=== PATIENT | female | born 1960 | race Caucasian/White ===

== ENCOUNTER 2020-07-21 07:52 | Outpatient (REF) | payer OTHER, SELFPAY ==
--- NOTE | 2020-07-21 08:12 | US_ITS ---
EXAMINATION: US COMPLETE ABDOMEN WITH LIVER ELASTOGRAPHY CLINICAL INFORMATION: Abdominal fullness. Assess for cholelithiasis, hepatic steatosis COMPARISON: Ultrasound abdomen 07/23/2016 TECHNIQUE: Real-time imaging of the abdominal viscera. Noninvasive ultrasound liver fibrosis assessment is performed using Timi ElastPQ point quantification shear wave elastography (pSWE) with a 5 MHz transducer. Multiple elastography samples are obtained. FINDINGS: PANCREAS: The visualized pancreas is normal in size and contour and echogenicity. There is no pancreatic ductal distention or retroperitoneal effusion. The distal body and tail are obscured by bowel gas and not imaged. ABDOMINAL AORTA: The proximal, middle, and distal aortic segments are normal in caliber. INFERIOR VENA CAVA: Visualized portions are normal. LIVER: The liver is normal in size and smooth in contour. There is mild increased hepatic parenchymal echogenicity suggesting mild hepatic steatosis. There is no focal hepatic parenchymal lesion or intrahepatic ductal dilatation. The right lobe measures 14.9 cm in length. The left lobe measures 9.3 cm in length. Doppler shows portal flow towards the liver. Shear wave elastography provides a median stiffness of 1.68 m/s (reference: normal median stiffness is 0.81 - 1.22 m/s). The IQR/median stiffness to assess sampling precision is 0.28 (reference: optimal IQR/median stiffness is under 0.3). GALLBLADDER: Normal. The gallbladder is physiologically distended without evidence of stones, sludge, polyps, wall thickening or pericholecystic fluid. COMMON BILE DUCT: Normal in caliber measuring 0.3 cm in diameter. RIGHT KIDNEY: Normal. No hydronephrosis. No renal calculi or focal parenchymal lesions. The kidney measures 10.4 cm in maximum dimension. LEFT KIDNEY: Normal. No hydronephrosis. No renal calculi or focal parenchymal lesions. The kidney measures 10.2 cm in maximum dimension. SPLEEN: Normal. The spleen measures 8.5 cm in maximum dimension. FREE FLUID: None. US/US abdomen comp w elastography IMPRESSION: 1. Mild increased hepatic parenchymal echogenicity suggesting mild hepatic steatosis. No focal parenchymal lesion. 2. Elastography: Liver elastography measurements are consistent with a moderate risk for clinically significant liver fibrosis (METAVIR Stage F2-F3). 3. No cholelithiasis or ductal dilatation.
== END 2020-07-21 07:53 | disposition home or self-care (01) ==
LOC: HO.US 07:52
PROVIDERS: Visit Provider Internal Medicine Gastroenterology
DX: R19.8 Other specified symptoms and signs involving the digestive system and abdomen (principal); Z87.19 Personal history of other diseases of the digestive system
CPT/HCPCS: 76705; 76981

== ENCOUNTER → 2020-09-07 11:06 | Outpatient (BNVA) | payer OTHER, SELFPAY | PROVIDERS: PCP Internal Medicine; Visit Provider Internal Medicine Gastroenterology | DX: Z76.89 Persons encountering health services in other specified circumstances (principal) ==

== ENCOUNTER 2020-12-20 09:54 | Outpatient (REF) | payer OTHER, SELFPAY ==
[2020-12-20 11:18] LABS: MANUAL DIFF FLAG NO
[2020-12-20 11:29] LABS: Basophils Percent Auto 0.7 % (0-2); Eosinophils Absolute Auto 0.1 X10*3/uL (0.0-0.4); Eosinophils Percent Auto 2.1 % (0-4); Hematocrit 42.4 % (37-47); Hemoglobin 13.4 g/dl (12.0-16.0); Imm Gran Abs Auto 0.01 X10*3/uL (0.00-0.03); Imm Gran Pct Auto 0.2 % (0.0-0.4); Lymphocytes Absolute Auto 2.2 X10*3/uL (1.2-4.9); Lymphocytes Percent Auto 36.6 % (20-40); Mean Corpuscular HGB Conc 31.6 g/dl (31.0-35.0); Mean Corpuscular Hemoglobin 27.7 pg (27.0-33.0); Mean Corpuscular Volume 87.8 fL (80-98); Mean Platelet Volume 10.3 fL (9.4-12.3); Monocytes Absolute Auto 0.4 X10*3/uL (0.1-1.2); Monocytes Percent Auto 6.9 % (2-11); Neutrophils Absolute Auto 3.3 X10*3/uL (2.0-8.3); Neutrophils Percent Auto 53.5 % (45-73); Platelet Count 217 X10*3/uL (160-400); Red Blood Count 4.83 X10*6/uL (4.20-5.50); Red Cell Distribution Width 12.7 % (11.0-16.0); White Blood Count 6.1 X10*3/uL (4.8-10.8)
[2020-12-20 11:56] LABS: Alanine Aminotransferase 18 U/L (0-31); Albumin Level 4.5 g/dL (3.5-5.0); Alkaline Phosphatase 54 U/L (39-117); Anion Gap 13 (12-20); Aspartate Amino Transferase 16 U/L (5-31); Bilirubin Total 0.6 mg/dL (0.0-1.0); Blood Urea Nitrogen 22 mg/dL (9-16); Calcium 9.1 mg/dL (8.4-10.2); Carbon Dioxide 27 mmol/L (22-29); Chloride 107 mmol/L (96-108); Cholesterol 204 mg/dL; Estimated Glomerular Filt Rate > 60; Glucose Fasting 99 mg/dL (60-99); HDL Cholesterol 55 mg/dL; LDL Cholesterol Calculated 132 mg/dl; Magnesium 2.2 mg/dL (1.6-2.6); Potassium 4.6 mmol/L (3.3-5.1); Sodium 142 mmol/L (135-145); Total Protein 7.2 g/dL (6.5-8.0); Triglycerides 88 mg/dL
[2020-12-20 12:05] LABS: TSH reflex Free T4 0.56 uIU/mL (0.32-4.0)
[2020-12-20 12:18] LABS: Vitamin B12 722 pg/mL (200-900)
[2020-12-25 15:32] LABS: Vitamin D 25-OH, D2 <4 ng/mL; Vitamin D 25-OH, D3 28 ng/mL; Vitamin D 25-OH, Total 28 ng/mL (30-100)
== END 2020-12-20 09:55 | disposition home or self-care (01) ==
LOC: HO.HMGCLDS 09:54
PROVIDERS: PCP Internal Medicine; Visit Provider Internal Medicine
DX: Z00.01 Encounter for general adult medical examination with abnormal findings (principal); F34.1 Dysthymic disorder; R53.83 Other fatigue; Z91.09 Other allergy status, other than to drugs and biological substances
CPT/HCPCS: 36415; 80053; 80061; 82306; 82607; 83735; 84443; 85025

== ENCOUNTER 2021-06-06 10:50 | Outpatient (REF) | payer OTHER, SELFPAY ==
[2021-06-06 13:57] LABS: MANUAL DIFF FLAG NO
[2021-06-06 14:11] LABS: Appearance Urine CLOUDY; Color Urine YELLOW; Glucose Urine UA NEG (NEG); Leukocyte Esterase Urine NEG (NEG); Nitrite Urine NEG (NEG); PH 5.5 (5.0-8.0); Specific Gravity - Urine >= 1.030 (1.005-1.025); Urine Blood NEG (NEG); Urine Ketones NEG (NEG); Urine Protein NEG (NEG-TRACE)
[2021-06-06 14:13] LABS: Basophils Absolute Auto 0.1 X10*3/uL (0.0-0.2); Basophils Percent Auto 0.6 % (0-2); Eosinophils Absolute Auto 0.1 X10*3/uL (0.0-0.4); Eosinophils Percent Auto 0.8 % (0-4); Hematocrit 39.2 % (37-47); Hemoglobin 12.9 g/dl (12.0-16.0); Imm Gran Abs Auto 0.03 X10*3/uL (0.00-0.03); Imm Gran Pct Auto 0.3 % (0.0-0.4); Lymphocytes Absolute Auto 2.4 X10*3/uL (1.2-4.9); Lymphocytes Percent Auto 22.9 % (20-40); Mean Corpuscular HGB Conc 32.9 g/dl (31.0-35.0); Mean Corpuscular Hemoglobin 28.4 pg (27.0-33.0); Mean Corpuscular Volume 86.2 fL (80-98); Mean Platelet Volume 10.6 fL (9.4-12.3); Monocytes Absolute Auto 0.7 X10*3/uL (0.1-1.2); Monocytes Percent Auto 6.3 % (2-11); Neutrophils Absolute Auto 7.3 X10*3/uL (2.0-8.3); Neutrophils Percent Auto 69.1 % (45-73); Platelet Count 198 X10*3/uL (160-400); Red Blood Count 4.55 X10*6/uL (4.20-5.50); Red Cell Distribution Width 13.2 % (11.0-16.0); White Blood Count 10.6 X10*3/uL (4.8-10.8)
[2021-06-06 14:17] LABS: Alanine Aminotransferase 16 U/L (0-31); Albumin Level 4.3 g/dL (3.5-5.0); Alkaline Phosphatase 59 U/L (39-117); Anion Gap 12 (12-20); Aspartate Amino Transferase 17 U/L (5-31); Bilirubin Total 0.7 mg/dL (0.0-1.0); Blood Urea Nitrogen 16 mg/dL (9-16); Calcium 9.8 mg/dL (8.4-10.2); Carbon Dioxide 26 mmol/L (22-29); Chloride 107 mmol/L (96-108); Estimated Glomerular Filt Rate > 60; Glucose Random 91 mg/dL (60-115); Potassium 4.3 mmol/L (3.3-5.1); Sodium 141 mmol/L (135-145); Total Protein 6.9 g/dL (6.5-8.0)
[2021-06-06 14:38] LABS: TSH reflex Free T4 0.59 uIU/mL (0.32-4.0)
[2021-06-06 14:47] LABS: Vitamin B12 767 pg/mL (200-900)
[2021-06-11 12:22] LABS: Vitamin D 25-OH, D2 <4 ng/mL; Vitamin D 25-OH, D3 23 ng/mL; Vitamin D 25-OH, Total 23 ng/mL (30-100)
== END 2021-06-06 10:51 | disposition home or self-care (01) ==
LOC: HO.HMGCLDS 10:50
PROVIDERS: PCP Internal Medicine; Visit Provider Internal Medicine
DX: M62.89 Other specified disorders of muscle (principal); R21 Rash and other nonspecific skin eruption; R53.83 Other fatigue
CPT/HCPCS: 36415; 80053; 81003; 82306; 82550; 82607; 84443; 85025

== ENCOUNTER 2021-07-17 16:38 | Outpatient (REF) | payer OTHER, SELFPAY ==
[2021-07-18 09:26] LABS: BV Int Neg Control Negative (Negative); BV Int Pos Control Positive (Positive)
== END 2021-07-17 16:39 | disposition home or self-care (01) ==
LOC: HO.LNP 16:38
PROVIDERS: Visit Provider Physician Assistant Medical
DX: N76.0 Acute vaginitis (principal)
CPT/HCPCS: 87480; 87510; 87660

== ENCOUNTER → 2021-12-25 09:37 | Outpatient (BNVA) | payer OTHER, SELFPAY | PROVIDERS: Referring Provider Internal Medicine; Visit Provider Internal Medicine Gastroenterology | DX: K76.0 Fatty (change of) liver, not elsewhere classified (principal); K75.81 Nonalcoholic steatohepatitis (NASH) | CPT/HCPCS: 99212 ==

== ENCOUNTER 2022-01-26 09:53 | Outpatient (REF) | payer OTHER, SELFPAY ==
--- NOTE | ~2022-01-26 | XR_ITS ---
EXAMINATION: XR FOOT, LEFT CLINICAL INFORMATION: Pain left foot. COMPARISON: None TECHNIQUE: AP, lateral, and oblique views of the left foot. FINDINGS: The ankle mortise and subtalar joints are normal. There is no visible acute fracture, dislocation or subluxation seen. The soft tissues are normal. XR/XR foot LT 2V IMPRESSION: Unremarkable left foot.
[2022-01-26 11:16] LABS: MANUAL DIFF FLAG NO
[2022-01-26 11:21] LABS: Basophils Absolute Auto 0.1 X10*3/uL (0.0-0.2); Basophils Percent Auto 0.9 % (0-2); Eosinophils Absolute Auto 0.2 X10*3/uL (0.0-0.4); Eosinophils Percent Auto 2.6 % (0-4); Hemoglobin 13.3 g/dl (12.0-16.0); Imm Gran Abs Auto 0.01 X10*3/uL (0.00-0.03); Imm Gran Pct Auto 0.2 % (0.0-0.4); Lymphocytes Absolute Auto 2.9 X10*3/uL (1.2-4.9); Lymphocytes Percent Auto 43.4 % (20-40); Mean Corpuscular HGB Conc 32.4 g/dl (31.0-35.0); Mean Corpuscular Hemoglobin 27.5 pg (27.0-33.0); Mean Corpuscular Volume 84.7 fL (80.0-98.0); Mean Platelet Volume 10.5 fL (9.4-12.3); Monocytes Absolute Auto 0.5 X10*3/uL (0.1-1.2); Monocytes Percent Auto 7.6 % (2-11); Neutrophils Percent Auto 45.3 % (45-73); Platelet Count 203 X10*3/uL (160-400); Red Blood Count 4.84 X10*6/uL (4.20-5.50); Red Cell Distribution Width 12.9 % (11.0-16.0); White Blood Count 6.6 X10*3/uL (4.8-10.8)
[2022-01-26 11:27] LABS: INTERNATIONAL NORM RATIO 1.1 (0.9-1.1); Prothrombin Time 12.7 SEC (9.9-13.0)
[2022-01-26 12:10] LABS: TSH reflex Free T4 1.24 uIU/mL (0.32-4.0)
[2022-01-26 12:11] LABS: Alanine Aminotransferase 20 U/L (0-31); Albumin Level 4.6 g/dL (3.5-5.0); Alkaline Phosphatase 68 U/L (39-117); Anion Gap 13 (12-20); Aspartate Amino Transferase 18 U/L (5-31); Bilirubin Total 0.7 mg/dL (0.0-1.0); Blood Urea Nitrogen 19 mg/dL (9-16); Calcium 9.9 mg/dL (8.4-10.2); Carbon Dioxide 26 mmol/L (22-29); Chloride 105 mmol/L (96-108); Estimated Glomerular Filt Rate > 60; Glucose Fasting 95 mg/dL (60-99); Potassium 4.9 mmol/L (3.3-5.1); Sodium 139 mmol/L (135-145); Total Protein 7.6 g/dL (6.5-8.0)
[2022-01-26 12:26] LABS: Ferritin 188 ng/mL (10-250); Folate 13.8 ng/mL (> or = 4.0); Vitamin B12 806 pg/mL (200-900)
[2022-02-01 12:36] LABS: Vitamin D 25-OH, D2 <4 ng/mL; Vitamin D 25-OH, D3 23 ng/mL; Vitamin D 25-OH, Total 23 ng/mL (30-100)
== END 2022-01-26 09:54 | disposition home or self-care (01) ==
LOC: HO.HMGCLDS 09:53
PROVIDERS: PCP Internal Medicine; Visit Provider Internal Medicine Gastroenterology
DX: Z00.01 Encounter for general adult medical examination with abnormal findings (principal); K75.81 Nonalcoholic steatohepatitis (NASH); M79.672 Pain in left foot; G47.9 Sleep disorder, unspecified; R53.83 Other fatigue
CPT/HCPCS: 36415; 73620; 80053; 82306; 82607; 82728; 82746; 84443; 85025; 85610

== ENCOUNTER 2022-02-05 10:31 | Outpatient (REF) | payer OTHER, SELFPAY ==
--- NOTE | ~2022-02-05 | US_ITS ---
EXAMINATION: US ABDOMEN LIMITED WITH LIVER ELASTOGRAPHY CLINICAL INFORMATION: Fatty change of liver. COMPARISON: None. TECHNIQUE: Real-time imaging of the abdominal viscera. Noninvasive ultrasound liver fibrosis assessment is performed using Timi ElastPQ point quantification shear wave elastography (2D-SWE) with a C5-2 MHz transducer. Multiple elastography samples are obtained. FINDINGS: PANCREAS: Normal. The visualized pancreatic head and body are normal in appearance. The remainder of the pancreas is obscured from visualization by the overlying bowel gas. LIVER: The liver demonstrates normal size, contour and echogenicity. No focal lesion or intrahepatic biliary duct dilatation. The right lobe measures 15.0 cm in length. The left lobe measures 8.3 cm in length. Portal flow is hepatopedal. Shear wave liver elastography median stiffness is 1.5 m/s (reference: normal median stiffness is 1.3 m/s or less). Previously it measured 1.68 m/s. IQR/median stiffness to assess sampling precision is 0.08 (reference: good quality data set is IQR/median stiffness of 0.15 or less). Previously measured 0.28. GALLBLADDER: Normal. The gallbladder is physiologically distended without evidence of stones, sludge, polyps, wall thickening or pericholecystic fluid. COMMON BILE DUCT: Normal in caliber measuring 0.32 cm in diameter. RIGHT KIDNEY: Normal. No hydronephrosis. No renal calculi or focal parenchymal lesions. The kidney measures 10.0 cm in maximum dimension. FREE FLUID: None. US/US abdomen zuñiga w elastography IMPRESSION: 1. Normal hepatic liver echotexture. No focal lesion. 2. Pancreas, gallbladder, common bile duct and right kidney are unremarkable. 2. Liver elastography: Median liver stiffness measures 1.5 corresponding to cACL ruled out. REFERENCE: Society of Radiologists in Ultrasound Liver Stiffness Thresholds (2020): LIVER STIFFNESS THRESHOLDS: *Liver Stiffness equal or less than 1.3 m/s: High probability of being normal. *Liver Stiffness less than 1.7 m/s: In the absence of other known clinical signs, rules out compensated advanced chronic liver disease. *Liver Stiffness 1.7-2.1 m/s: Suggestive of compensated advanced chronic liver disease but need further test for confirmation. *Liver Stiffness over 2.1 m/s: Rules in compensated advanced chronic liver disease. *Liver Stiffness over 2.4 m/s: Suggestive of clinically significant portal hypertension. QUALITY OF DATA SET: *IQR/Median value equal or less than 0.15 implies a quality data set. *IQR/Median value over 0.15 implies a poor quality data set. SIGNIFICANT CHANGE FROM PRIOR EXAM: Significant change if liver stiffness measurement is 10% or greater from prior exam. OTHER CONSIDERATIONS: The stage of liver fibrosis may be overestimated in the setting of acute hepatitis, liver inflammation, elevated liver function tests, hepatic vascular congestion, obstructive cholestasis, non-fasting state, and infiltrative diseases such as amyloidosis and lymphoma. In some patients with NAFLD, the liver stiffness thresholds for compensated advanced chronic liver disease may be lower. In causes other than viral hepatitis and NAFLD, liver stiffness thresholds are not well established.
== END 2022-02-05 10:32 | disposition home or self-care (01) ==
LOC: HO.US 10:31
PROVIDERS: Visit Provider Internal Medicine Gastroenterology
DX: K76.0 Fatty (change of) liver, not elsewhere classified (principal)
CPT/HCPCS: 76705; 76981

== ENCOUNTER → 2022-06-05 12:36 | Outpatient (BNVA) | payer OTHER, SELFPAY | PROVIDERS: PCP Internal Medicine; Visit Provider Nurse Practitioner Family | DX: G47.9 Sleep disorder, unspecified (principal); R40.0 Somnolence; R06.83 Snoring; R20.0 Anesthesia of skin | CPT/HCPCS: 99202 ==

== ENCOUNTER → 2022-06-18 14:28 | Outpatient (REF) | payer OTHER, SELFPAY | LOC: HO.SL 14:28 | PROVIDERS: PCP Internal Medicine; Visit Provider Nurse Practitioner Family | DX: G47.9 Sleep disorder, unspecified (principal); R40.0 Somnolence; R06.83 Snoring | CPT/HCPCS: 95806 ==

== ENCOUNTER → 2022-11-06 10:54 | Outpatient (BNVA) | payer OTHER, SELFPAY | PROVIDERS: PCP Internal Medicine; Visit Provider Nurse Practitioner Family | DX: R06.83 Snoring (principal); R20.0 Anesthesia of skin | CPT/HCPCS: 99212 ==

== ENCOUNTER 2023-01-17 12:07 | Outpatient (REF) | payer OTHER, SELFPAY ==
--- NOTE | 2023-01-17 10:30 | EMG_ITS ---
Bilateral median and ulnar motor and sensory studies were performed. Bilateral radial sensory studies were performed and paraspinal muscles were tested with a needle. IMPRESSION: 1. [id number] left median neuropathy across carpal tunnel. 2. Mild bilateral ulnar neuropathy across cubital tunnel. MD SHAKIRA Jean/NAVARRO / [id number]
== END 2023-01-17 12:08 | disposition home or self-care (01) ==
LOC: HO.NEURO 12:07
PROVIDERS: PCP Internal Medicine; Visit Provider Nurse Practitioner Family
DX: R20.0 Anesthesia of skin (principal)
CPT/HCPCS: 95886; 95911

== ENCOUNTER 2023-02-04 06:42 | Outpatient (REF) | payer OTHER, SELFPAY ==
[2023-02-04 11:20] LABS: MANUAL DIFF FLAG NO
[2023-02-04 11:39] LABS: Basophils Absolute Auto 0.1 X10*3/uL (0.0-0.2); Basophils Percent Auto 1.1 % (0-2); Eosinophils Absolute Auto 0.3 X10*3/uL (0.0-0.4); Hematocrit 41.7 % (37.0-47.0); Hemoglobin 13.3 g/dl (12.0-16.0); Imm Gran Abs Auto 0.01 X10*3/uL (0.00-0.03); Imm Gran Pct Auto 0.2 % (0.0-0.4); Immature Retic Fraction 9.3 % (3.0-15.9); Lymphocytes Absolute Auto 2.6 X10*3/uL (1.2-4.9); Lymphocytes Percent Auto 42.3 % (20-40); Mean Corpuscular HGB Conc 31.9 g/dl (31.0-35.0); Mean Corpuscular Hemoglobin 27.7 pg (27.0-33.0); Mean Corpuscular Volume 86.9 fL (80.0-98.0); Mean Platelet Volume 10.3 fL (9.4-12.3); Monocytes Absolute Auto 0.5 X10*3/uL (0.1-1.2); Monocytes Percent Auto 8.5 % (2-11); Neutrophils Absolute Auto 2.7 x10*3/uL (2.0-8.3); Neutrophils Percent Auto 43.9 % (45-73); Platelet Count 225 X10*3/uL (160-400); Retic HGB Equivalent 33.4 pg (30.0-35.0); Reticulocyte Percent 1.6 % (0.5-1.8); Reticulocytes Absolute 0.077 X10*6/uL (0.026-0.095); White Blood Count 6.2 X10*3/uL (4.8-10.8)
[2023-02-04 12:02] LABS: Alanine Aminotransferase 17 U/L (0-31); Albumin Level 4.3 g/dL (3.5-5.0); Alkaline Phosphatase 67 U/L (39-117); Anion Gap 10 (12-20); Aspartate Amino Transferase 14 U/L (5-31); Bilirubin Total 0.4 mg/dL (0.0-1.0); Blood Urea Nitrogen 18 mg/dL (9-16); Calcium 9.1 mg/dL (8.4-10.2); Carbon Dioxide 27 mmol/L (22-29); Chloride 110 mmol/L (96-108); Cholesterol 191 mg/dL; Estimated Glomerular Filt Rate > 60; Glucose Fasting 102 mg/dL (60-99); HDL Cholesterol 45 mg/dL; LDL Cholesterol Calculated 126 mg/dl; Potassium 4.5 mmol/L (3.3-5.1); Sodium 142 mmol/L (135-145); Total Protein 6.8 g/dL (6.5-8.0); Triglycerides 104 mg/dL
[2023-02-04 12:19] LABS: TSH reflex Free T4 1.41 uIU/mL (0.32-4.0)
[2023-02-09 12:42] LABS: Vitamin D 25-OH, D2 <4 ng/mL; Vitamin D 25-OH, D3 22 ng/mL; Vitamin D 25-OH, Total 22 ng/mL (30-100)
== END 2023-02-04 06:43 | disposition home or self-care (01) ==
LOC: HO.HMGCLDS 06:42
PROVIDERS: PCP Internal Medicine; Visit Provider Internal Medicine
DX: Z00.01 Encounter for general adult medical examination with abnormal findings (principal); K76.0 Fatty (change of) liver, not elsewhere classified; R20.0 Anesthesia of skin
CPT/HCPCS: 36415; 80053; 80061; 82306; 84443; 85025; 85045

== ENCOUNTER 2023-10-22 11:59 | Outpatient (AMB) | payer OTHER, SELFPAY ==
[2023-10-22 12:16] VITALS: BP 130/80; PULSE 70; O2SAT 97; BMI 30.6
--- NOTE | 2023-10-22 12:16 | A.OFFPC_ITS ---
Vital Signs 10/22/23 12:16 Height 5 ft 5 in Weight 184 lb BMI 30.6 BP 130/80 Blood Pressure Location Rt brachial Position Sitting Pulse 70 Pulse Source Pulse Oximeter Pulse Oximetry (%) 97 Oxygen Delivery Method Room Air Intake Visit Reasons: Asthma Allergies codeine [CODEINE] Allergy (Intermediate, Verified 10/22/23 12:16) DIZZINESS loratadine [LORATADINE] Allergy (Intermediate, Verified 10/22/23 12:16) NOSEBLEED, nose bleed, nose bleed,headaches amoxicillin [AMOXICILLIN] Allergy (Unknown, Verified 10/22/23 12:16) UNKNOWN REACTION-CHILDHOOD ALLERGY Environmental Allergy (Unknown, Uncoded 11/06/22 10:59) unknown Codeine Phosphate Adverse Reaction (Unknown, Uncoded 11/06/22 10:59) lightheaded Medication List - Last Reconciled 10/22/23 by Arabella Breaux MD albuterol sulfate 90 mcg/actuation (ProAir HFA) 1 inh inhalation QID PRN 30 days mometasone-formoterol 100-5 mcg/actuation (Dulera) 2 puffs inhalation BID 30 days Tobacco use date assessed: 10/22/23 Dental Screening Dental Screen Date: 10/22/23 Did you have a dental visit in the last 12 months?: Yes Did you have a dental problem in the last 6 months where you did not have access to dental care?: No Was dental information given to patient?: Patient has dentist HPI Asthma HPI Details Patient is 63-year-old female came in today to be evaluated for exacerbation of asthma Patient says that she has been feeling like that for the 5 month she waited but is not getting better Now she is having clear mucus with cough when she exerts. She is also feeling tired and fatigue There is no fever chills no chest pain no nausea no vomiting no abdominal pain She has not been using her maintenance inhaler correctly She is on Dulera and she is only using it as needed Explained to patient that she needs to start using it every day 2 puffs 12 hours apart and rinse her mouth after Albuterol alone will not control her asthma I have sent refill for both inhalers Patient is to give me a call in a month if she has not feeling better I have also ordered labs for her [facility] Medical History Hepatic steatosis Abdominal fullness GERD (gastroesophageal reflux disease) Surgical History Hx of brain surgery Hx of colonoscopy Family History Father No problems noted. Mother No problems noted. 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 Taj Gale, Michelle Su, Dani Campa and colleagues, with an educational jarocho from [employer]. Review of Systems Const Denies chills and Denies fever(s) ENT Denies epistaxis and Denies nasal discharge Card Denies chest pain Resp Denies hemoptysis GI Denies diarrhea and Denies nausea Skin/Breast Denies rash Neuro Reports no additional complaints Psych Reports no additional complaints Endo Reports no additional complaints Physical exam (Primary Care) Vital Signs: Last Vital Signs Pulse 70 10/22/23 12:16 BP 130/80 10/22/23 12:16 Pulse Ox 97 10/22/23 12:16 Oxygen Delivery Method Room Air 10/22/23 12:16 BMI result Body Mass Index 30.6 Tobacco/Smoking Status: Tobacco use Status Tobacco use date assessed 10/22/23 10/22/23 12:18 Patient Tobacco Use Status Former Tobacco user 10/22/23 12:18 e-Cigarette/Vaping Use Never Used 10/22/23 12:18 Thrive Assessment: Date of Thrive Assessment Date Thrive assessed 02/01/23 10/22/23 12:18 Const General: cooperative, comfortable and no acute distress Orientation/consciousness: patient oriented x3 HENMT Head: Yes normocephalic Eyes General: appearance normal, both eyes and all related structures Neck Neck: Yes supple Resp Effort & Inspection: normal respiratory effort, no cough and no stridor Cardio Rhythm: regular rhythm Heart sounds: S1 normal heart sound present and S2 normal heart sound present Skin General skin exam: turgor normal Neuro General: patient oriented x3, tone normal and moves all extremities Extrem Right lower extremity: no edema Left lower extremity: no edema Assessment and Plan Assessment & Plan (1) Asthma exacerbation: Code(s): J45.901 - Unspecified asthma with (acute) exacerbation Qualifiers: Asthma persistence: persistent Asthma severity: moderate Qualified Code(s): J45.41 - Moderate persistent asthma with (acute) exacerbation (2) Tired: Code(s): R53.83 - Other fatigue (3) Fatigue: Code(s): R53.83 - Other fatigue Qualifiers: Fatigue type: chronic, unspecified Qualified Code(s): R53.82 - Chronic fatigue, unspecified Plan Patient is 63-year-old female came in today to be evaluated for exacerbation of asthma Patient says that she has been feeling like that for the 5 month she waited but is not getting better Now she is having clear mucus with cough when she exerts. She is also feeling tired and fatigue There is no fever chills no chest pain no nausea no vomiting no abdominal pain She has not been using her maintenance inhaler correctly She is on Dulera and she is only using it as needed Explained to patient that she needs to start using it every day 2 puffs 12 hours apart and rinse her mouth after Albuterol alone will not control her asthma I have sent refill for both inhalers Patient is to give me a call in a month if she has not feeling better I have also ordered labs for her Orders: Orders Comprehensive Met. Panel Today J45.901 - Unspecified asthma with (acute) exacerbation, R53.83 - Other fatigue TSH reflex Free T4 Today J45.901 - Unspecified asthma with (acute) exacerbation, R53.83 - Other fatigue Vitamin D 25-OH (D2 and D3) Today J45.90 - Unspecified asthma with (acute) exacerbation, R53.83 - Other fatigue Vitamin B12 Today J45.901 - Unspecified asthma with (acute) exacerbation, R53.83 - Other fatigue Complete Blood Count Auto Diff Today J45.90 - Unspecified asthma with (acute) exacerbation, R53.83 - Other fatigue Medications: Changed From mometasone-formoterol 100-5 mcg/actuation (Dulera) 2 puffs inhalation BID 30 days 8.8 grams 3RF To mometasone-formoterol 100-5 mcg/actuation (Dulera) Take 2 puffs 12 hours apart, rinse your mouth after 2 puffs inhalation BID 8.8 grams 6RF 30 days Refilled albuterol sulfate 90 mcg/actuation (ProAir HFA) 1 inh inhalation QID PRN 18 grams 3RF shortness of breath or wheezing 30 days Coding Level of Care Code Est Pt Level 4 (07119) Diagnoses Moderate persistent asthma with exacerbation J45.41 Asthma persistence: persistent Asthma severity: moderate Tired R53.83 Chronic fatigue R53.82 Fatigue type: chronic, unspecified
== END 2023-10-22 16:21 | disposition home or self-care (01) ==
PROVIDERS: PCP Internal Medicine; Visit Provider Internal Medicine
DX: J45.41 Moderate persistent asthma with (acute) exacerbation (principal); R53.83 Other fatigue; R53.82 Chronic fatigue, unspecified
CPT/HCPCS: 99214

== ENCOUNTER 2023-10-22 12:31 | Outpatient (REF) | payer OTHER, SELFPAY ==
[2023-10-22 16:13] LABS: MANUAL DIFF FLAG NO
[2023-10-22 16:17] LABS: Basophils Absolute Auto 0.1 X10*3/uL (0.0-0.2); Eosinophils Absolute Auto 0.3 X10*3/uL (0.0-0.4); Eosinophils Percent Auto 3.2 % (0-4); Hematocrit 40.5 % (37.0-47.0); Hemoglobin 13.1 g/dl (12.0-16.0); Imm Gran Abs Auto 0.02 X10*3/uL (0.00-0.03); Imm Gran Pct Auto 0.2 % (0.0-0.4); Lymphocytes Absolute Auto 2.5 X10*3/uL (1.2-4.9); Lymphocytes Percent Auto 30.1 % (20-40); Mean Corpuscular HGB Conc 32.3 g/dl (31.0-35.0); Mean Corpuscular Hemoglobin 27.6 pg (27.0-33.0); Mean Corpuscular Volume 85.3 fL (80.0-98.0); Mean Platelet Volume 10.6 fL (9.4-12.3); Monocytes Absolute Auto 0.6 X10*3/uL (0.1-1.2); Monocytes Percent Auto 7.2 % (2-11); Neutrophils Absolute Auto 4.8 x10*3/uL (2.0-8.3); Neutrophils Percent Auto 58.3 % (45-73); Platelet Count 227 X10*3/uL (160-400); Red Blood Count 4.75 X10*6/uL (4.20-5.50); Red Cell Distribution Width 13.1 % (11.0-16.0); White Blood Count 8.2 X10*3/uL (4.8-10.8)
[2023-10-22 16:48] LABS: Alanine Aminotransferase 16 U/L (0-31); Albumin Level 4.3 g/dL (3.5-5.0); Alkaline Phosphatase 70 U/L (39-117); Anion Gap 11 (12-20); Aspartate Amino Transferase 15 U/L (5-31); Bilirubin Total 0.2 mg/dL (0.0-1.0); Blood Urea Nitrogen 18 mg/dL (9-16); Calcium 9.6 mg/dL (8.4-10.2); Carbon Dioxide 26 mmol/L (22-29); Chloride 109 mmol/L (96-108); Estimated Glomerular Filt Rate > 60; Glucose Random 85 mg/dL (60-115); Sodium 142 mmol/L (135-145); Total Protein 7.4 g/dL (6.5-8.0)
[2023-10-22 16:50] LABS: TSH reflex Free T4 0.81 uIU/mL (0.32-4.0)
[2023-10-22 16:54] LABS: Vitamin B12 834 pg/mL (200-900)
[2023-10-27 15:14] LABS: Vitamin D 25-OH, D2 <4 ng/mL; Vitamin D 25-OH, D3 16 ng/mL; Vitamin D 25-OH, Total 16 ng/mL (30-100)
== END 2023-10-22 12:32 | disposition home or self-care (01) ==
LOC: HO.HMGCLDS 12:31
PROVIDERS: PCP Internal Medicine; Visit Provider Internal Medicine
DX: R53.83 Other fatigue (principal); J45.901 Unspecified asthma with (acute) exacerbation
CPT/HCPCS: 36415; 80053; 82306; 82607; 84443; 85025

== ENCOUNTER 2023-10-28 09:54 | Outpatient (AMB) | payer OTHER, SELFPAY ==
--- NOTE | 2023-10-28 10:14 | A.OFFVIS_ITS ---
Intake Vital Signs 10/28/23 10:17 Height 5 ft 5 in Weight 184 lb BMI 30.6 BP 116/59 L Blood Pressure Location Lt brachial Position Sitting Pulse 72 Intake Visit Reasons: PT REQ APPOINTMENT ABDOMINAL PAIN Intake Note: Patient foloow up for abdominal pain. 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: No Accompanied by: Self / Same As Patient Allergies codeine [CODEINE] Allergy (Intermediate, Verified 10/28/23 10:12) DIZZINESS loratadine [LORATADINE] Allergy (Intermediate, Verified 10/28/23 10:12) NOSEBLEED, nose bleed, nose bleed,headaches amoxicillin [AMOXICILLIN] Allergy (Unknown, Verified 10/28/23 10:12) UNKNOWN REACTION-CHILDHOOD ALLERGY Environmental Allergy (Unknown, Uncoded 11/06/22 10:59) unknown Codeine Phosphate Adverse Reaction (Unknown, Uncoded 11/06/22 10:59) lightheaded HPI PT REQ APPOINTMENT ABDOMINAL PAIN HPI Details 63 yr old f here for f/u RECAP; last seen [address] Hyatt for fatty liver she had hep C treatment 2017 for G3 and had treatment with cure ]] INTERIM: SHe has been having worsening GERD for 1 year with epigastric discomfort she has mild nausea no vomiting she has noted blood MO, sometimes streaks in pants she had omeprazole in past and gave her diarrhea denies straining at stool EXAM: GENERAL: The patient is well developed and nontoxic. VITAL SIGNS:see workflow HEENT: Nonicteric sclerae, PERRLA, EOMI. Oropharynx clear. Moist mucous membranes. Conjunctivae appear well perfused. No thyroid mass. CHEST: Chest wall is nontender. HEART: Regular rate and rhythm without murmurs. LUNGS: Clear to auscultation bilaterally. ABDOMEN: Soft, positive bowel sounds, nontender, no organomegaly.no flank tenderness SKIN: No rash, no excessive bruising, petechiae, or purpura. NEUROLOGIC: Cranial nerves II-XII intact without motor/sensory deficit. A/P: NAFLD< LFT have been normal, REctal bleeding, could be hemorrhoids, proctitis GERD and epigastric discomfort- PLAN: 1/EGD and colo w suprep and zofran 2/ H pylori breath test, stop pepcid for 3 d and can use carafate, 3/ recent labs from PCP reviewed 10/22-- nml HGB [facility] Medical History Hepatic steatosis Abdominal fullness GERD (gastroesophageal reflux disease) Surgical History Hx of brain surgery Hx of colonoscopy Family History Father No problems noted. Mother No problems noted. 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 Cognitive needs: No Hearing needs: No Vision needs: No Physical Exam Vital Signs: Last Vital Signs Pulse 72 10/28/23 10:17 BP 116/59 L 10/28/23 10:17 BMI result Body Mass Index 30.6 Assessment & Plan Assessment & Plan (1) GERD (gastroesophageal reflux disease): Code(s): K21.9 - Gastro-esophageal reflux disease without esophagitis Plan: NAFLD< LFT have been normal, REctal bleeding, could be hemorrhoids, proctitis GERD and epigastric discomfort- PLAN: 1/EGD and colo w suprep and zofran 2/ H pylori breath test, stop pepcid for 3 d and can use carafate, 3/ recent labs from PCP reviewed 10/22-- nml HGB (2) Hepatic steatosis: Code(s): K76.0 - Fatty (change of) liver, not elsewhere classified Plan: NAFLD< LFT have been normal, REctal bleeding, could be hemorrhoids, proctitis GERD and epigastric discomfort- PLAN: 1/EGD and colo w suprep and zofran 2/ H pylori breath test, stop pepcid for 3 d and can use carafate, 3/ recent labs from PCP reviewed 10/22-- nml HGB (3) Rectal bleeding: Code(s): K62.5 - Hemorrhage of anus and rectum Plan: NAFLD< LFT have been normal, REctal bleeding, could be hemorrhoids, proctitis GERD and epigastric discomfort- PLAN: 1/EGD and colo w suprep and zofran 2/ H pylori breath test, stop pepcid for 3 d and can use carafate, 3/ recent labs from PCP reviewed 10/22-- nml HGB Orders: Orders H Pylori Breath Test Today Medications: New sodium,potassium,mag sulfates 17.5-3.13-1.6 gram (Suprep Bowel Prep Kit) DILUTE; drink 1/2 at 6-8 pm and half at 11 PM- 1AM 354 mL 0RF ondansetron 4 mg PO Q8H PRN 7 tabs 0RF nausea and vomiting sucralfate (Carafate) swish in mouth and swallow; use after food/drink 5 mL PO QID 400 mL 0RF Coding Level of Care Code Est Pt Level 4 (29001) Diagnoses GERD (gastroesophageal reflux disease) K21.9 Hepatic steatosis K76.0 Rectal bleeding K62.5
[2023-10-28 10:17] VITALS: BP 116/59; PULSE 72; BMI 30.6
== END 2023-10-28 11:25 | disposition home or self-care (01) ==
PROVIDERS: PCP Internal Medicine; Visit Provider Internal Medicine Gastroenterology
DX: K21.9 Gastro-esophageal reflux disease without esophagitis (principal); K76.0 Fatty (change of) liver, not elsewhere classified; K62.5 Hemorrhage of anus and rectum
CPT/HCPCS: 99214

== ENCOUNTER → 2023-10-28 09:54 | Outpatient (BNVA) | payer OTHER, SELFPAY | PROVIDERS: PCP Internal Medicine; Visit Provider Internal Medicine Gastroenterology | DX: K21.9 Gastro-esophageal reflux disease without esophagitis (principal); R10.13 Epigastric pain; K76.0 Fatty (change of) liver, not elsewhere classified; K62.5 Hemorrhage of anus and rectum | CPT/HCPCS: 99212 ==

== ENCOUNTER 2023-10-30 10:45 | Day surgery (SDC) | payer OTHER, SELFPAY ==
--- NOTE | 2023-10-29 11:57 | P.CONAN_ITS ---
Documented by User: Kamille Richardson NP 10/29/23 11:57 HPI - Anesthesia Eval Consult details Narrative: 63yo F for Upper Endoscopy and Colonoscopy [facility] Active Problems Active Problems: All Active Problems (Updated 10/28/23 @ 10:45 by Grace Lou MD) Rectal bleeding (Acute) Asthma exacerbation (Acute) Fatigue (Acute) Seasonal asthma (Acute) Numbness in both hands (Acute) Snoring (Acute) Daytime sleepiness (Acute) Foot pain, left (Acute) Sleep disturbance (Acute) Fatty liver (Acute) Vaginitis (Acute) Rash (Acute) Muscle stiffness (Acute) Tired (Acute) Dermatitis (Acute) Dysthymia (Acute) Tired (Acute) Encounter for general adult medical examination with abnormal findings (Acute) Environmental allergies (Acute) Hepatic steatosis (Acute) Nausea (Acute) Abdominal fullness (Acute) GERD (gastroesophageal reflux disease) (Acute) Past Medical History Medical History Hepatic steatosis Abdominal fullness GERD (gastroesophageal reflux disease) Family History Family History Father No problems noted. Mother No problems noted. 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 Cognitive needs: No Hearing needs: No Vision needs: No Meds Allergies Allergy/AdvReac Type Severity Reaction Status Date / Time codeine [CODEINE] Allergy Intermediate DIZZINESS Verified 10/28/23 10:12 loratadine [LORATADINE] Allergy Intermediate NOSEBLEED, Verified 10/28/23 10:12 nose bleed, nose bleed,headaches amoxicillin [AMOXICILLIN] Allergy Unknown UNKNOWN Verified 10/28/23 10:12 REACTION-CHILDHOOD ALLERGY Environmental Allergy Unknown unknown Uncoded 11/06/22 10:59 Codeine Phosphate AdvReac Unknown lightheaded Uncoded 02/14/23 10:59 Assessment and Plan Assessment Anesthesia Assessment: Chart Reviewed Documented by User: Trev Solomon MD 10/30/23 11:02 PMFSH Past Medical History Medical History Hepatic steatosis Abdominal fullness GERD (gastroesophageal reflux disease) Family History Family History Father No problems noted. Mother No problems noted. Family history of problems with anesthesia: No Surgical History Surgical History Hx of brain surgery Hx of colonoscopy History of Problems with Anesthesia: No Social History Social History [facility]hold Members: None 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 Cognitive needs: No Hearing needs: No Vision needs: No Meds Allergies Allergy/AdvReac Type Severity Reaction Status Date / Time codeine [CODEINE] Allergy Intermediate DIZZINESS Verified 10/28/23 10:12 loratadine [LORATADINE] Allergy Intermediate NOSEBLEED, Verified 10/28/23 10:12 nose bleed, nose bleed,headaches amoxicillin [AMOXICILLIN] Allergy Unknown UNKNOWN Verified 10/28/23 10:12 REACTION-CHILDHOOD ALLERGY Environmental Allergy Unknown unknown Uncoded 11/06/22 10:59 Codeine Phosphate AdvReac Unknown lightheaded Uncoded 11/06/22 10:59 Exam Airway Mallampati Class: II TM Dist: >3cm Neck ROM: Full Assessment and Plan Assessment Anesthesia Assessment: Anesthesia Plan Discussed Final Anesthetic Review Family History of Problems with Anesthesia: No History of Problems with Anesthesia: No NPO: Yes ASA Class: II Final Preanesthetic Review: No Changes in Pt Med Stat, Meds/Allgs Chart Reviewed, Consent Obtained/Reviewed and Anes Risks/Benef Reviewed Patient Risk: Low Procedure Risk: Low Anesthetic Plan Anesthetic Plan: TIVA Disposition: Standard PACU
[2023-10-30 11:15] VITALS: BP 132/78; PULSE 74; RESP 18; TEMP 36.6; O2SAT 98; BMI 29.6
[2023-10-30] MEDS: Lactated Ringers 1,000 ML 100 ML IVCONT (11:24)
--- NOTE | 2023-10-30 11:52 | MHC.SHP ---
Pre-Procedural Eval Section A - 24 Hr Update-Section A only Date of Service: 10/30/23 The patient is an INPATIENT: No The patient has been examined within 24 hours of the surgical procedure. The History & Physical has been completed within 30 days and I have reviewed it.: Yes Section B - Complete if H&P > 30 days Chief Complaint: rectal bleedmgerd,fatty liver Allergies: Allergies Allergy/AdvReac Type Severity Reaction Status Date / Time codeine [CODEINE] Allergy Intermediate DIZZINESS Verified 10/28/23 10:12 loratadine [LORATADINE] Allergy Intermediate NOSEBLEED, Verified 10/28/23 10:12 nose bleed, nose bleed,headaches amoxicillin [AMOXICILLIN] Allergy Unknown UNKNOWN Verified 10/28/23 10:12 REACTION-CHILDHOOD ALLERGY Environmental Allergy Unknown unknown Uncoded 11/06/22 10:59 Codeine Phosphate AdvReac Unknown lightheaded Uncoded 11/06/22 10:59 Plan Diagnosis/Plan: Unchanged I have reviewed the history and physical and performed a pertinent physical examination on my patient. No changes have occurred unless specified. Time Spent With Patient Time: Total time managing care of this patient today ____ minutes.
--- NOTE | 2023-10-30 11:52 | W.PM.OPN ---
Operative Note Operative Note Date of Service: 10/30/23 Narrative: Operative Information Procedure Description: EGD, Colonoscopy Indication: rectal bleeding and GERD Anesthesia: MAC FLEXIBLE TRANSORAL UPPER GASTROINTESTINAL ENDOSCOPY AND COLONOSCOPY PROCEDURE NOTE UPPER ENDOSCOPY Consent: Indications for the procedure and potential complications of bleeding, perforation, reaction to medications and missed diagnosis were discussed with the patient and informed consent was obtained. Instrument: Olympus GIF H 190 J mid size upper endoscope Monitoring: Vital signs and clinical assessment, continuous EKG monitoring, Pulse oximetry, Carbon Dioxide monitoring and blood pressure monitoring were done throughout the procedure. Procedure: The patient was placed in the left lateral decubitis position and pre-procedure medications were administered and a bite block was placed. The endoscope was inserted into the mouth and advanced under direct vision to the third part of duodenum. A careful inspection was made as the upper endoscope was withdrawn including a retroflexed examination of the proximal stomach; Findings and interventions are described below. Findings: Larynx:normal Esophagus: GE junction at 38 cm, diaphragm hiatus at 38 cm, bogginess and erythema at GEJ with small streaky erosions consistent with La grade A esophagitis, bx taken from GEJ ,distal and proximal Stomach: Patchy erythema. Biopsies were obtained. Grade 2 flap valve on retroflexed examination of the cardia. LES was slightly lax. Reduced gastric movement Duodenum: Mild erythema bulb, bx taken Intervention: Biopsies as noted above COLONOSCOPY Instrument: Olympus variable stiffness pediatric scope 190L Colonoscopy Monitoring: Vital signs and clinical assessment, continuous EKG monitoring, Pulse oximetry, Carbon Dioxide monitoring and blood pressure monitoring were done throughout the procedure. Colon withdrawal time was 12 minutes. Procedure: The patient was placed in the left lateral decubitis position and pre-procedure medications were administered. After a digital rectal examination of the ano-rectum, the video colonoscope was inserted into the rectum and advanced through the colon to the cecum/TI. The colonoscope was slowly withdrawn in a retrograde panoramic fashion and the colon mucosa was carefully examined including a retroflexed view of the rectum. Findings and interventions are described below. Procedure Difficulty: easy Findings: Terminal Ileum-normal Cecum:normal Ascending Colon: normal Transverse Colon -normal Descending Colon:normal Sigmoid Colon: normal Rectum: Retroflexion with medium sized internal hemorrhoids, grade I, Semi pedunculated polyp noted 10-12 mm with eroded surface possible cloacogenic polyp, raised with eleview and removed with hot snare with one ultra clip applied. In proximal rectum 6 mm sessile polyp removed with cold snare Anorectum - normal Colon preparation: Stevenson Bowel Preparation Scale Right colon; 2 Transverse colon: 3 Left colon; 3 (0 = Unprepared colon segment with mucosa not seen due to solid stool that cannot be cleared. 1 = Portion of mucosa of the colon segment seen, but other areas of the colon segment not well seen due to staining, residual stool and/or opaque liquid. 2 = Minor amount of residual staining, small fragments of stool and/or opaque liquid, but mucosa of colon segment seen well. 3 = Entire mucosa of colon segment seen well with no residual staining, small fragments of stool or opaque liquid) Impression and Post Procedure Diagnosis: Endoscopy Findings: lax LES gastritis duodenitis erosive esophagitis possible gastroparesis Colonoscopy Findings: polyps internal hemorrhoids Plan: Await Pathology results Repeat Colonoscopy in 1-2 years due to large rectal polyp or earlier if clinically indicated High fiber diet leaflet avoid straining at stool, epsom salts and sitz bath, anusol supps or cream PPI trial Above findings were reviewed with the patient and relevant handouts were provided if indicated.
[2023-10-30 13:01] VITALS: BP 117/69; PULSE 86; RESP 16; TEMP 36.1; O2SAT 99
[2023-10-30 13:08] VITALS: O2SAT 97
[2023-10-30 13:16] VITALS: BP 110/80; PULSE 85; RESP 18; TEMP 36.3; O2SAT 96
== END 2023-10-30 14:12 | disposition home or self-care (01) ==
PROVIDERS: PCP Internal Medicine; Visit Provider Internal Medicine Gastroenterology
PROC: (CPT 43239; principal; 2023-10-30 14:40)
DX: K29.60 Other gastritis without bleeding (principal); K29.80 Duodenitis without bleeding; K22.10 Ulcer of esophagus without bleeding; K22.89 Other specified disease of esophagus; K21.9 Gastro-esophageal reflux disease without esophagitis; D12.8 Benign neoplasm of rectum; K64.0 First degree hemorrhoids; K62.5 Hemorrhage of anus and rectum; K76.0 Fatty (change of) liver, not elsewhere classified
CPT/HCPCS: 43239; 45385; 45381; 88305; 88313; 88342; J1596; J2704

== ENCOUNTER → 2023-10-30 10:45 | Outpatient (BNV) | payer OTHER, SELFPAY | PROVIDERS: PCP Internal Medicine; Visit Provider Internal Medicine Gastroenterology | DX: K21.00 Gastro-esophageal reflux disease with esophagitis, without bleeding (principal); K29.70 Gastritis, unspecified, without bleeding; K29.80 Duodenitis without bleeding; K62.5 Hemorrhage of anus and rectum; K63.5 Polyp of colon; K64.0 First degree hemorrhoids | CPT/HCPCS: 43239; 45381; 45385 ==

== ENCOUNTER 2023-10-31 08:05 | Outpatient (AMB) | payer OTHER, SELFPAY ==
--- NOTE | 2023-10-31 08:05 | A.OFFPC_ITS ---
Intake Visit Reasons: Discuss Labs~ Allergies codeine [CODEINE] Allergy (Intermediate, Verified 10/31/23 08:05) DIZZINESS loratadine [LORATADINE] Allergy (Intermediate, Verified 10/31/23 08:05) NOSEBLEED, nose bleed, nose bleed,headaches amoxicillin [AMOXICILLIN] Allergy (Unknown, Verified 10/31/23 08:05) UNKNOWN REACTION-CHILDHOOD ALLERGY Environmental Allergy (Unknown, Uncoded 11/06/22 10:59) unknown Codeine Phosphate Adverse Reaction (Unknown, Uncoded 11/06/22 10:59) lightheaded Medication List - Last Reconciled 10/31/23 by Arabella Breaux MD albuterol sulfate 90 mcg/actuation (ProAir HFA) 1 inh inhalation QID PRN 30 days esomeprazole magnesium 40 mg PO DAILY mometasone-formoterol 100-5 mcg/actuation (Dulera) 2 puffs inhalation BID 30 days ondansetron 4 mg PO Q8H PRN sodium,potassium,mag sulfates 17.5-3.13-1.6 gram (Suprep Bowel Prep Kit) DILUTE; drink 1/2 at 6-8 pm and half at 11 PM- 1AM sucralfate (Carafate) 5 mL PO QID Tobacco use date assessed: 10/22/23 Dental Screening Dental Screen Date: 10/31/23 Did you have a dental visit in the last 12 months?: Yes Did you have a dental problem in the last 6 months where you did not have access to dental care?: No Was dental information given to patient?: Patient has dentist HPI Discuss Labs~ HPI Details Patient is 63-year-old female this is a tele medicine visit She was evaluated few days ago when she came in with the complaint of feeling tired and fatigue all the time We did some labs, her hemoglobin is normal, white count is normal Kidney functions intact, sugar is fine, liver enzymes are within limits However her vitamin-D level came back at 16 I am prescribing 2000 unit of vitamin-D patient was instructed to start taking that 1 daily for at least a year. She tells me that she had a colonoscopy yesterday so far she is feeling fine Patient does verbalize that some days she feel depressed, however she is feeling fine at this time. PFSH Medical History Aneurysm Hepatic steatosis Abdominal fullness GERD (gastroesophageal reflux disease) Surgical History Hx of brain surgery Hx of colonoscopy Family History Father No problems noted. Mother No problems noted. 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 Taj Gale, Michelle Su, Dani Campa and colleagues, with an educational jarocho from [employer]. Review of Systems Const Denies chills and Denies fever(s) ENT Denies epistaxis and Denies nasal discharge Card Denies chest pain Resp Denies chest congestion, Denies cough and Denies hemoptysis GI Denies diarrhea and Denies nausea Skin/Breast Denies rash Neuro Reports no additional complaints Psych Reports no additional complaints Endo Reports no additional complaints Physical exam (Primary Care) Tobacco/Smoking Status: Tobacco use Status Tobacco use date assessed 10/22/23 10/31/23 08:05 Patient Tobacco Use Status Former Tobacco user 10/31/23 08:05 e-Cigarette/Vaping Use Never Used 10/31/23 08:05 Thrive Assessment: Date of Thrive Assessment Date Thrive assessed 02/01/23 10/31/23 08:05 Telehealth Telehealth Location of provider rendering services: practice address Location of patient: address on file Patient Identification confirmed using: Name, : Yes Telehealth method: voice only Patient verbally consented to treatment: Yes Patient verbally consented to billing insurance company: Yes Patient informed of any privacy concerns related to visit: Yes Assessment and Plan Assessment & Plan (1) Fatigue: Code(s): R53.83 - Other fatigue Qualifiers: Fatigue type: chronic, unspecified Qualified Code(s): R53.82 - Chronic fatigue, unspecified (2) Vitamin D deficiency: Code(s): E55.9 - Vitamin D deficiency, unspecified Plan Patient is 63-year-old female this is a tele medicine visit She was evaluated few days ago when she came in with the complaint of feeling tired and fatigue all the time We did some labs, her hemoglobin is normal, white count is normal Kidney functions intact, sugar is fine, liver enzymes are within limits However her vitamin-D level came back at 16 I am prescribing 2000 unit of vitamin-D patient was instructed to start taking that 1 daily for at least a year. She tells me that she had a colonoscopy yesterday so far she is feeling fine Patient does verbalize that some days she feel depressed, however she is feeling fine at this time. Medications: New cholecalciferol (vitamin D3) 50 mcg PO DAILY 90 caps 3RF Coding Level of Care Code Tele Est Pt Level 3 (25998) Diagnoses Chronic fatigue R53.82 Fatigue type: chronic, unspecified Vitamin D deficiency E55.9
== END 2023-10-31 08:31 | disposition home or self-care (01) ==
LOC: HO.HMGC 08:05
PROVIDERS: PCP Internal Medicine; Visit Provider Internal Medicine
DX: R53.82 Chronic fatigue, unspecified (principal); E55.9 Vitamin D deficiency, unspecified
CPT/HCPCS: 99213

== ENCOUNTER 2024-02-07 09:17 | Outpatient (AMB) | payer OTHER, SELFPAY ==
[2024-02-07 09:22] VITALS: BP 124/80; PULSE 78; O2SAT 97; BMI 30.3
--- NOTE | 2024-02-07 09:22 | MHC.PC.OV ---
Vital Signs 02/07/24 09:22 Height 5 ft 5 in Weight 182 lb BMI 30.3 BP 124/80 Blood Pressure Location Rt brachial Position Sitting Pulse 78 Pulse Source Pulse Oximeter Pulse Oximetry (%) 97 Oxygen Delivery Method Room Air Intake Visit Reasons: Annual PE Allergies codeine [CODEINE] Allergy (Intermediate, Verified 02/07/24 09:25) DIZZINESS loratadine [LORATADINE] Allergy (Intermediate, Verified 02/07/24 09:25) NOSEBLEED, nose bleed, nose bleed,headaches amoxicillin [AMOXICILLIN] Allergy (Unknown, Verified 02/07/24 09:25) UNKNOWN REACTION-CHILDHOOD ALLERGY Environmental Allergy (Unknown, Uncoded 11/06/22 10:59) unknown Codeine Phosphate Adverse Reaction (Unknown, Uncoded 11/06/22 10:59) lightheaded Medication List - Last Reconciled 02/07/24 by Arabella Breaux MD albuterol sulfate 90 mcg/actuation (ProAir HFA) 1 inh inhalation QID PRN 30 days cholecalciferol (vitamin D3) 50 mcg PO DAILY mometasone-formoterol 100-5 mcg/actuation (Dulera) 2 puffs inhalation BID 30 days Tobacco use date assessed: 02/07/24 Dental Screening Dental Screen Date: 02/07/24 Did you have a dental visit in the last 12 months?: Yes Did you have a dental problem in the last 6 months where you did not have access to dental care?: No Was dental information given to patient?: Patient has dentist HPI Annual PE HPI Details Patient is 63-year-old female came in today for annual physical examination Mammogram was December of this year at [place] Pap smear through OBGYN at [place] appointment in February breast exams through OBGYN Colonoscopy was 09/10/2019. Patient had colonoscopy early this year by Dr. Lou, next 1 will be in 1-2 years Patient says that the mammogram came back abnormal so she has an appointment for added views ultrasound left breast She declined breast exam today She is taking vitamin-D supplement Asthma is flaring up patient has been having cough and chest congestion for the past 2 months There is no fever no chills mild shortness a breath is there no chest pain I see that she is not taking her maintenance inhaler daily, patient was educated regarding how to take her inhalers I have also added azithromycin and prednisone 20 mg for 5 days Lab order placed to be done fasting Physical exam 1 year ON LICENSE OF [facility] Medical History Aneurysm Hepatic steatosis Abdominal fullness GERD (gastroesophageal reflux disease) Surgical History Hx of brain surgery Hx of colonoscopy Family History Father No problems noted. Mother No problems noted. 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 1. Little interest or pleasure in doing things: several days 2. Feeling down, depressed, or hopeless: not at all 3. Trouble falling or staying asleep, or sleeping too much: not at all 4. Feeling tired or having little energy: several days 5. Poor appetite or overeating: several days 6. Feeling bad about yourself - or that you are a failure or have let yourself or your family down: not at all 7. Trouble concentrating on things, such as reading the newspaper or watching television: not at all 8. Moving or speaking so slowly that other people could have noticed. Or the opposite - being so fidgety or restless that you have been moving around a lot more than usual: not at all 9. Thoughts that you would be better off or of hurting yourself in some way: not at all Total score: 3 Depression Screening Interpretation: Negative Depression Screening Done: Yes 92484 - PHQ-9 Billing: Yes Source: Developed by Drs. Taj Gale, Michelle Su, Dani Campa and colleagues, with an educational jarocho from [employer]. Thrive Questionnaire Date Thrive assessed: 03/27/23 I am a: Patient What is your living situation today?: I have a steady place to live Within the past 12 months, did the food you bought not last and you didn't have the money to get more?: Never true Within the past 12 months, did you worry whether your food would run out before you got money to buy more?: Never true Do you have trouble paying for medicines?: No Do you have trouble getting transportation to medical appointments?: No Do you have trouble paying your heating and electricity bill?: No Do you have trouble taking care of your child, family member or friend?: No Do you have trouble with day-to-day activities such as bathing, preparing meals, shopping, managing finances, etc.?: No Are you currently unemployed and looking for a job?: No Are you interested in more education?: No Please select the resources that you would like help with: None Currently or been in a relationship where the following occur: no concerns reported THRIVE Score: 0 AUDIT C Alcohol Use Questionnaire (AUDIT-C) 1. How often do you have a drink containing alcohol?: Monthly or less 2. How many drinks containing alcohol do you have on a typical day when you are drinking?: 1 or 2 3. How often do you have six or more drinks on one occasion?: Never Total Score: 1 Score Reviewed/Action Taken: Yes CASSANDRA-7 AMB Questionnaire CASSANDRA-7 Date CASSANDRA - 7 assessed: 02/07/24 Feeling nervous, anxious, or on edge: 1 = Several days Not being able to stop or control worryin = Not at all Worrying too much about different things: 1 = Several days Trouble relaxin = Several days Being so restless that it is hard to sit still: 0 = Not at all Becoming easily annoyed or irritable: 1 = Several days Feeling afraid as if something awful might happen: 1 = Several days Total CASSANDRA-7 score (0-4 normal; 5-9 mild; 10-14 moderate; 15-21 severe): 5 Source: Developed by Drs. Taj Gale, Michelle Su, Dani Campa and colleagues, with an educational jarocho from [employer] CASSANDRA-7 Assessment Billing CASSANDRA-7 Assessment Tool: CASSANDRA-7 Assessment 24853 Review of Systems Const Denies chills, Denies fever(s) and Denies headache(s) Eyes Denies blurry vision ENT Denies headache(s), Denies nasal discharge, Denies nasal obstruction, Denies odynophagia and Denies sinus pain Card Denies chest pain at rest and Denies chest pain with activity Resp Denies hemoptysis GI Denies diarrhea, Denies odynophagia, Denies vomiting and Denies hematemesis Reports as per HPI Musc Denies abnormal gait Skin/Breast Reports as per HPI Neuro Denies Neuro-related abnormal movements, Denies Abnormal speech present, Denies abnormal gait, Denies headache(s) and Denies Sensory deficit (Neuro) Psych Denies mood swings and Denies paranoia Endo Reports as per HPI Dragan/Lymph Reports as per HPI Aller/Immun Reports as per HPI Physical exam (Primary Care) Vital Signs: Last Vital Signs Pulse 78 02/07/24 09:22 BP 124/80 02/07/24 09:22 Pulse Ox 97 02/07/24 09:22 Oxygen Delivery Method Room Air 02/07/24 09:22 BMI result Body Mass Index 30.3 Tobacco/Smoking Status: Tobacco use Status Tobacco use date assessed 02/07/24 02/07/24 09:26 Patient Tobacco Use Status Former Tobacco user 02/07/24 09:26 e-Cigarette/Vaping Use Never Used 02/07/24 09:26 PHQ-9: PHQ-9 Score PHQ-9: Total score 3 02/07/24 09:53 Depression Screening Interpretation: Negative Thrive Assessment: Date of Thrive Assessment Date Thrive assessed 03/27/23 02/07/24 09:33 Currently or been in a relationship where the following occur: no concerns reported Const General: cooperative, comfortable and no acute distress Orientation/consciousness: patient oriented x3 HENMT Head: Yes normocephalic and Yes atraumatic Eyes General: appearance normal, both eyes and all related structures Pupils: Equal, round and reactive pupils present EOM: EOMs intact bilaterally Neck Neck: Yes supple and No lymphadenopathy Thyroid: Thyroid normal Lymphatic: no lymphadenopathy noted Resp Effort & Inspection: normal respiratory effort and able to speak in complete sentences Auscultation: clear to auscultation bilaterally Cardio Heart sounds: S1 normal heart sound present and S2 normal heart sound present GI Palpation (GI): Soft to palpation and nontender Auscultation: normal bowel sounds General: Yes no CVA tenderness Back/Spine/Pelvis Back: no CVA tenderness Skin General skin exam: elasticity normal and turgor normal Neuro General: patient oriented x3 and gait normal Cranial nerves: Yes Equal, round and reactive pupils present Speech: No Abnormal speech present Sensory Exam: No Sensory deficit (Neuro) Coordination: tandem gait normal and Romberg test negative Extrem General: Yes normal exam except as noted and No edema Assessment and Plan Assessment & Plan (1) Encounter for general adult medical examination with abnormal findings: Code(s): Z00.01 - Encounter for general adult medical examination with abnormal findings (2) Environmental allergies: Code(s): Z91.09 - Other allergy status, other than to drugs and biological substances (3) Hepatic steatosis: Code(s): K76.0 - Fatty (change of) liver, not elsewhere classified (4) GERD (gastroesophageal reflux disease): Code(s): K21.9 - Gastro-esophageal reflux disease without esophagitis Qualifiers: Esophagitis presence: without esophagitis Qualified Code(s): K21.9 - Gastro-esophageal reflux disease without esophagitis (5) Asthma, moderate persistent: Code(s): J45.40 - Moderate persistent asthma, uncomplicated Qualifiers: Asthma complication type: uncomplicated Qualified Code(s): J45.40 - Moderate persistent asthma, uncomplicated (6) Blocked ear: Code(s): H93.8X9 - Other specified disorders of ear, unspecified ear Qualifiers: Laterality: bilateral Qualified Code(s): H93.8X3 - Other specified disorders of ear, bilateral (7) Respiratory tract congestion with cough: Code(s): R05.8 - Other specified cough Plan Patient is 63-year-old female came in today for annual physical examination Mammogram was December of this year at [place] Pap smear through OBGYN at [place] appointment in February breast exams through OBGYN Colonoscopy was 09/10/2019. Patient had colonoscopy early this year by Dr. Lou, next 1 will be in 1-2 years Patient says that the mammogram came back abnormal so she has an appointment for added views ultrasound left breast She declined breast exam today She is taking vitamin-D supplement Asthma is flaring up patient has been having cough and chest congestion for the past 2 months There is no fever no chills mild shortness a breath is there no chest pain I see that she is not taking her maintenance inhaler daily, patient was educated regarding how to take her inhalers I have also added azithromycin and prednisone 20 mg for 5 days Lab order placed to be done fasting Physical exam 1 year Orders: Orders Vitamin D 25-OH (D2 and D3) Today H93.8X9 - Other specified disorders of ear, unspecified ear, J45.40 - Moderate persistent asthma, uncomplicated, K21.9 - Gastro-esophageal reflux disease without esophagitis, K76.0 - Fatty (change of) liver, not elsewhere classified, R05.8 - Other specified cough, Z00.01 - Encounter for general adult medical examination with abnormal findings, Z91.09 - Other allergy status, other than to drugs and biological substances Lipid Panel Today H93.8X9 - Other specified disorders of ear, unspecified ear, J45.40 - Moderate persistent asthma, uncomplicated, K21.9 - Gastro-esophageal reflux disease without esophagitis, K76.0 - Fatty (change of) liver, not elsewhere classified, R05.8 - Other specified cough, Z00.01 - Encounter for general adult medical examination with abnormal findings, Z91.09 - Other allergy status, other than to drugs and biological substances Complete Blood Count Auto Diff Today H93.8X9 - Other specified disorders of ear, unspecified ear, J45.40 - Moderate persistent asthma, uncomplicated, K21.9 - Gastro-esophageal reflux disease without esophagitis, K76.0 - Fatty (change of) liver, not elsewhere classified, R05.8 - Other specified cough, Z00.01 - Encounter for general adult medical examination with abnormal findings, Z91.09 - Other allergy status, other than to drugs and biological substances Comprehensive [place]. Panel Fast Today H93.8X9 - Other specified disorders of ear, unspecified ear, J45.40 - Moderate persistent asthma, uncomplicated, K21.9 - Gastro-esophageal reflux disease without esophagitis, K76.0 - Fatty (change of) liver, not elsewhere classified, R05.8 - Other specified cough, Z00.01 - Encounter for general adult medical examination with abnormal findings, Z91.09 - Other allergy status, other than to drugs and biological substances TSH reflex Free T4 Today H93.8X9 - Other specified disorders of ear, unspecified ear, J45.40 - Moderate persistent asthma, uncomplicated, K21.9 - Gastro-esophageal reflux disease without esophagitis, K76.0 - Fatty (change of) liver, not elsewhere classified, R05.8 - Other specified cough, Z00.01 - Encounter for general adult medical examination with abnormal findings, Z91.09 - Other allergy status, other than to drugs and biological substances Medications: New cetirizine (Zyrtec) 10 mg PO DAILY 90 tabs 1RF Allergies 90 days azithromycin Take 2 tablets today then 1 daily 250 mg PO ONCE 6 tabs 0RF 5 days J06.9 - Acute upper respiratory infection, unspecified prednisone 20 mg PO DAILY 5 tabs 0RF 5 days Coding Level of Care Code Est Pt Prev Care 40-64y(66194) Diagnoses Encounter for general adult medical examination with abnormal findings Z00.01 Environmental allergies Z91.09 Hepatic steatosis K76.0 Gastroesophageal reflux disease without esophagitis K21.9 Esophagitis presence: without esophagitis Moderate persistent asthma without complication J45.40 Asthma complication type: uncomplicated Sensation of plugged ear on both sides H93.8X3 Laterality: bilateral Respiratory tract congestion with cough R05.8 Additional Codes CASSANDRA-7 Assessment Billing - CASSANDRA-7 Assessment Tool: CASSANDRA-7 Assessment [id number] ([id number])
== END 2024-02-07 09:49 | disposition home or self-care (01) ==
PROVIDERS: PCP Internal Medicine; Visit Provider Internal Medicine
DX: Z00.01 Encounter for general adult medical examination with abnormal findings (principal); R05.8 Other specified cough; J45.40 Moderate persistent asthma, uncomplicated; Z91.09 Other allergy status, other than to drugs and biological substances; K76.0 Fatty (change of) liver, not elsewhere classified; K21.9 Gastro-esophageal reflux disease without esophagitis; H93.8X3 Other specified disorders of ear, bilateral
CPT/HCPCS: 99213; 99396

== ENCOUNTER 2024-02-08 07:51 | Outpatient (REF) | payer OTHER, SELFPAY ==
[2024-02-08 11:24] LABS: Basophils Absolute Auto 0.1 X10*3/uL (0.0-0.2); Basophils Percent Auto 0.6 % (0-2); Eosinophils Absolute Auto 0.1 X10*3/uL (0.0-0.4); Hematocrit 39.3 % (37.0-47.0); Imm Gran Abs Auto 0.04 X10*3/uL (0.00-0.03); Imm Gran Pct Auto 0.4 % (0.0-0.4); Lymphocytes Absolute Auto 3.1 X10*3/uL (1.2-4.9); Lymphocytes Percent Auto 32.8 % (20-40); MANUAL DIFF FLAG NO; Mean Corpuscular HGB Conc 33.1 g/dl (31.0-35.0); Mean Corpuscular Hemoglobin 28.2 pg (27.0-33.0); Mean Corpuscular Volume 85.2 fL (80.0-98.0); Mean Platelet Volume 10.1 fL (9.4-12.3); Monocytes Absolute Auto 0.6 X10*3/uL (0.1-1.2); Monocytes Percent Auto 6.4 % (2-11); Neutrophils Absolute Auto 5.5 x10*3/uL (2.0-8.3); Neutrophils Percent Auto 58.8 % (45-73); Platelet Count 224 X10*3/uL (160-400); Red Blood Count 4.61 X10*6/uL (4.20-5.50); White Blood Count 9.3 X10*3/uL (4.8-10.8)
[2024-02-08 12:02] LABS: Alanine Aminotransferase 16 U/L (0-31); Albumin Level 4.2 g/dL (3.5-5.0); Alkaline Phosphatase 62 U/L (39-117); Anion Gap 14 (12-20); Aspartate Amino Transferase 15 U/L (5-31); Bilirubin Total 0.4 mg/dL (0.0-1.0); Blood Urea Nitrogen 23 mg/dL (9-16); Calcium 9.5 mg/dL (8.4-10.2); Carbon Dioxide 24 mmol/L (22-29); Chloride 108 mmol/L (96-108); Cholesterol 203 mg/dL (<200); Estimated Glomerular Filt Rate > 60; Glucose Fasting 96 mg/dL (60-99); HDL Cholesterol 55 mg/dL (>40); LDL Cholesterol Calculated 135 mg/dL (<100); Sodium 142 mmol/L (135-145); Triglycerides 67 mg/dL (<150)
[2024-02-08 12:23] LABS: TSH reflex Free T4 0.59 uIU/mL (0.32-4.0)
[2024-02-13 18:03] LABS: Vitamin D 25-OH, D2 <4 ng/mL; Vitamin D 25-OH, D3 29 ng/mL; Vitamin D 25-OH, Total 29 ng/mL (30-100)
== END 2024-02-08 07:52 | disposition home or self-care (01) ==
LOC: HO.HMGCLDS 07:51
PROVIDERS: PCP Internal Medicine; Visit Provider Internal Medicine
DX: Z00.01 Encounter for general adult medical examination with abnormal findings (principal); Z91.09 Other allergy status, other than to drugs and biological substances; K76.0 Fatty (change of) liver, not elsewhere classified; K21.9 Gastro-esophageal reflux disease without esophagitis; J45.40 Moderate persistent asthma, uncomplicated; H93.8X9 Other specified disorders of ear, unspecified ear; R05.8 Other specified cough
CPT/HCPCS: 36415; 80053; 80061; 82306; 84443; 85025

== ENCOUNTER 2024-03-04 13:34 | Outpatient (AMB) | payer OTHER, SELFPAY ==
[2024-03-04 13:37] VITALS: BP 132/84; PULSE 73; O2SAT 87; BMI 30.4
--- NOTE | 2024-03-04 13:37 | MHC.PC.OV ---
Vital Signs 03/04/24 13:37 Height 5 ft 5 in Weight 183 lb BMI 30.4 BP 132/84 Blood Pressure Location Lt brachial Position Sitting Pulse 73 Pulse Source Pulse Oximeter Pulse Oximetry (%) 87 L Oxygen Delivery Method Room Air Intake Visit Reasons: Clicking noise in ear Allergies codeine [CODEINE] Allergy (Intermediate, Verified 03/04/24 13:37) DIZZINESS loratadine [LORATADINE] Allergy (Intermediate, Verified 03/04/24 13:37) NOSEBLEED, nose bleed, nose bleed,headaches amoxicillin [AMOXICILLIN] Allergy (Unknown, Verified 03/04/24 13:37) UNKNOWN REACTION-CHILDHOOD ALLERGY Environmental Allergy (Unknown, Uncoded 03/04/24 13:37) unknown Codeine Phosphate Adverse Reaction (Unknown, Uncoded 03/04/24 13:37) lightheaded Medication List - Last Reconciled 03/04/24 by Arabella Breaux MD albuterol sulfate 90 mcg/actuation (ProAir HFA) 1 inh inhalation QID PRN 30 days azithromycin 250 mg PO ONCE 5 days budesonide-formoterol 160-4.5 mcg/actuation (Symbicort) 2 puffs inhalation BID 30 days cetirizine (Zyrtec) 10 mg PO DAILY 90 days cholecalciferol (vitamin D3) 50 mcg PO DAILY prednisone 20 mg PO DAILY 5 days Tobacco use date assessed: 03/04/24 Dental Screening Dental Screen Date: 02/07/24 HPI Clicking noise in ear HPI Details Patient is a 63-year-old female came in today to be evaluated for her ongoing symptoms However they are much better than before. She no longer have congested cough, asthma is better Only has slight dry cough if she laughs or talk too much. Continued to have slight pressure behind her head and in ears On examination her ears are within normal limit All sinuses are nontender. She does not have any blurring of vision or headache Patient has been doing her own online search and is worried about hydrocephalus. Explained to her that hydrocephalus causes headache and blurring of vision and she has none of that Also her symptoms are getting better and are now 80% better than when she initially was evaluated She is currently taking maintenance inhaler for asthma Zyrtec for allergies She tells me that Benadryl works better I am adding montelukast she is to start taking that in the morning and Zyrtec at night I have also sent prednisone 10 mg once a day for 10 days We will book a telemedicine visit in 2 weeks to re-evaluate. [facility] Medical History Aneurysm Hepatic steatosis Abdominal fullness GERD (gastroesophageal reflux disease) Surgical History Hx of brain surgery Hx of colonoscopy Family History Father No problems noted. Mother No problems noted. 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 How often do you have a drink containing alcohol?: Monthly or less 2. How many drinks containing alcohol do you have on a typical day when you are drinking?: 1 or 2 3. How often do you have six or more drinks on one occasion?: Never Total Score: 1 CASSANDRA-7 AMB Questionnaire CASSANDRA-7 Date CASSANDRA - 7 assessed: 02/07/24 Source: Developed by Drs. Taj Gale, Michelle Su, Dani Campa and colleagues, with an educational jarocho from [employer]. Review of Systems Const Denies chills and Denies fever(s) ENT Denies epistaxis and Denies nasal discharge Card Denies chest pain Resp Denies chest congestion and Denies hemoptysis GI Denies diarrhea and Denies nausea Skin/Breast Denies rash Neuro Reports no additional complaints Psych Reports no additional complaints Endo Reports no additional complaints Physical exam (Primary Care) Vital Signs: Last Vital Signs Pulse 73 03/04/24 13:37 BP 132/84 03/04/24 13:37 Pulse Ox 87 L 03/04/24 13:37 Oxygen Delivery Method Room Air 03/04/24 13:37 BMI result Body Mass Index 30.4 Tobacco/Smoking Status: Tobacco use Status Tobacco use date assessed 03/04/24 03/04/24 13:42 Patient Tobacco Use Status Former Tobacco user 03/04/24 13:42 e-Cigarette/Vaping Use Never Used 03/04/24 13:42 Thrive Assessment: Date of Thrive Assessment Date Thrive assessed 03/27/23 03/04/24 13:42 Const General: cooperative, comfortable and no acute distress Orientation/consciousness: patient oriented x3 HENMT Other: Both ear exam within normal limit, also sinuses nontender, Head: Yes normocephalic Eyes Other: Pupils equal and reactive to light, no photophobia General: appearance normal, both eyes and all related structures Neck Neck: Yes supple Resp Effort & Inspection: normal respiratory effort, no cough and no stridor Cardio Rhythm: regular rhythm Heart sounds: S1 normal heart sound present and S2 normal heart sound present Skin General skin exam: turgor normal Neuro General: patient oriented x3, tone normal and moves all extremities Extrem Right lower extremity: no edema Left lower extremity: no edema Assessment and Plan Assessment & Plan (1) Asthma, moderate persistent: Code(s): J45.40 - Moderate persistent asthma, uncomplicated Qualifiers: Asthma complication type: uncomplicated Qualified Code(s): J45.40 - Moderate persistent asthma, uncomplicated (2) Environmental allergies: Code(s): Z91.09 - Other allergy status, other than to drugs and biological substances Plan Patient is a 63-year-old female came in today to be evaluated for her ongoing symptoms However they are much better than before. She no longer have congested cough, asthma is better Only has slight dry cough if she laughs or talk too much. Continued to have slight pressure behind her head and in ears On examination her ears are within normal limit All sinuses are nontender. She does not have any blurring of vision or headache Patient has been doing her own online search and is worried about hydrocephalus. Explained to her that hydrocephalus causes headache and blurring of vision and she has none of that Also her symptoms are getting better and are now 80% better than when she initially was evaluated She is currently taking maintenance inhaler for asthma Zyrtec for allergies She tells me that Benadryl works better I am adding montelukast she is to start taking that in the morning and Zyrtec at night I have also sent prednisone 10 mg once a day for 10 days We will book a telemedicine visit in 2 weeks to re-evaluate. Medications: New montelukast 10 mg PO .Q a.m. 30 tabs 0RF Changed From prednisone 20 mg PO DAILY 5 days 5 tabs 0RF To prednisone 10 mg PO DAILY 10 tabs 0RF 10 days Coding Level of Care Code Est Pt Level 3 (41210) Diagnoses Moderate persistent asthma without complication J45.40 Asthma complication type: uncomplicated Environmental allergies Z91.09
== END 2024-03-04 14:36 | disposition home or self-care (01) ==
PROVIDERS: PCP Internal Medicine; Visit Provider Internal Medicine
DX: J45.40 Moderate persistent asthma, uncomplicated (principal); Z91.09 Other allergy status, other than to drugs and biological substances
CPT/HCPCS: 99213

== ENCOUNTER 2024-03-19 08:20 | Outpatient (AMB) | payer OTHER, SELFPAY ==
--- NOTE | 2024-03-19 08:44 | MHC.PC.OV ---
Intake Visit Reasons: 2Wk F/u~ [phone] Allergies codeine [CODEINE] Allergy (Intermediate, Verified 03/19/24 08:45) DIZZINESS loratadine [LORATADINE] Allergy (Intermediate, Verified 03/19/24 08:45) NOSEBLEED, nose bleed, nose bleed,headaches amoxicillin [AMOXICILLIN] Allergy (Unknown, Verified 03/19/24 08:45) UNKNOWN REACTION-CHILDHOOD ALLERGY Environmental Allergy (Unknown, Uncoded 03/19/24 08:45) unknown Codeine Phosphate Adverse Reaction (Unknown, Uncoded 03/19/24 08:45) lightheaded Medication List - Last Reconciled 03/19/24 by Arabella Breaux MD albuterol sulfate 90 mcg/actuation (ProAir HFA) 1 inh inhalation QID PRN 30 days budesonide-formoterol 160-4.5 mcg/actuation (Symbicort) 2 puffs inhalation BID 30 days cetirizine (Zyrtec) 10 mg PO DAILY 90 days cholecalciferol (vitamin D3) 50 mcg PO DAILY montelukast 10 mg PO .Q a.m. Tobacco use date assessed: 03/04/24 Dental Screening Dental Screen Date: 02/07/24 HPI 2Wk F/u~ [phone] HPI Details This is a telemedicine video conference Patient says that she is feeling much better compared to last time Now she is taking Zyrtec and montelukast. However patient says that she still feels pressure on top of her head and she is worried Because she has a history of brain aneurysm and had surgery 6 years ago in [place]. Patient says that she was feeling like that at that time as well. She does not have any neurological symptoms I am booking appointment with the Neurology for consultation Meanwhile I am also ordering MRA for the patient [facility] Medical History Aneurysm Hepatic steatosis Abdominal fullness GERD (gastroesophageal reflux disease) Surgical History Hx of brain surgery Hx of colonoscopy Family History Father No problems noted. Mother No problems noted. Social History Household Members: None Housing: Condominium Alcohol intake: current Alcohol intake frequency: does not drink Patient Tobacco Use Status: Former Tobacco user e-Cigarette/Vaping Use: Never Used service: No Current occupational status: employed Current occupation: [employer] Cognitive needs: No Hearing needs: No Vision needs: No Questionnaire Thrive Questionnaire Date Thrive assessed: 03/27/23 CASSANDRA-7 AMB Questionnaire CASSANDRA-7 Date CASSANDRA - 7 assessed: 02/07/24 Source: Developed by Drs. Taj Gale, Michelle Su, Dani Campa and colleagues, with an educational jarocho from [employer]. Review of Systems Const Denies chills and Denies fever(s) ENT Denies epistaxis and Denies nasal discharge Card Denies chest pain Resp Denies chest congestion, Denies cough and Denies hemoptysis GI Denies diarrhea and Denies nausea Skin/Breast Denies rash Neuro Reports no additional complaints Psych Reports no additional complaints Endo Reports no additional complaints Physical exam (Primary Care) Tobacco/Smoking Status: Tobacco use Status Tobacco use date assessed 03/04/24 03/19/24 08:46 Patient Tobacco Use Status Former Tobacco user 03/19/24 08:46 e-Cigarette/Vaping Use Never Used 03/19/24 08:46 Thrive Assessment: Date of Thrive Assessment Date Thrive assessed 03/27/23 03/19/24 08:46 Telehealth Telehealth Telehealth Platform: [facility] Location of provider rendering services: practice address Location of patient: address on file Patient Identification confirmed using: Name, : Yes Telehealth method: video Patient verbally consented to treatment: Yes Patient verbally consented to billing insurance company: Yes Patient informed of any privacy concerns related to visit: Yes Assessment and Plan Assessment & Plan (1) Pressure in head: Code(s): R51.9 - Headache, unspecified (2) Brain aneurysm: Code(s): I67.1 - Cerebral aneurysm, nonruptured (3) Asthma, moderate persistent: Code(s): J45.40 - Moderate persistent asthma, uncomplicated Qualifiers: Asthma complication type: uncomplicated Qualified Code(s): J45.40 - Moderate persistent asthma, uncomplicated (4) Environmental allergies: Code(s): Z91.09 - Other allergy status, other than to drugs and biological substances Plan This is a telemedicine video conference Patient says that she is feeling much better compared to last time Now she is taking Zyrtec and montelukast. However patient says that she still feels pressure on top of her head and she is worried Because she has a history of brain aneurysm and had surgery 6 years ago in [place]. Patient says that she was feeling like that at that time as well. She does not have any neurological symptoms I am booking appointment with the Neurology for consultation Meanwhile I am also ordering MRA for the patient Total time spent 30 minute including [id number] with the patient, reviewing chart Going over medications, complaining note and coordination of care Orders: Orders MR angio head wo/w con Today I67.1 - Cerebral aneurysm, nonruptured, R51.9 - Headache, unspecified Referrals Neurology Referral I67.1 - Cerebral aneurysm, nonruptured, R51.9 - Headache, unspecified Coding Level of Care Code Tele Est Pt Level 4 (31377) Diagnoses Pressure in head R51.9 Brain aneurysm I67.1 Moderate persistent asthma without complication J45.40 Asthma complication type: uncomplicated Environmental allergies Z91.09
== END 2024-03-19 11:28 | disposition home or self-care (01) ==
LOC: HO.HMGC 08:20
PROVIDERS: PCP Internal Medicine; Visit Provider Internal Medicine
DX: R51.9 Headache, unspecified (principal); I67.1 Cerebral aneurysm, nonruptured; J45.40 Moderate persistent asthma, uncomplicated; Z91.09 Other allergy status, other than to drugs and biological substances
CPT/HCPCS: 99214

== ENCOUNTER 2024-04-25 13:22 | Outpatient (REF) | payer OTHER, SELFPAY ==
[2024-04-25 15:40] LABS: Anion Gap 12 (12-20); Blood Urea Nitrogen 17 mg/dL (9-16); Calcium 9.8 mg/dL (8.4-10.2); Carbon Dioxide 27 mmol/L (22-29); Chloride 107 mmol/L (96-108); Estimated Glomerular Filt Rate > 60; Glucose Random 76 mg/dL (60-115); Potassium 3.8 mmol/L (3.3-5.1); Sodium 142 mmol/L (135-145)
== END 2024-04-25 13:23 | disposition home or self-care (01) ==
LOC: HO.HMGCLDS 13:22
PROVIDERS: PCP Internal Medicine; Visit Provider Internal Medicine
DX: I67.1 Cerebral aneurysm, nonruptured (principal)
CPT/HCPCS: 36415; 80048

== ENCOUNTER 2024-05-11 09:13 | Outpatient (REF) | payer OTHER, SELFPAY ==
--- NOTE | ~2024-05-11 | CT_ITS ---
EXAMINATION: CT ANGIOGRAM BRAIN, HEAD CLINICAL INFORMATION: Cerebral aneurysm COMPARISON: CTA head on 04/11/2018 TECHNIQUE: Test bolus sequences followed by intravenous administration of 75 mL of Omnipaque 350 intravenous contrast. Helical imaging was performed in the axial plane from the skull base to the vertex. Delayed postcontrast imaging of the head was also performed. The data was processed at the diagnostic technologist workstation for generation of MIP sequences. Three-dimensional volume rendered reformatted images were also generated at an offline 3-D workstation. The degree of stenosis determined by NASCET criteria. This CT examination was performed using dose optimization techniques as appropriate, variously including the following: *Automated exposure control *Adjustment of mA and/or kV according to patient size (this includes techniques or standardized protocols for targeted exams where dose is matched to indication/reason for exam; i.e. extremities or head) *Use of iterative reconstruction technique DLP: 1881 mGy-cm FINDINGS: BRAIN: No acute intracranial hemorrhage or infarct. The martinez-white matter differentiation is preserved. No midline shift or hydrocephalus. No acute extra-axial fluid collections. The osseous structures are unremarkable. No orbital pathology. Mucous retention cyst left maxillary and right sphenoid sinuses. The mastoid air cells are clear. Sequela of aneurysm repair in the region of the distal left supraclinoid ICA. CTA HEAD: Anterior circulation: The petrous, cavernous, and supraclinoid segments of the internal carotid arteries are patent bilaterally. Sacroiliac aneurysm repair in the region of the distal left supraclinoid ICA. No definite evidence of residual aneurysmal sac. The major branches of the anterior and middle cerebral arteries as well as the anterior communicating artery complex are patent. No other saccular aneurysm. No large vessel occlusion or dissection. Posterior circulation: The intracranial vertebral arteries are patent bilaterally. Basilar artery is normal in course and caliber. The posterior cerebral and superior cerebellar arteries arise normally from the basilar sonogram. No aneurysm. On delayed imaging, the venous structures demonstrate normal contrast opacification. No filling defects. No abnormal intraparenchymal enhancement. CT/CT angio head IMPRESSION: Status post left supraclinoid ICA aneurysm repair. No definite evidence of residual aneurysmal sac. No large vessel occlusion. No acute intracranial hemorrhage or infarct. Electronically signed by: Joey Miller MD 05/30/2024 06:27 PM EDT
[2024-05-11] MEDS: iohexoL 350 MG/ML 100 ML INFUS..BTL 75 ML IV (10:21)
== END 2024-05-11 09:14 | disposition home or self-care (01) ==
LOC: HO.CT 09:13
PROVIDERS: PCP Internal Medicine; Visit Provider Internal Medicine
DX: I67.1 Cerebral aneurysm, nonruptured (principal); R51.9 Headache, unspecified
CPT/HCPCS: 70496; Q9967

== ENCOUNTER 2024-09-28 11:30 | Outpatient (REF) | payer OTHER, SELFPAY ==
[2024-09-28 17:45] LABS: Influenza A PCR NEGATIVE (Negative); Influenza B PCR NEGATIVE (Negative); Resp Syncy Virus RNA Qual PCR NEGATIVE (Negative); SARS COV2 PCR INHOUSE NEGATIVE (Negative)
== END 2024-09-28 11:31 | disposition home or self-care (01) ==
LOC: HO.LAB 11:30
PROVIDERS: Physician Assistant; PCP Internal Medicine
DX: J06.9 Acute upper respiratory infection, unspecified (principal); H66.001 Acute suppurative otitis media without spontaneous rupture of ear drum, right ear
CPT/HCPCS: 0241U; 99212

== ENCOUNTER 2024-09-28 11:30 | Outpatient (AMB) | payer OTHER, SELFPAY ==
--- NOTE | 2024-09-28 13:10 | AM.OFFWIN_ITS ---
Intake Vital Signs 09/28/24 13:11 Weight 187 lb BP 140/90 H Blood Pressure Location Lt brachial Position Sitting Pulse 80 Pulse Source Pulse Oximeter Temp 98.2 F Temp Source Oral Pulse Oximetry (%) 98 Oxygen Delivery Method Room Air Intake Visit Reasons: EP mucus, cough, dizziness Intake Note: Patient here for cough, mucus that has been present for about 2 weeks and dizziness that started last night. Patient Tobacco Use Status: Former Tobacco user Allergies codeine [CODEINE] Allergy (Intermediate, Verified 09/28/24 13:12) DIZZINESS loratadine [LORATADINE] Allergy (Intermediate, Verified 09/28/24 13:12) NOSEBLEED, nose bleed, nose bleed,headaches amoxicillin [AMOXICILLIN] Allergy (Unknown, Verified 09/28/24 13:12) UNKNOWN REACTION-CHILDHOOD ALLERGY Environmental Allergy (Unknown, Uncoded 09/28/24 13:12) unknown Codeine Phosphate Adverse Reaction (Unknown, Uncoded 09/28/24 13:12) lightheaded Do you need a note to return to daycare/school/sports/work: No HPI HPI Comments History of Present Illness Details History - The patient is a 63-year-old female pr esenting with a persistent cough and dizziness increased over the past two weeks. Her cough is recurring annually and treated previously with azithromycin, but there is no formal asthma diagnosis. The patient describes the mucus as grayish. She has experienced one episode of dizziness without a loss of consciousness or balance issues. No fever was recorded. Her medical history is significant for brain aneurysm surgery. She denies any ear or sinus discomfort, although she has feelings of congestion without significant ear pain and had a self-administered negative COVID-19 test. Physical Exam General: Cooperative, healthy appearing, comfortable and no acute distress Orientation/consciousness: Patient oriented x3 Limitations: No limitations Head: Normal to inspection Ears: Hearing grossly normal bilaterally, external ears normal. Fluid present in both ears, right TM has bulging, erythema and small purulent effusion. Nose: Normal external nose present, Normal nares present and No nasal discharge present Face and sinus: Normal facial exam and Yes sinuses nontender Mouth: Normal oral and palatal mucosa present and moist mucous membranes Throat: Yes tonsils normal, Yes uvula midline. Posterior oropharynx erythema Eyes: Appearance normal, both eyes and all related structures Neck: Normal visual inspection Respiratory: Clear to auscultation bilaterally. Normal respiratory effort, able to speak in complete sentences, Actively coughing, no respiratory distress, not tachypneic, no tripod positioning and no use of accessory muscles Cardiovascular: Regular rate and rhythm. Normal S1 and S2 Skin: No rashes or lesions noted Neuro: Patient oriented x3 Extremities: Normal to inspection and Yes no clubbing, cyanosis or edema PFSH Medical History Aneurysm Hepatic steatosis Abdominal fullness GERD (gastroesophageal reflux disease) Surgical History Hx of brain surgery Hx of colonoscopy Family History Father No problems noted. Mother No problems noted. 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 With documented fluid in either ear, likely indicating otitis media, azithromycin Z-Cesar will be provided to address the presumptive bacterial cause of her cough, considering past allergies to Augmentin. Tessalon Perles are advised to alleviate the cough, particularly during the night, and the patient is advised to use Mucinex during the day. Reassessment will occur via her primary care provider unless symptoms necessitate earlier evaluation. Patient was informed and verbally consented to the use of an ambient scribe for clinic note documentation during this visit (2) Otitis media: Code(s): H66.90 - Otitis media, unspecified, unspecified ear Qualifiers: Chronicity: acute Laterality: right Otitis media type: suppurative Recurrence: non-recurrent Spontaneous tympanic membrane rupture: without spontaneous rupture Qualified Code(s): H66.001 - Acute suppurative otitis media without spontaneous rupture of ear drum, right ear Plan: as above Orders: Orders SARS-CoV2/FLU/RSV Today J06.9 - Acute upper respiratory infection, unspecified Medications: New azithromycin For 250 mg dose pack: take 500 mg today (day 1), then 250 mg for 4 days (days 2-5) PO 6 tabs 0RF benzonatate 200 mg PO TID PRN 14 caps 0RF cough Coding Level of Care Code Est Pt Level 4 (92185) Diagnoses URI, acute J06.9 Non-recurrent acute suppurative otitis media of right ear without spontaneous rupture of tympanic membrane H66.001 Chronicity: acute Laterality: right Otitis media type: suppurative Recurrence: non-recurrent Spontaneous tympanic membrane rupture: without spontaneous rupture
[2024-09-28 13:11] VITALS: BP 140/90; PULSE 80; TEMP 36.8; O2SAT 98
== END 2024-09-28 13:53 | disposition home or self-care (01) ==
PROVIDERS: PCP Internal Medicine; Visit Provider Physician Assistant
DX: J06.9 Acute upper respiratory infection, unspecified (principal); H66.001 Acute suppurative otitis media without spontaneous rupture of ear drum, right ear

== ENCOUNTER 2024-10-08 08:25 | Outpatient (AMB) | payer OTHER, SELFPAY ==
--- NOTE | 2024-10-08 09:01 | A.OFFPC_ITS ---
Intake Visit Reasons: Brain Aneurysm Allergies codeine [CODEINE] Allergy (Intermediate, Verified 10/08/24 09:01) DIZZINESS loratadine [LORATADINE] Allergy (Intermediate, Verified 10/08/24 09:01) NOSEBLEED, nose bleed, nose bleed,headaches amoxicillin [AMOXICILLIN] Allergy (Unknown, Verified 10/08/24 09:01) UNKNOWN REACTION-CHILDHOOD ALLERGY Environmental Allergy (Unknown, Uncoded 09/28/24 13:12) unknown Codeine Phosphate Adverse Reaction (Unknown, Uncoded 09/28/24 13:12) lightheaded Medication List - Last Reconciled 10/08/24 by Arabella Breaux MD albuterol sulfate 90 mcg/actuation (ProAir HFA) 1 inh inhalation QID PRN 30 days budesonide-formoterol 160-4.5 mcg/actuation (Symbicort) 2 puffs inhalation BID 30 days cetirizine (Zyrtec) 10 mg PO DAILY 90 days cholecalciferol (vitamin D3) 50 mcg PO DAILY montelukast 10 mg PO .Q a.m. Tobacco use date assessed: 10/08/24 Dental Screening Dental Screen Date: 10/08/24 Did you have a dental visit in the last 12 months?: Yes Did you have a dental problem in the last 6 months where you did not have access to dental care?: No Was dental information given to patient?: Patient has dentist HPI Brain Aneurysm HPI Details - The patient is a 63-year-old female pr esenting with concerns related to neurological symptoms - Brain Aneurysm: History of a brain ane urysm previously coiled; recent episode of waking at 3:30 AM with shooting pain in the head that spread throughout the body, followed by sweating. Recent CTA (April) showed no new aneurysms. Patient is worried about recurrence despite reassurance. - Cough with Mucous Production: Reports coughing with mucous production; visited a walk-in clinic on July 29, 2023, received azithromycin and cough medication. Improvement noted but still experiencing mucous. Problem List - Brain Aneurysm (previously coiled) - Cough with mucous production - history of asthma Patient Instructions - Continue using Simbacort as prescribed and do not stop the inhaler. - Monitor symptoms; if experiencing wors ening respiratory symptoms or shortness of breath, follow up promptly. - Attend the upcoming appointment with Mansi Breaux to discuss neurological concerns further. PFSH Medical History Aneurysm Hepatic steatosis Abdominal fullness GERD (gastroesophageal reflux disease) Surgical History Hx of brain surgery Hx of colonoscopy Family History Father No problems noted. Mother No problems noted. Social History Household Members: None Housing: Condominium Alcohol intake: current Alcohol intake frequency: does not drink Patient Tobacco Use Status: Former Tobacco user e-Cigarette/Vaping Use: Never Used service: No Current occupational status: employed Current occupation: [employer] Cognitive needs: No Hearing needs: No Vision needs: No Questionnaire PHQ-9 Over the last 2 weeks, how often have you been bothered by any of the following problems? 1. Little interest or pleasure in doing things: several days 2. Feeling down, depressed, or hopeless: not at all 3. Trouble falling or staying asleep, or sleeping too much: not at all 4. Feeling tired or having little energy: several days 5. Poor appetite or overeating: several days 6. Feeling bad about yourself - or that you are a failure or have let yourself or your family down: not at all 7. Trouble concentrating on things, such as reading the newspaper or watching television: not at all 8. Moving or speaking so slowly that other people could have noticed. Or the opposite - being so fidgety or restless that you have been moving around a lot more than usual: not at all 9. Thoughts that you would be better off or of hurting yourself in some way: not at all Total score: 3 Depression Screening Interpretation: Negative Depression Screening Done: Yes 40280 - PHQ-9 Billing: Yes Source: Developed by Drs. Taj Gale, Michelle Su, Dani Campa and colleagues, with an educational jarocho from [employer]. Thrive Questionnaire Date Thrive assessed: 10/08/24 I am a: Patient What is your living situation today?: I have a steady place to live Within the past 12 months, did the food you bought not last and you didn't have the money to get more?: Never true Within the past 12 months, did you worry whether your food would run out before you got money to buy more?: Never true Do you have trouble paying for medicines?: No Do you have trouble getting transportation to medical appointments?: No Do you have trouble paying your heating and electricity bill?: No Do you have trouble taking care of your child, family member or friend?: No Do you have trouble with day-to-day activities such as bathing, preparing meals, shopping, managing finances, etc.?: No Are you currently unemployed and looking for a job?: No Are you interested in more education?: No Please select the resources that you would like help with: None Currently or been in a relationship where the following occur: No concerns reported THRIVE Score: 0 AUDIT C Alcohol Use Questionnaire (AUDIT-C) 1. How often do you have a drink containing alcohol?: Never 3. How often do you have six or more drinks on one occasion?: Never Total Score: 0 Score Reviewed/Action Taken: Yes CASSANDRA-7 AMB Questionnaire CASSANDRA-7 Date CASSANDRA - 7 assessed: 10/08/24 Feeling nervous, anxious, or on edge: 0 = Not at all Not being able to stop or control worryin = Not at all Worrying too much about different things: 0 = Not at all Trouble relaxin = Not at all Being so restless that it is hard to sit still: 0 = Not at all Becoming easily annoyed or irritable: 0 = Not at all Feeling afraid as if something awful might happen: 0 = Not at all Total CASSANDRA-7 score (0-4 normal; 5-9 mild; 10-14 moderate; 15-21 severe): 0 Source: Developed by Drs. Taj Gale, Michelle Su, Dani Campa and colleagues, with an educational jarocho from [employer]. CASSANDRA-7 Assessment Billing CASSANDRA-7 Assessment Tool: CASSANDRA-7 Assessment 51552 Review of Systems Const Denies chills and Denies fever(s) ENT Denies epistaxis and Denies nasal discharge Card Denies chest pain Resp Denies chest congestion, Denies cough and Denies hemoptysis GI Denies diarrhea and Denies nausea Skin/Breast Denies rash Neuro Reports no additional complaints Psych Reports no additional complaints Endo Reports no additional complaints Physical exam (Primary Care) Tobacco/Smoking Status: Tobacco use Status Tobacco use date assessed 10/08/24 10/08/24 09:04 Patient Tobacco Use Status Former Tobacco user 10/08/24 09:04 e-Cigarette/Vaping Use Never Used 10/08/24 09:04 PHQ-9: PHQ-9 Score PHQ-9: Total score 3 10/09/24 08:01 Depression Screening Interpretation: Negative Thrive Assessment: Date of Thrive Assessment Date Thrive assessed 10/08/24 10/08/24 09:04 Currently or been in a relationship where the following occur: No concerns reported Telehealth Telehealth Telehealth Platform: [employer] Location of provider rendering services: practice address Location of patient: address on file Patient Identification confirmed using: Name, : Yes Telehealth method: voice only Patient verbally consented to treatment: Yes Patient verbally consented to billing insurance company: Yes Patient informed of any privacy concerns related to visit: Yes Minutes spent on Phone/Video with Pt.: 16 Coding Level of Care Code Tele Est Pt Level 3 (62386) Diagnoses Brain aneurysm I67.1 Dizziness R42 URI with cough and congestion J06.9 Moderate persistent asthma without complication J45.40 Asthma complication type: uncomplicated Additional Codes CASSANDRA-7 Assessment Billing - CASSANDRA-7 Assessment Tool: CASSANDRA-7 Assessment 75561 ([id number]) PHQ-9 - 05419 - PHQ-9 Billing: Yes ([id number]) Assessment & Plan Assessment & Plan (1) Brain aneurysm: Code(s): I67.1 - Cerebral aneurysm, nonruptured Category: Medical (2) Dizziness: Code(s): R42 - Dizziness and giddiness Category: Medical (3) URI with cough and congestion: Code(s): J06.9 - Acute upper respiratory infection, unspecified Category: Medical (4) Asthma, moderate persistent: Code(s): J45.40 - Moderate persistent asthma, uncomplicated Category: Medical Qualifiers: Asthma complication type: uncomplicated Qualified Code(s): J45.40 - Moderate persistent asthma, uncomplicated Plan - The patient is a 63-year-old female presenting with concerns related to neurological symptoms - Brain Aneurysm: History of a brain aneurysm previously coiled; recent episode of waking at 3:30 AM with shooting pain in the head that spread throughout the body, followed by sweating. Recent CTA (April) showed no new aneurysms. Patient is worried about recurrence despite reassurance. - Cough with Mucous Production: Reports coughing with mucous production; visited a walk-in clinic on July 29, 2023, received azithromycin and cough medication. Improvement noted but still experiencing mucous. Problem List - Brain Aneurysm (previously coiled) - Cough with mucous production - history of asthma Patient Instructions - Continue using Simbacort as prescribed and do not stop the inhaler. - Monitor symptoms; if experiencing worsening respiratory symptoms or shortness of breath, follow up promptly. - Attend the upcoming appointment with Dr. Breaux to discuss neurological concerns further. Orders: Referrals Neurology Referral I67.1 - Cerebral aneurysm, nonruptured, R42 - Dizziness and giddiness
== END 2024-10-08 09:48 | disposition home or self-care (01) ==
LOC: HO.HMCC 08:25
PROVIDERS: PCP Internal Medicine; Visit Provider Internal Medicine
DX: R42 Dizziness and giddiness (principal); I67.1 Cerebral aneurysm, nonruptured; J06.9 Acute upper respiratory infection, unspecified; J45.40 Moderate persistent asthma, uncomplicated

== ENCOUNTER → 2024-10-08 08:25 | Outpatient (BNVA) | payer OTHER, SELFPAY | PROVIDERS: PCP Internal Medicine; Visit Provider Internal Medicine | DX: I67.1 Cerebral aneurysm, nonruptured (principal); R42 Dizziness and giddiness; J06.9 Acute upper respiratory infection, unspecified; J45.40 Moderate persistent asthma, uncomplicated | CPT/HCPCS: 96127 ==

== ENCOUNTER 2025-02-09 10:17 | Outpatient (REF) | payer OTHER, SELFPAY ==
--- OUTSIDE RECORDS SUMMARY | 2025-02-09 11:58 | XMS_ITS | Clinical Summary ---
Author Organization [facility] [address] [place] [address] [address] [place], [place] Phone Care Team Providers Care Cloth Desizing Range Operator Chief Name Role Phone Arabella Breaux MD Primary Care Provider [phone] Encounters Date Type Department Care Team Description 01/21/2025 10:34 AM EDT - 01/21/2025 11:59 PM EDT Hospital Encounter Radiology Department [address] [phone] Encounter for screening mammogram for breast cancer Discharge Disposition: Home or Self Care from Last 3 Months Surgical History Surgery Date Site/Laterality Comments BREAST SURGERY 2009 Right PROCEDURE: DE UNLISTED PROCEDURE BREAST; COMMENT: b9 APPENDECTOMY PROCEDURE: HISTORICAL APPENDECTOMY BREAST BIOPSY 2009 Right PROCEDURE: BX BREAST; PERC NEEDLE CORE W/IMAG GUID; COMMENT: b9 OTHER SURGICAL HISTORY 06/2018 PROCEDURE: ---- OTHER ----; COMMENT: post brain aneurysm clip Medical History Medical History Date Comments Aneurysm ([facility]/HCC V24) 01/12/2019 DX:Aneury sm ([facility]) Family History Medical History Relation Name Comments [...] is recommended in 1 year. Mammo Location: [facility], [address] [place] [address], [id number], . -------- FINAL REPORT -------- Dictated By: Tessa Morel Dictated Date: 01/21/2025 14:51 ET Assigned Physician: Tessa Morel Reviewed and Electronically Signed By: Tessa Morel Signed Date: 01/21/2025 14:55 ET Workstation ID: [id number] Transcribed By: Self Edit Transcribed Date: 01/21/2025 [...] is recommended in 1 year. Mammo Location: [facility], [address] [place] [address], [id number], . -------- FINAL REPORT -------- Dictated By: Tessa Morel Dictated Date: 01/21/2025 14:51 ET Assigned Physician: Tessa Morel Reviewed and Electronically Signed By: Tessa Morel Signed Date: 01/21/2025 14:55 ET Workstation ID: [id number] Transcribed By: Self Edit Transcribed Date: 01/21/2025 14:51 ET us Arabella Breaux MD IMG BI PROCEDURES Final Result from Last 3 Months Insurance [facility] Care Teams Cloth Desizing Range Operator Chief Relationship Specialty Start Date End Date Arabella Breaux MD [address] [place] [phone] PCP - General 09/23/10
[2025-02-09 13:08] LABS: MANUAL DIFF FLAG NO
[2025-02-09 13:22] LABS: Basophils Absolute Auto 0.1 X10*3/uL (0.0-0.2); Basophils Percent Auto 1.1 % (0-2); Eosinophils Absolute Auto 0.3 X10*3/uL (0.0-0.4); Eosinophils Percent Auto 4.8 % (0-4); Hematocrit 40.7 % (37.0-47.0); Hemoglobin 13.5 g/dl (12.0-16.0); Imm Gran Abs Auto 0.01 X10*3/uL (0.00-0.03); Imm Gran Pct Auto 0.1 % (0.0-0.4); Lymphocytes Absolute Auto 2.4 X10*3/uL (1.2-4.9); Lymphocytes Percent Auto 33.1 % (20-40); Mean Corpuscular HGB Conc 33.2 g/dl (31.0-35.0); Mean Corpuscular Hemoglobin 27.7 pg (27.0-33.0); Mean Corpuscular Volume 83.6 fL (80.0-98.0); Mean Platelet Volume 10.2 fL (9.4-12.3); Monocytes Absolute Auto 0.6 X10*3/uL (0.1-1.2); Monocytes Percent Auto 7.8 % (2-11); Neutrophils Absolute Auto 3.8 x10*3/uL (2.0-8.3); Neutrophils Percent Auto 53.1 % (45-73); Platelet Count 236 X10*3/uL (160-400); Red Blood Count 4.87 X10*6/uL (4.20-5.50); Red Cell Distribution Width 13.1 % (11.0-16.0); White Blood Count 7.1 X10*3/uL (4.8-10.8)
[2025-02-09 14:06] LABS: Alanine Aminotransferase 23 U/L (0-31); Albumin Level 4.3 g/dL (3.5-5.0); Alkaline Phosphatase 67 U/L (39-117); Anion Gap 8 (12-20); Aspartate Amino Transferase 21 U/L (5-31); Bilirubin Total 0.5 mg/dL (0.0-1.0); Blood Urea Nitrogen 16 mg/dL (9-16); Calcium 9.3 mg/dL (8.4-10.2); Carbon Dioxide 26 mmol/L (22-29); Chloride 108 mmol/L (96-108); Cholesterol 196 mg/dL (<200); Estimated Glomerular Filt Rate > 60; Glucose Fasting 96 mg/dL (60-99); HDL Cholesterol 48 mg/dL (>40); LDL Cholesterol Calculated 125 mg/dL (<100); Potassium 4.3 mmol/L (3.3-5.1); Sodium 138 mmol/L (135-145); Total Protein 7.1 g/dL (6.5-8.0); Triglycerides 116 mg/dL (<150)
[2025-02-09 14:07] LABS: TSH reflex Free T4 0.67 uIU/mL (0.32-4.0)
[2025-02-13 17:09] LABS: Vitamin D 25-OH, D2 <4 ng/mL; Vitamin D 25-OH, D3 34 ng/mL; Vitamin D 25-OH, Total 34 ng/mL (30-100)
== END 2025-02-09 10:18 | disposition home or self-care (01) ==
LOC: HO.HMGCLDS 10:17
PROVIDERS: PCP Internal Medicine; Visit Provider Internal Medicine
DX: Z00.01 Encounter for general adult medical examination with abnormal findings (principal); J45.40 Moderate persistent asthma, uncomplicated; R05.8 Other specified cough; K76.0 Fatty (change of) liver, not elsewhere classified; K21.9 Gastro-esophageal reflux disease without esophagitis; Z91.09 Other allergy status, other than to drugs and biological substances
CPT/HCPCS: 36415; 80053; 80061; 82306; 84443; 85025; 96127; 99212; 99396

== ENCOUNTER 2025-02-09 10:17 | Outpatient (AMB) | payer OTHER, SELFPAY ==
[2025-02-09 10:19] VITALS: BP 118/82; PULSE 65; O2SAT 100; BMI 29.1
--- NOTE | 2025-02-09 10:19 | A.OFFPC_ITS ---
Vital Signs 02/09/25 10:19 Height 5 ft 5 in Weight 175 lb BMI 29.1 BP 118/82 Blood Pressure Location Rt brachial Position Sitting Pulse 65 Pulse Source Pulse Oximeter Pulse Oximetry (%) 100 Oxygen Delivery Method Room Air Intake Visit Reasons: Physical Allergies codeine [CODEINE] Allergy (Intermediate, Verified 02/09/25 10:27) DIZZINESS loratadine [LORATADINE] Allergy (Intermediate, Verified 02/09/25 10:27) NOSEBLEED, nose bleed, nose bleed,headaches amoxicillin [AMOXICILLIN] Allergy (Unknown, Verified 02/09/25 10:27) UNKNOWN REACTION-CHILDHOOD ALLERGY Environmental Allergy (Unknown, Uncoded 02/09/25 10:27) unknown Codeine Phosphate Adverse Reaction (Unknown, Uncoded 02/09/25 10:27) lightheaded Medication List - Last Reconciled 02/09/25 by Arabella Breaux MD albuterol sulfate 90 mcg/actuation (ProAir HFA) 1 inh inhalation QID PRN 30 days budesonide-formoterol 160-4.5 mcg/actuation (Symbicort) 2 puffs inhalation BID 30 days cetirizine (Zyrtec) 10 mg PO DAILY 90 days cholecalciferol (vitamin D3) 50 mcg PO DAILY Tobacco use date assessed: 02/09/25 Dental Screening Dental Screen Date: 02/09/25 Did you have a dental visit in the last 12 months?: Yes Did you have a dental problem in the last 6 months where you did not have access to dental care?: No Was dental information given to patient?: Patient has dentist HPI Physical HPI Details History of Present Illness - The patient is a 64-year-old female pr esenting for an annual physical examination and evaluation of worsening asthma symptoms and musculoskeletal pain. - Asthma: The patient reports continued use of inhaler Symbicort. Symptoms include sudden onset of respiratory issues, primarily during the daytime. The patient mentions worsening symptoms, though inhaler use is regular. She suspects potential triggers beyond usual causes. - Gastroesophageal Reflux Disease (GERD) : Previously diagnosed with GERD, the patient had stopped drinking carbonated mineral water due to it causing symptoms, which have since ceased. She experiences no GERD symptoms currently. - Musculoskeletal Pain: The patient repo rts persistent pain under the shoulder area, described as muscular rather than kidney-related. The pain is experienced during walking two miles with her dog. The patient suspects a strain due to work-related activities. - History of Colon Polyps: The patient h ad a colonoscopy 1.5 years ago, which resulted in the removal of polyps. - Dermatological Concerns: The patient m entions the need to see a manufacturer's representative for unspecified spots. Last manufacturer's representative visit was 3-4 years ago. Health Maintenance - Mammogram up to date as per patient re port. - Last OBGYN visit was a year ago. - Colonoscopy was completed 1.5 years ag o following polyp removal. Follow-up suggested between 1 to 2 years. Patient is to call Dr. 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 - Book appointments with a pulmonary spe cialist and a manufacturer's representative. - I would recommend to start medication for GERD while wait to see the web specialist - go to lab to perform lab studies. - Schedule a follow-up colonoscopy as ad vised by the previous warehouse and receiving supervisor to monitor polyp recurrence. Return in 1 year for physical exam Review of Systems - General: No fever no chills - Neurological: No headaches no dizzin ess - Ear nose throat: No sore throat no hearing difficulty no ear pain - Cardiovascular: No syncope, no chest pain, no palpitations - Gastrointestinal: No nausea vomiting or diarrhea - Endocrine: No polyuria polydipsia no heat intolerance - Genitourinary: No dysuria - Skin: No new complaints Physical Exam General: Cooperative, healthy appearing, comfortable, no acute distress Orientation: Patient oriented x3 Head: Normal to inspection Ears: Within normal limit visually Nose: Normal external nose present Face and sinus: Normal facial exam Eyes: Appearance normal, extraocular movement intact pupils reactive Neck: Normal visual inspection and supple Respiratory: Normal respiratory effort and able to speak in complete sentences. Clear to auscultation, no stridor Cardiovascular: S1 and S2 RRR GI: Normal to inspection. Soft to palpation and nontender Back: Spine nontender to percussion, patient is touching paraspinal thoracolumbar area , feel sore off and on Skin: Turgor normal, no acute findings Neuro: Patient oriented x3, motor sensory intact, balance intact, tandem pass Extremities: Normal to inspection, full range of motion [facility] Medical History Aneurysm Hepatic steatosis Abdominal fullness GERD (gastroesophageal reflux disease) Surgical History Hx of brain surgery Hx of colonoscopy Family History Father No problems noted. Mother No problems noted. 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 1. Little interest or pleasure in doing things: not at all 2. Feeling down, depressed, or hopeless: not at all 3. Trouble falling or staying asleep, or sleeping too much: not at all 4. Feeling tired or having little energy: not at all 5. Poor appetite or overeating: not at all 6. Feeling bad about yourself - or that you are a failure or have let yourself or your family down: not at all 7. Trouble concentrating on things, such as reading the newspaper or watching television: not at all 8. Moving or speaking so slowly that other people could have noticed. Or the opposite - being so fidgety or restless that you have been moving around a lot more than usual: not at all 9. Thoughts that you would be better off or of hurting yourself in some way: not at all Total score: 0 Depression Screening Interpretation: Negative Depression Screening Done: Yes 05857 - PHQ-9 Billing: Yes Source: Developed by Drs. Taj Gale, Michelle Su, Dani Campa and colleagues, with an educational jarocho from [employer]. Thrive Questionnaire Date Thrive assessed: 02/09/25 I am a: Patient What is your living situation today?: I have a steady place to live Within the past 12 months, did the food you bought not last and you didn't have the money to get more?: Never true Within the past 12 months, did you worry whether your food would run out before you got money to buy more?: Never true Do you have trouble paying for medicines?: No Do you have trouble getting transportation to medical appointments?: No Do you have trouble paying your heating and electricity bill?: No Do you have trouble taking care of your child, family member or friend?: No Do you have trouble with day-to-day activities such as bathing, preparing meals, shopping, managing finances, etc.?: No Are you currently unemployed and looking for a job?: No Are you interested in more education?: No Please select the resources that you would like help with: None Currently or been in a relationship where the following occur: No concerns reported THRIVE Score: 0 AUDIT C Alcohol Use Questionnaire (AUDIT-C) 1. How often do you have a drink containing alcohol?: Never 3. How often do you have six or more drinks on one occasion?: Never Total Score: 0 Score Reviewed/Action Taken: Yes CASSANDRA-7 AMB Questionnaire CASSANDRA-7 Date CASSANDRA - 7 assessed: 02/09/25 Feeling nervous, anxious, or on edge: 0 = Not at all Not being able to stop or control worryin = Not at all Worrying too much about different things: 0 = Not at all Trouble relaxin = Not at all Being so restless that it is hard to sit still: 0 = Not at all Becoming easily annoyed or irritable: 0 = Not at all Feeling afraid as if something awful might happen: 0 = Not at all Total CASSANDRA-7 score (0-4 normal; 5-9 mild; 10-14 moderate; 15-21 severe): 0 Source: Developed by Drs. Taj Gale, Michelle Su, Dani Campa and colleagues, with an educational jarocho from [employer]. CASSANDRA-7 Assessment Billing CASSANDRA-7 Assessment Tool: CASSANDRA-7 Assessment 10625 Physical exam (Primary Care) Vital Signs: Last Vital Signs Pulse 65 02/09/25 10:19 BP 118/82 02/09/25 10:19 Pulse Ox 100 02/09/25 10:19 Oxygen Delivery Method Room Air 02/09/25 10:19 BMI result Body Mass Index 29.1 Tobacco/Smoking Status: Tobacco use Status Tobacco use date assessed 02/09/25 02/09/25 10:20 Patient Tobacco Use Status Former Tobacco user 02/09/25 10:20 e-Cigarette/Vaping Use Never Used 02/09/25 10:20 PHQ-9: PHQ-9 Score PHQ-9: Total score 0 02/09/25 10:44 Depression Screening Interpretation: Negative Thrive Assessment: Date of Thrive Assessment Date Thrive assessed 02/09/25 02/09/25 10:20 Currently or been in a relationship where the following occur: No concerns reported Coding Level of Care Code Est Pt Level 3 (19994) Est Pt Prev Care 40-64y(82984) Diagnoses Encounter for general adult medical examination with abnormal findings Z00.01 Moderate persistent asthma without complication J45.40 Asthma complication type: uncomplicated Recurrent cough R05.8 Environmental allergies Z91.09 Hepatic steatosis K76.0 Gastroesophageal reflux disease without esophagitis K21.9 Esophagitis presence: without esophagitis Skin cancer screening Z12.83 Additional Codes CASSANDRA-7 Assessment Billing - CASSANDRA-7 Assessment Tool: CASSANDRA-7 Assessment 97153 ([id number]) PHQ-9 - 66423 - PHQ-9 Billing: Yes ([id number]) Assessment & Plan Assessment & Plan (1) Encounter for general adult medical examination with abnormal findings: Code(s): Z00.01 - Encounter for general adult medical examination with abnormal findings Category: Medical (2) Asthma, moderate persistent: Code(s): J45.40 - Moderate persistent asthma, uncomplicated Category: Medical Qualifiers: Asthma complication type: uncomplicated Qualified Code(s): J45.40 - Moderate persistent asthma, uncomplicated (3) Recurrent cough: Code(s): R05.8 - Other specified cough Category: Medical (4) Environmental allergies: Code(s): Z91.09 - Other allergy status, other than to drugs and biological substances Category: Medical (5) Hepatic steatosis: Code(s): K76.0 - Fatty (change of) liver, not elsewhere classified Category: Medical (6) GERD (gastroesophageal reflux disease): Code(s): K21.9 - Gastro-esophageal reflux disease without esophagitis Category: Medical Qualifiers: Esophagitis presence: without esophagitis Qualified Code(s): K21.9 - Ga stro-esophageal reflux disease without esophagitis (7) Skin cancer screening: Code(s): Z12.83 - Encounter for screening for malignant neoplasm of skin Category: Medical Plan History of Present Illness - The patient is a 64-year-old female presenting for an annual physical examination and evaluation of worsening asthma symptoms and musculoskeletal pain. - Asthma: The patient reports continued use of inhaler Symbicort. Symptoms include sudden onset of respiratory issues, primarily during the daytime. The patient mentions worsening symptoms, though inhaler use is regular. She suspects potential triggers beyond usual causes. - Gastroesophageal Reflux Disease (GERD): Previously diagnosed with GERD, the patient had stopped drinking carbonated mineral water due to it causing symptoms, which have since ceased. She experiences no GERD symptoms currently. - Musculoskeletal Pain: The patient reports persistent pain under the shoulder area, described as muscular rather than kidney-related. The pain is experienced during walking two miles with her dog. The patient suspects a strain due to work-related activities. - History of Colon Polyps: The patient had a colonoscopy 1.5 years ago, which resulted in the removal of polyps. - Dermatological Concerns: The patient mentions the need to see a manufacturer's representative for unspecified spots. Last manufacturer's representative visit was 3-4 years ago. Health Maintenance - Mammogram up to date as per patient report. - Last OBGYN visit was a year ago. - Colonoscopy was completed 1.5 years ago following polyp removal. Follow-up suggested between 1 to 2 years. Patient is to call Dr. 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 - Book appointments with a web specialist and a manufacturer's representative. - I would recommend to start medication for GERD while wait to see the web specialist - go to lab to perform lab studies. - Schedule a follow-up colonoscopy as advised by the previous warehouse and receiving supervisor to monitor polyp recurrence. Return in 1 year for physical exam Orders: Orders Complete Blood Count Auto Diff Today J45.40 - Moderate persistent asthma, uncomplicated, K21.9 - Gastro-esophageal reflux disease without esophagitis, K76.0 - Fatty (change of) liver, not elsewhere classified, Z00.01 - Encounter for general adult medical examination with abnormal findings, Z91.09 - Other allergy status, other than to drugs and biological substances Lipid Panel Today J45.40 - Moderate persistent asthma, uncomplicated, K21.9 - Gastro-esophageal reflux disease without esophagitis, K76.0 - Fatty (change of) liver, not elsewhere classified, Z00.01 - Encounter for general adult medical examination with abnormal findings, Z91.09 - Other allergy status, other than to drugs and biological substances Comprehensive [place]. Panel Fast Today J45.40 - Moderate persistent asthma, uncomplicated, K21.9 - Gastro-esophageal reflux disease without esophagitis, K76.0 - Fatty (change of) liver, not elsewhere classified, Z00.01 - Encounter for general adult medical examination with abnormal findings, Z91.09 - Other allergy status, other than to drugs and biological substances Vitamin D 25-OH (D2 and D3) Today J45.40 - Moderate persistent asthma, uncomplicated, K21.9 - Gastro-esophageal reflux disease without esophagitis, K76.0 - Fatty (change of) liver, not elsewhere classified, Z00.01 - Encounter for general adult medical examination with abnormal findings, Z91.09 - Other allergy status, other than to drugs and biological substances TSH reflex Free T4 Today J45.40 - Moderate persistent asthma, uncomplicated, K21.9 - Gastro-esophageal reflux disease without esophagitis, K76.0 - Fatty (change of) liver, not elsewhere classified, Z00.01 - Encounter for general adult medical examination with abnormal findings, Z91.09 - Other allergy status, other than to drugs and biological substances Referrals Pulmonology Referral J45.40 - Moderate persistent asthma, uncomplicated, R05.8 - Other specified cough Dermatology Referral Z12.83 - Encounter for screening for malignant neoplasm of skin
--- OUTSIDE RECORDS SUMMARY | 2025-02-09 11:28 | XMS_ITS | Clinical Summary ---
Author Organization [facility] [address] [place] [address] Address [address] [place], [place] Phone Care Team Providers Care Pc Technician Name Role Phone Arabella Breaux MD Primary Care Provider [phone] Encounters Date Type Department Care Team Description 01/21/2025 10:34 AM EDT - 01/21/2025 11:59 PM EDT Hospital Encounter Radiology Department [address] [phone] Encounter for screening mammogram for breast cancer Discharge Disposition: Home or Self Care from Last 3 Months Surgical History Surgery Date Site/Laterality Comments BREAST SURGERY 2009 Right PROCEDURE: ME UNLISTED PROCEDURE BREAST; COMMENT: b9 APPENDECTOMY PROCEDURE: HISTORICAL APPENDECTOMY BREAST BIOPSY 2009 Right PROCEDURE: BX BREAST; PERC NEEDLE CORE W/IMAG GUID; COMMENT: b9 OTHER SURGICAL HISTORY 06/2018 PROCEDURE: ---- OTHER ----; COMMENT: post brain aneurysm clip Medical History Medical History Date Comments Aneurysm ([facility]/HCC V24) 01/12/2019 DX:Aneury sm ([facility]) Family History Medical History Relation Name Comments Breast cancer Neg Hx Colon cancer Neg Hx Ovarian cancer Neg Hx Pancreatic cancer Neg Hx Prostate cancer Neg Hx Uterine cancer Neg Hx Social History Tobacco Use Types Packs/Day Years Used Date Smoking Tobacco: Former Smokeless Tobacco: Never Alcohol Use Standard Drinks/Week Comments Not Currently 0 (1 standard drink = 0.6 oz pur e alcohol) Comments No Sex and Gender Information Value Date Recorded Sex Assigned at Not on file Legal Sex Female 10:27 PM EST Gender Identity Not on file Sexual Orientation Not on file Obstetrics History Para Term AB IAB SAB Ectopic Multiple Livin g Live Births 0 0 0 0 Last Filed Vital Signs Vital Sign Reading Time Taken Comments Blood Pressure 117/68 03/30/2024 11:24 AM EDT Pulse 67 03/30/2024 11:24 AM EDT Temperature - - Respiratory Rate - - Oxygen Saturation - - Inhaled Oxygen Concentration - - Weight 82.9 kg (182 lb 12.8 oz) 024 11:24 AM EDT Height 165.1 cm (5' 5 ) 03/30/2024 11:2 4 AM EDT Body Mass Index 30.42 03/30/2024 11:24 AM EDT Plan of Treatment Health Maintenance Due Date Last Done Comments Hepatitis A Vaccines (1 of 2 - Risk 2-dose series) 1981 Pneumococcal Vaccine: 50+ Years (1 of 2 - PCV) 1981 Pneumococcal Vaccine: Pediatrics (0 to 5 Years) and At-Risk Patients (6 to 64 Years) (1 of 2 - PCV) 1981 Cervical Cancer Screening: HPV 1983 Zoster Vaccines (1 of 2) 2012 Colorectal Cancer Screening: Colonoscopy 09/01/2022 Depression Screening 09/01/2022 HIV Screening 09/01/2022 Hepatitis C Screening 09/01/2022 Social Influencers of Health Screening 09/01/2022 Hepatitis B Vaccines (1 of 3 - Risk 3-dose series) 2022 RSV Immunization Adult Patients (1 - Risk 60-74 years 1-dose series) 2022 COVID-19 Vaccine ( season) 2024 09/17/2022, 04/08/2022, 08/21/2021, Additional history exists Influenza Vaccine (Season Ended) 2025 Breast Cancer Screening 01/21/2027 01/22/20, 02/10/2024, 02/10/2024, Additional history exists DTaP,Tdap,and Td Vaccines (2 - Td or Tdap) 07/02/2028 07/02/2018 HIB Vaccines Aged Out No longer eligi ble based on patient's age to complete this topic HPV Vaccines Aged Out No longer eligi ble based on patient's age to complete this topic IPV Vaccines Aged Out No longer eligi ble based on patient's age to complete this topic MMR Vaccines Aged Out No longer eligi ble based on patient's age to complete this topic Meningococcal ACWY Vaccine Aged Out N o longer eligible based on patient's age to complete this topic Meningococcal B Vaccine Aged Out No l onger eligible based on patient's age to complete this topic RSV Immunization Patients Under 20 months Aged Out No longer eligible based on patient's age to complete this topic Varicella Vaccines Aged Out No longer eligible based on patient's age to complete this topic Procedures Procedure Name Priority Date/Time Associated Diagnosis Comments MG MAMMO DIGITAL SCREENING W FLYNN BILAT Routine 01/21/2025 10:45 AM EDT Encounter for screening mammogram for breast cancer from Last 3 Months Results * MG Mammo Digital Screening w Flynn bilat (01/21/2025 10:45 AM EDT) Anatomical Region Laterality Modality Breast Bilateral Mammography 01/21/2025 2:51 PM EDT Impressions 01/21/2025 2:55 PM EDT Benign. BI-RADS CATEGORY: 1 - NEGATIVE RECOMMENDATION: Screening bilateral mammogram is recommended in 1 year. Mammo Location: [facility], [address] [place] [address], [id number], . -------- FINAL REPORT -------- Dictated By: Tessa Morel Dictated Date: 01/21/2025 14:51 ET Assigned Physician: Tessa Morel Reviewed and Electronically Signed By: Tessa Morel Signed Date: 01/21/2025 14:55 ET Workstation ID: [id number] Transcribed By: Self Edit Transcribed Date: 01/21/2025 14:51 ET Narrative 01/21/2025 2:55 PM EDT CLINICAL: 64 years old, Female, routine annual exam. COMPARISON: Mammograms dating back to 12/12/2020 with most recent of 01/13/2024. ?? TECHNIQUE: Bilateral MLO and CC views were obtained digitally with 3-D mammogram (digital breast tomosynthesis). Computer-aided detection was utilized in evaluation of this exam (CAD). FINDINGS: There is no evidence of suspicious mass or architectural distortion. ??No worrisome calcifications are evident. ??There has been no significant change from prior exam(s). ?? BREAST DENSITY: C - The breasts are heterogeneously dense which may obscure small masses. Procedure Note Tessa Morel MD - 01/21/2025 CLINICAL: 64 years old, Female, routine annual exam. COMPARISON: Mammograms dating back to 12/12/2020 with most recent of01/13/2024. TECHNIQUE: Bilateral MLO and CC views were obtained digitally with 3-Dmammogram (digital breast tomosynthesis). Computer-aided detection wasutilized in evaluation of this exam (CAD). FINDINGS: There is no evidence of suspicious mass or architectural distortion. Noworrisome calcifications are evident. There has been no significantchange from prior exam(s). BREAST DENSITY: C - The breasts are heterogeneously dense which mayobscure small masses. IMPRESSION: Benign. BI-RADS CATEGORY: 1 - NEGATIVE RECOMMENDATION: Screening bilateral mammogram is recommended in 1 year. Mammo Location: [facility], [address] [place] [address], [id number], . -------- FINAL REPORT -------- Dictated By: Tessa Morel Dictated Date: 01/21/2025 14:51 ET Assigned Physician: Tessa Morel Reviewed and Electronically Signed By: Tessa Morel Signed Date: 01/21/2025 14:55 ET Workstation ID: [id number] Transcribed By: Self Edit Transcribed Date: 01/21/2025 14:51 ET us Arabella Breaux MD IMG BI PROCEDURES Final Result from Last 3 Months Insurance [facility] [employer] Care Teams Pc Technician Relationship Specialty Start Date End Date Arabella Breaux MD [address] [place] [phone] PCP - General 09/23/10
== END 2025-02-09 11:12 | disposition home or self-care (01) ==
LOC: HO.HMCC 10:18
PROVIDERS: PCP Internal Medicine; Visit Provider Internal Medicine
DX: Z00.01 Encounter for general adult medical examination with abnormal findings (principal); J45.40 Moderate persistent asthma, uncomplicated; R05.8 Other specified cough; Z91.09 Other allergy status, other than to drugs and biological substances; K76.0 Fatty (change of) liver, not elsewhere classified; K21.9 Gastro-esophageal reflux disease without esophagitis; Z12.83 Encounter for screening for malignant neoplasm of skin

== ENCOUNTER 2025-03-18 08:27 | Outpatient (AMB) | payer OTHER, SELFPAY ==
[2025-03-18 08:36] VITALS: BP 112/58; PULSE 64; TEMP 37.1; O2SAT 98; BMI 29.1
--- NOTE | 2025-03-18 08:36 | AM.OFFWIN_ITS ---
Intake Vital Signs 03/18/25 08:36 Height 5 ft 5 in Weight 175 lb BMI 29.1 BP 112/58 L Blood Pressure Location Rt brachial Position Sitting Pulse 64 Pulse Source Pulse Oximeter Temp 98.8 F Temp Source Oral Pulse Oximetry (%) 98 Oxygen Delivery Method Room Air Intake Visit Reasons: EP-rt ear ache Intake Note: pt here for rt ear pain x 1 week (no pain at present), comes/goes, was feeling sharp pain behind ear and rt side of head with headache. h/o brain aneurysm per patient Patient Tobacco Use Status: Former Tobacco user Allergies codeine (CODEINE) Allergy (Intermediate, Verified 03/18/25 08:36) DIZZINESS loratadine (LORATADINE) Allergy (Intermediate, Verified 03/18/25 08:36) NOSEBLEED, nose bleed, nose bleed,headaches amoxicillin (AMOXICILLIN) Allergy (Unknown, Verified 03/18/25 08:36) UNKNOWN REACTION-CHILDHOOD ALLERGY Environmental Allergy (Unknown, Uncoded 02/09/25 10:27) unknown Codeine Phosphate Adverse Reaction (Unknown, Uncoded 02/09/25 10:27) lightheaded Do you need a note to return to daycare/school/sports/work: No HPI HPI Comments History of Present Illness Details ?History - The patient is a 64-year-old female pr esenting with ear pressure and fluid accumulation behind the ear. - The ear pressure began a week ago, ivory cribed as a heavy sensation behind the ear. - She has no hearing loss. - The patient has a history of allergies and takes cetirizine. - Denies fever or chills, CP, SOB, abd p ain, n/v/d, dizziness, sore throat, cough, runny nose, or sick contacts. Physical Exam General: Cooperative, healthy appearing, comfortable and no acute distress Head: Normal to inspection Ears: Hearing grossly normal bilaterally, external ears normal and TM's normal bilaterally. Effusion noted on the left. Canal is clear. Nose: Normal external nose present, normal nares present, and no nasal discharge present. Face and sinus: Sinuses nontender to palpation Mouth: Normal oral and palatal mucosa present and moist mucous membranes noted. Throat: Tonsils normal. Uvula is midline. Posterior oropharynx with erythema and no exudates. Neck: Normal visual inspection, full ROM. No lymphadenopathy noted. Respiratory: Clear to auscultation bilaterally. Normal respiratory effort, able to speak in complete sentences. No respiratory distress, not tachypneic, no tripod positioning and no use of accessory muscles. Cardiovascular: Regular rate and rhythm. Normal S1 and S2 Skin: No rashes or lesions noted Patient was informed and verbally consented to the use of an ambient scribe for clinic note documentation during this visit [facility] Medical History Aneurysm Hepatic steatosis Abdominal fullness GERD (gastroesophageal reflux disease) Surgical History Hx of brain surgery Hx of colonoscopy Family History Father No problems noted. Mother No problems noted. 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 Cognitive needs: No Hearing needs: No Vision needs: No Review of Systems Const All systems reviewed & are unremarkable except as noted in HPI and below Physical Exam Vital Signs: Last Vital Signs Temp 98.8 F 03/18/25 08:36 Pulse 64 03/18/25 08:36 BP 112/58 L 03/18/25 08:36 Pulse Ox 98 03/18/25 08:36 Oxygen Delivery Method Room Air 03/18/25 08:36 BMI result Body Mass Index 29.1 Assessment & Plan Assessment & Plan (1) Right ear pain: Code(s): H92.01 - Otalgia, right ear Plan Most likely OM vs OE vs ET dysfunction vs effusion vs allergic rhinitis Plan - Prescribe a combination medication containing an allergy medication and a decongestant. - Prescribe a nasal spray to address fluid accumulation and congestion. - Use ear drops 3 times a day for pain - tylenol or motrin as needed for pain - VSS, pt well appearing - follow up with PCP Medications: New hydrocortisone-acetic acid 1-2 % 4 drps otic (ear) right TID 10 mL 0RF cetirizine-pseudoephedrine 5-120 mg ER 1 tab PO BID 14 tabs 0RF 7 days fluticasone propionate 50 mcg/actuation administer into each nostril 1 spray intranasal Q12H 16 grams 0RF Coding Level of Care Code Est Pt Level 3 (71867) Diagnoses Right ear pain H92.01
--- OUTSIDE RECORDS SUMMARY | 2025-03-18 08:45 | XMS_ITS | Clinical Summary ---
Author Organization [facility] [address] [place] [address] Address [address], [place] Phone Care Team Providers Care School Library Media Program Director Name Role Phone Arabella Breaux MD Primary Care Provider [phone] Encounters Date Type Department Care Team Description 01/21/2025 10:34 AM EDT - 01/21/2025 11:59 PM EDT Hospital Encounter Radiology Department [address] [phone] Encounter for screening mammogram for breast cancer Discharge Disposition: Home or Self Care from Last 3 Months Surgical History Surgery Date Site/Laterality Comments BREAST SURGERY 2009 Right PROCEDURE: [place] UNLISTED PROCEDURE BREAST; COMMENT: b9 APPENDECTOMY PROCEDURE: HISTORICAL APPENDECTOMY BREAST BIOPSY 2009 Right PROCEDURE: BX BREAST; PERC NEEDLE CORE W/IMAG GUID; COMMENT: b9 OTHER SURGICAL HISTORY 06/2018 PROCEDURE: ---- OTHER ----; COMMENT: post brain aneurysm clip Medical History Medical History Date Comments Aneurysm ([facility]/HCC V24) 01/12/2019 DX:Aneury sm ([facility]) Family History Medical History Relation Name Comments [...] is recommended in 1 year. Mammo Location: [facility], [address] [place] [address], [address], . -------- FINAL REPORT -------- Dictated By: Tessa Morel Dictated Date: 01/21/2025 14:51 ET Assigned Physician: Tessa Morel Reviewed and Electronically Signed By: Tessa Morel Signed Date: 01/21/2025 14:55 ET Workstation ID: [id number] Transcribed By: Self Edit Transcribed Date: 01/21/2025 14:51 ET Narrative 01/21/2025 2:55 PM EDT CLINICAL: 64 years old, Female, routine annual exam. COMPARISON: Mammograms dating back to 12/12/2020 with most recent of 01/13/2024. TECHNIQUE: Bilateral MLO and CC views were obtained digitally with 3-D mammogram (digital breast tomosynthesis). Computer-aided detection was utilized in evaluation of this exam (CAD). FINDINGS: There is no evidence of suspicious mass or architectural distortion. No worrisome calcifications are evident. There has been no significant change from prior exam(s). BREAST DENSITY: C - [...] is recommended in 1 year. Mammo Location: [facility], [address] [place] [address], [address], . -------- FINAL REPORT -------- Dictated By: Tessa Morel Dictated Date: 01/21/2025 14:51 ET Assigned Physician: Tessa Morel Reviewed and Electronically Signed By: Tessa Morel Signed Date: 01/21/2025 14:55 ET Workstation ID: [id number] Transcribed By: Self Edit Transcribed Date: 01/21/2025 14:51 ET Arabella Breaux MD IMG BI PROCEDURES Final Result from Last 3 Months Insurance [facility] Care Teams School Library Media Program Director Relationship Specialty Start Date End Date Arabella Breaux MD [address] [place] [phone] PCP - General 09/23/10
== END 2025-03-18 10:17 | disposition home or self-care (01) ==
PROVIDERS: PCP Internal Medicine; Visit Provider Physician Assistant Medical
DX: H92.01 Otalgia, right ear (principal)

== ENCOUNTER → 2025-03-18 08:27 | Outpatient (BNVA) | payer OTHER, SELFPAY | PROVIDERS: PCP Internal Medicine; Visit Provider Physician Assistant Medical | DX: H92.01 Otalgia, right ear (principal) | CPT/HCPCS: 99212 ==

== ENCOUNTER 2025-04-16 12:45 | Outpatient (AMB) | payer OTHER, SELFPAY ==
--- OUTSIDE RECORDS SUMMARY | 2025-04-16 12:48 | XMS_ITS | Clinical Summary ---
Author Organization [facility] [address] [place] [address] Address [address] [place], [place] Phone Care Team Providers Care Credit Support Counselor Name Role Phone Arabella Breaux MD Primary Care Provider [phone] Encounters Date Type Department Care Team Description 01/21/2025 10:34 AM EDT - 01/21/2025 11:59 PM EDT Hospital Encounter Radiology Department [address] [phone] Encounter for screening mammogram for breast cancer Discharge Disposition: Home or Self Care from Last 3 Months Surgical History Surgery Date Site/Laterality Comments BREAST SURGERY 2009 Right PROCEDURE: [place] UNLISTED PROCEDURE BREAST; COMMENT: b9 APPENDECTOMY PROCEDURE: HISTORICAL APPENDECTOMY BREAST BIOPSY 2009 Right PROCEDURE: BX BREAST; PERC NEEDLE CORE W/IMAG GUID; COMMENT: b9 OTHER SURGICAL HISTORY 06/2018 PROCEDURE: ---- OTHER ----; COMMENT: post brain aneurysm clip Medical History Medical History Date Comments Aneurysm ([facility]/HCC V24) 01/12/2019 DX:Aneury sm ([facility]) Family History Medical History Relation Name Comments [...] Years (1 of 2 - PCV) 1981 Cervical Cancer Screening: HPV 1983 Zoster Vaccines (1 of 2) 2012 Colorectal Cancer Screening: Colonoscopy 09/01/2022 HIV Screening 09/01/2022 Hepatitis C Screening 09/01/2022 Social Influencers of Health Screening 09/01/2022 Hepatitis B Vaccines (1 of 3 - Risk 3-dose series) 2022 RSV Immunization Adult Patients (1 - Risk 60-74 years 1-dose series) 2022 COVID-19 Vaccine ( season) 2024 09/17/2022, 04/08/2022, 08/21/2021, Additional history exists Depression Screening 09/23/2024 Influenza Vaccine (#1) 2025 Breast Cancer Screening 01/21/2027 01/22/20, 02/10/2024, [...] is recommended in 1 year. Mammo Location: [facility], [address] [place] [address], [address], . -------- FINAL REPORT -------- Dictated By: Tessa Morel Dictated Date: 01/21/2025 14:51 ET Assigned Physician: Tessa Morel Reviewed and Electronically Signed By: Tessa Morel Signed Date: 01/21/2025 14:55 ET Workstation ID: [id number] Transcribed By: Self Edit Transcribed Date: 01/21/2025 [...] is recommended in 1 year. Mammo Location: [facility], [address] [place] [address], [address], . -------- FINAL REPORT -------- Dictated By: Tessa Morel Dictated Date: 01/21/2025 14:51 ET Assigned Physician: Tessa Morel Reviewed and Electronically Signed By: Tessa Morel Signed Date: 01/21/2025 14:55 ET Workstation ID: [id number] Transcribed By: Self Edit Transcribed Date: 01/21/2025 14:51 ET Arabella Breaux MD IMG BI PROCEDURES Final Result from Last 3 Months Insurance [facility] Care Teams Credit Support Counselor Relationship Specialty Start Date End Date Arabella Breaux MD [address] [place] [id number] PCP - General 09/23/10
--- NOTE | 2025-04-16 12:49 | A.OFFPC_ITS ---
Vital Signs 3 04/16/25 12:50 Weight 170 lb BP 128/78 Blood Pressure Location Lt brachial Position Sitting Respiration 16 Pulse 72 Pulse Source Pulse Oximeter Temp 98.2 F Temp Source Oral Pulse Oximetry (%) 98 Oxygen Delivery Method Room Air Intake Visit Reasons: Ear Problem and Headache Neuroscience Director Na Required: No Accompanied by: Self / Same As Patient Allergies codeine (CODEINE) Allergy (Intermediate, Verified 04/16/25 12:54) DIZZINESS loratadine (LORATADINE) Allergy (Intermediate, Verified 04/16/25 12:54) NOSEBLEED, nose bleed, nose bleed,headaches amoxicillin (AMOXICILLIN) Allergy (Unknown, Verified 04/16/25 12:54) UNKNOWN REACTION-CHILDHOOD ALLERGY Environmental Allergy (Unknown, Uncoded 02/09/25 10:27) unknown Codeine Phosphate Adverse Reaction (Unknown, Uncoded 02/09/25 10:27) lightheaded Medication List - Last Reconciled 04/16/25 by Arabella Breaux MD albuterol sulfate 90 mcg/actuation (ProAir HFA) 1 inh inhalation QID PRN 30 days budesonide-formoterol 160-4.5 mcg/actuation (Symbicort) 2 puffs inhalation BID 30 days cetirizine (Zyrtec) 10 mg PO DAILY 90 days cetirizine-pseudoephedrine 5-120 mg ER 1 tab PO BID 7 days fluticasone propionate 50 mcg/actuation 1 spray intranasal Q12H hydrocortisone-acetic acid 1-2 % 4 drps otic (ear) right TID Tobacco use date assessed: 04/16/25 Dental Screening Dental Screen Date: 04/16/25 Did you have a dental visit in the last 12 months?: Yes Did you have a dental problem in the last 6 months where you did not have access to dental care?: No Was dental information given to patient?: Patient has dentist HPI Ear Problem and Headache 2 HPI0 Details History of Present Illness - The patient is a 64-year-old female pr esenting with episodic shooting headaches and ear discomfort. right - Headaches began months ago, described as a slow shooting pain that extends from the back to the front of the head, often felt behind the eye. - Pain quality is notable for a sporadic sensation lasting 20 minutes and is accompanied by a sensation of heat. - Symptoms do not localize to one side; rather, they are felt throughout the head. - Reports of ear discomfort, having occu rred three times, with no ongoing current pain during visit. - Reports grinding of teeth, potentially contributing to the irritation of nerves and subsequent pain . - Frequently experiences a feeling of he aviness, prompting the desire for an EKG evaluation. - Reports having a stuffy nose consisten tly. - Previously used Flonase with reported efficacy. Medications: - Flonase, previously prescribed and eff ective for nasal congestion. Social History: - Reports grinding of teeth contributing to jaw tension. Problem List - Episodic shooting headache - Recurrent ear discomfort - Teeth grinding - Chronic nasal congestion - Sensation of heaviness EKG : NSR 68 Bpm, no acute finding, RR in V1 and V2 Patient Instructions - Use Flonase once at night for nasal co ngestion. - Schedule an appointment to see Tracey gramajo for further evaluation of neurological symptoms. ref to Cardio for full cardiac check up Review of Systems - General: No fever no chills - Ear nose throat: No sore throat no hearing difficulty - Cardiovascular: No syncope, no chest pain, no palpitations - Gastrointestinal: No nausea vomiting or diarrhea - Endocrine: No polyuria polydipsia no heat intolerance - Genitourinary: No dysuria , no blood in urine Physical Exam General: No acute distress HEENT: Right WNL Neck: Supple, Respiratory system: Able to talk in full sentences, no audible wheeze Cardiovascular: S1-S2 regular in rate and rhythm, Gastrointestinal: No pain Extremities: No new findings DEPUTY COUNTY CLERK: Alert awake oriented x3 motor sensory intact, Skin: Normal turgor [facility] Medical History Aneurysm Hepatic steatosis Abdominal fullness GERD (gastroesophageal reflux disease) Surgical History Hx of brain surgery Hx of colonoscopy Family History Father No problems noted. Mother No problems noted. 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 1. Little interest or pleasure in doing things: not at all 2. Feeling down, depressed, or hopeless: not at all 3. Trouble falling or staying asleep, or sleeping too much: not at all 4. Feeling tired or having little energy: not at all 5. Poor appetite or overeating: not at all 6. Feeling bad about yourself - or that you are a failure or have let yourself or your family down: not at all 7. Trouble concentrating on things, such as reading the newspaper or watching television: not at all 8. Moving or speaking so slowly that other people could have noticed. Or the opposite - being so fidgety or restless that you have been moving around a lot more than usual: not at all 9. Thoughts that you would be better off or of hurting yourself in some way: not at all Total score: 0 Depression Screening Interpretation: Negative Depression Screening Done: Yes 34323 - PHQ-9 Billing: Yes Source: Developed by Drs. Taj Gale, Michelle Su, Dani Campa and colleagues, with an educational jarocho from [employer]. Thrive Questionnaire Date Thrive assessed: 02/02/25 I am a: Patient What is your living situation today?: I have a steady place to live Within the past 12 months, did the food you bought not last and you didn't have the money to get more?: Never true Within the past 12 months, did you worry whether your food would run out before you got money to buy more?: Never true Do you have trouble paying for medicines?: No Do you have trouble getting transportation to medical appointments?: No Do you have trouble paying your heating and electricity bill?: No Do you have trouble taking care of your child, family member or friend?: No Do you have trouble with day-to-day activities such as bathing, preparing meals, shopping, managing finances, etc.?: No Are you currently unemployed and looking for a job?: No Are you interested in more education?: No Please select the resources that you would like help with: None Currently or been in a relationship where the following occur: No concerns reported THRIVE Score: 0 CASSANDRA-7 AMB Questionnaire CASSANDRA-7 Date CASSANDRA - 7 assessed: 02/09/25 Feeling nervous, anxious, or on edge: 0 = Not at all Not being able to stop or control worryin = Not at all Worrying too much about different things: 0 = Not at all Trouble relaxin = Not at all Being so restless that it is hard to sit still: 0 = Not at all Becoming easily annoyed or irritable: 0 = Not at all Feeling afraid as if something awful might happen: 0 = Not at all Total CASSANDRA-7 score (0-4 normal; 5-9 mild; 10-14 moderate; 15-21 severe): 0 Source: Developed by Drs. Taj Gale, Michelle Su, Dani Campa and colleagues, with an educational jarocho from [employer]. CASSANDRA-7 Assessment Billing CASSANDRA-7 Assessment Tool: CASSANDRA-7 Assessment 91279 Physical exam (Primary Care) Vital Signs: Last Vital Signs Temp 98.2 F 04/16/25 12:50 Pulse 72 04/16/25 12:50 Resp 16 04/16/25 12:50 BP 128/78 04/16/25 12:50 Pulse Ox 98 04/16/25 12:50 Oxygen Delivery Method Room Air 04/16/25 12:50 Tobacco/Smoking Status: Tobacco use Status Tobacco use date assessed 04/16/25 04/16/25 12:56 Patient Tobacco Use Status Former Tobacco user 04/16/25 12:56 e-Cigarette/Vaping Use Never Used 04/16/25 12:49 PHQ-9: PHQ-9 Score PHQ-9: Total score 0 04/16/25 13:12 Depression Screening Interpretation: Negative Thrive Assessment: Date of Thrive Assessment Date Thrive assessed 02/02/25 04/16/25 12:49 Currently or been in a relationship where the following occur: No concerns reported Cardio Other: Coding Level of Care Code Est Pt Level 5 (15401) Diagnoses Neuralgia M79.2 Chest heaviness R07.89 Abnormal EKG R94.31 Nasal congestion R09.81 Environmental allergies Z91.09 Additional Codes CASSANDRA-7 Assessment Billing - CASSANDRA-7 Assessment Tool: CASSANDRA-7 Assessment 60743 ([id number]) PHQ-9 - 16989 - PHQ-9 Billing: Yes ([id number]) Time Spent (min) 40 Assessment & Plan Assessment & Plan (1) Neuralgia: Code(s): M79.2 - Neuralgia and neuritis, unspecified Category: Medical (2) Chest heaviness: Code(s): R07.89 - Other chest pain Category: Medical (3) Abnormal EKG: Code(s): R94.31 - Abnormal electrocardiogram [ECG] [EKG] Category: Medical (4) Nasal congestion: Code(s): R09.81 - Nasal congestion Category: Medical (5) Environmental allergies: Code(s): Z91.09 - Other allergy status, other than to drugs and biological substances Category: Medical Plan History - The patient is a 66-year-old male presenting with severe osteoarthritis and back pain, managed with oxycodone every 8 hours. The medication has been effective in reducing pain severity, allowing daily activities without excessive discomfort. - Pain has been present for an extended period and is described as severe, with exacerbations occurring regularly. The intensity of pain varies but is reported as being significant, impacting quality of life. - The patient also reports ongoing hypothyroidism, managed with levothyroxine 50 mg. The condition appears stable with current treatment. - The patient suffers from insulin-dependent diabetes, with a history of regular laboratory monitoring, last completed in October, and due for follow-up tests. - Lipid disorder is controlled with atorvastatin 10 mg. - Blood pressure is managed with amlodipine and benazepril 10-20 mg daily. - Uncertainty regarding the continuation of lamotrigine 100 mg BID, last filled in 2021 by a previous provider, with no recent usage confirmed. - Notable for obesity, with a BMI of 38.7. Medical History: - Severe Osteoarthritis - Chronic Back Pain - Hypothyroidism - Insulin-Dependent Diabetes Mellitus - Dyslipidemia - Hypertension - Obesity Medications: - Oxycodone, every 8 hours for pain management related to osteoarthritis. - Levothyroxine 50 mg for hypothyroidism. - Atorvastatin 10 mg for lipid disorder. - Amlodipine and Benazepril 10-20 mg daily for hypertension. - Lamotrigine 100 mg BID, uncertain adherence, last filled in 2021. 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 Diagnostic Results: - Labs: Full set of labs last completed in October. Problem List - Severe Osteoarthritis - Chronic Back Pain - Hypothyroidism - Insulin-Dependent Diabetes Mellitus - Dyslipidemia - Hypertension - Obesity Patient Instructions - I'll send your medication over to the pharmacy; you can pick it up there. - Please do the blood test before your next appointment. - continue medications your oxycodone script sent to pharmacy Orders: Referrals 2 Cardiology Referral R07.89 - Other chest pain, R94.31 - Abnormal electrocardiogram [ECG] [EKG] Neurology Referral M79.2 - Neuralgia and neuritis, unspecified Medications: New 2 gabapentin 100 mg PO BEDTIME 30 caps 0RF Refilled 2 fluticasone propionate 50 mcg/actuation administer into each nostril 1 spray intranasal Q12H 16 grams 2RF
[2025-04-16 12:50] VITALS: BP 128/78; PULSE 72; RESP 16; TEMP 36.8; O2SAT 98
== END 2025-04-16 14:02 | disposition home or self-care (01) ==
LOC: HO.HMCC 12:46
PROVIDERS: PCP Internal Medicine; Visit Provider Internal Medicine
DX: R07.89 Other chest pain (principal); M79.2 Neuralgia and neuritis, unspecified; R94.31 Abnormal electrocardiogram [ECG] [EKG]; R09.81 Nasal congestion; Z91.09 Other allergy status, other than to drugs and biological substances

== ENCOUNTER → 2025-04-16 12:45 | Outpatient (BNVA) | payer OTHER, SELFPAY | PROVIDERS: PCP Internal Medicine; Visit Provider Internal Medicine | DX: K21.9 Gastro-esophageal reflux disease without esophagitis (principal); M79.2 Neuralgia and neuritis, unspecified; R51.9 Headache, unspecified; R07.89 Other chest pain; R94.31 Abnormal electrocardiogram [ECG] [EKG]; R09.81 Nasal congestion; Z91.09 Other allergy status, other than to drugs and biological substances | CPT/HCPCS: 96127; 99212 ==

== ENCOUNTER 2025-04-26 14:56 | Outpatient (AMB) | payer OTHER, SELFPAY ==
--- OUTSIDE RECORDS SUMMARY | 2025-04-26 14:59 | XMS_ITS | Clinical Summary ---
Author Organization [address] Address [address] [place] [address] [place] [address] Phone Care Team Providers Care Ccna Name Role Phone Arabella Breaux MD Primary Care Provider [phone] Surgical History Surgery Date Site/Laterality Comments BREAST SURGERY 2009 Right PROCEDURE: OK UNLISTED PROCEDURE BREAST; COMMENT: b9 APPENDECTOMY PROCEDURE: HISTORICAL APPENDECTOMY BREAST BIOPSY 2009 Right PROCEDURE: BX BREAST; PERC NEEDLE CORE W/IMAG GUID; COMMENT: b9 OTHER SURGICAL HISTORY 06/2018 PROCEDURE: ---- OTHER ----; COMMENT: post brain aneurysm clip Medical History Medical History Date Comments Aneurysm (CMS/HCC V24) 01/12/2019 DX:[facility] sm (HCC) Family History Medical History Relation Name Comments [...] for breast cancer from Last 3 Months or Most Recently Relevant to Health Maintenance Results * MG Mammo Digital Screening w Flynn bilat (01/21/2025 10:45 AM EDT) Anatomical Region Laterality Modality Breast Bilateral Mammography 01/21/2025 2:51 PM EDT Impressions 01/21/2025 2:55 PM EDT Benign. BI-RADS CATEGORY: 1 - NEGATIVE RECOMMENDATION: Screening bilateral mammogram is recommended in 1 year. Mammo Location: [facility], [address] [place] [address], [phone], . -------- FINAL REPORT -------- Dictated By: Tessa Morel Dictated Date: 01/21/2025 14:51 ET Assigned Physician: Tessa Morel Reviewed and Electronically Signed By: Tessa Morel Signed Date: 01/21/2025 14:55 ET Workstation ID: [id number] Transcribed By: Self Edit Transcribed Date: 01/21/2025 [...] is recommended in 1 year. Mammo Location: [facility], [address] [place] [address], [address], . -------- FINAL REPORT -------- Dictated By: Tessa Morel Dictated Date: 01/21/2025 14:51 ET Assigned Physician: Tessa Morel Reviewed and Electronically Signed By: Tessa Morel Signed Date: 01/21/2025 14:55 ET Workstation ID: [id number] Transcribed By: Self Edit Transcribed Date: 01/21/2025 14:51 ET Arabella Breaux MD IMG BI PROCEDURES Final Result from Last 3 Months or Most Recently Relevant to Health Maintenance Insurance [facility] Care Teams Ccna Relationship Specialty Start Date End Date Arabella Breaux MD [address] [facility] [place] [address] PCP - General 09/23/10
--- NOTE | 2025-04-26 15:08 | MHC.OFFVIS ---
Intake Visit Reasons: worsening symptoms Allergies codeine (CODEINE) Allergy (Intermediate, Verified 04/16/25 12:54) DIZZINESS loratadine (LORATADINE) Allergy (Intermediate, Verified 04/16/25 12:54) NOSEBLEED, nose bleed, nose bleed,headaches amoxicillin (AMOXICILLIN) Allergy (Unknown, Verified 04/16/25 12:54) UNKNOWN REACTION-CHILDHOOD ALLERGY Environmental Allergy (Unknown, Uncoded 02/09/25 10:27) unknown Codeine Phosphate Adverse Reaction (Unknown, Uncoded 02/09/25 10:27) lightheaded HPI Comments Details: 64 yo woman with migraine, and h/o craniotomy and coiling of left supraclinoid ICA aneurysm in 2018 at [facility].?She had an episode in Sep causing electric shock feeling in the head probably from touching a hot electric wire. EEG was ok. [facility] Medical History Aneurysm Hepatic steatosis Abdominal fullness GERD (gastroesophageal reflux disease) Surgical History Hx of brain surgery Hx of colonoscopy Family History Father No problems noted. Mother No problems noted. 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 HEENT:?No headache, vision changes, hearing loss, nasal congestion, sore throat. Neurological:?No dizziness, syncope, seizures, numbness, tingling, weakness, tremors, memory loss. Psychiatric:?No anxiety, depression, mood swings, sleep disturbance, or hallucinations. Endocrine:?No heat/cold intolerance, polydipsia, polyuria, or hair/skin changes. Hematologic/Lymphatic:?No easy bruising, bleeding, or lymphadenopathy. Integumentary (Skin):?No rash, lesions, itching, or color changes. ? Physical Exam Neuro Other: Mental Status: Alert and oriented to person, place, and time. Normal attention. Normal spontaneous speech, fluency, and comprehension. No obvious issues with mood and memory. Affect is appropriate. Cranial Nerves: CN II: Visual powell full to confrontation, visual acuity intact. CN III, IV, : Pupils equal, round, reactive to light and accommodation. Extraocular movements are normal. CN V: Facial sensation is normal. CN VII: Facial movements symmetrical. CN VIII: Hearing intact to bedside conversation is normal. CN IX, X: Palate elevates symmetrically. CN XI: Shoulder shrug and head turn symmetrical. CN XII: Tongue midline without atrophy or fasciculations. Extrapyramidal: Full facial expressions and blinking. No rigidity. Movements are appropriate with no tremor or abnormality. Speech: Normal; no dysarthria or tremor. Assessment & Plan Assessment & Plan (1) Brain aneurysm: Comment: EEG at off in Sep 2024: [place] CT[place] brain [place] [facility]: s/p L ICA coiling, otherwise mild cerebellar atrophy CTA brain at [facility] [place] in March [place]: L supraclinoid 2mm, and R 1.5 PCom area aneurysms Code(s): I67.1 - Cerebral aneurysm, nonruptured Category: Medical (2) Anxiety: Code(s): F41.9 - Anxiety disorder, unspecified Category: Medical (3) Occipital neuralgia: Code(s): M54.81 - Occipital neuralgia Category: Medical Qualifiers: Laterality: bilateral Qualified Code(s): M54.81 - Occipital neuralgia (4) Migraine with aura, not intractable, without status migrainosus: Code(s): G43.109 - Migraine with aura, not intractable, without status migrainosus Category: Medical Plan Impression: a: H/o left supraclinoid ICA aneurysm coiling in 2017 at [facility]. CTA in 2023 did not reveal any other lesion b: Migraine w/o aura c: B/l brief headaches that can happen with occipital neuralgia or in some patients with migraine without any physical lesion d: Anxiety Rec: a: Reassuarnce and education. She was informed that her last scan in 2023 was fine w/o aneurysm. No scan at this time is needed b: Topiramate 25mg at night for headaches Medications: New topiramate 25 mg orally one at night; 90 tabs 1RF Coding Level of Care Code Est Pt Level 5 (67507) Diagnoses Brain aneurysm I67.1 Anxiety F41.9 Bilateral occipital neuralgia M54.81 Laterality: bilateral Migraine with aura, not intractable, without status migrainosus G43.109
== END 2025-04-26 15:29 | disposition home or self-care (01) ==
LOC: HO.HSM 14:57
PROVIDERS: PCP Internal Medicine; Visit Provider Psychiatry & Neurology Neurology
DX: I67.1 Cerebral aneurysm, nonruptured (principal); F41.9 Anxiety disorder, unspecified; M54.81 Occipital neuralgia; G43.109 Migraine with aura, not intractable, without status migrainosus
CPT/HCPCS: 99214

== ENCOUNTER → 2025-04-26 14:56 | Outpatient (BNVA) | payer OTHER, SELFPAY | PROVIDERS: PCP Internal Medicine; Visit Provider Psychiatry & Neurology Neurology | DX: I67.1 Cerebral aneurysm, nonruptured (principal); F41.9 Anxiety disorder, unspecified; M54.81 Occipital neuralgia; G43.109 Migraine with aura, not intractable, without status migrainosus | CPT/HCPCS: 99212 ==

== ENCOUNTER 2025-05-17 10:15 | Outpatient (REF) | payer OTHER, SELFPAY ==
--- NOTE | ~2025-05-17 | XR_ITS ---
EXAMINATION: XR CHEST CLINICAL INFORMATION: R05.9 - Cough, unspecified COMPARISON: None available. TECHNIQUE: 2 views of the chest were obtained. FINDINGS: The cardiac, hilar, and mediastinal contours are normal. Right cardiophrenic angle opacity, consistent with prominent epicardial fat pad. The lungs are clear bilaterally. There is no pneumothorax or pleural effusion. There is no focal osseous or soft tissue abnormality. XR/XR chest 2V IMPRESSION: No active pulmonary disease. Electronically signed by: Fabián Ritchie MD 05/17/2025 11:37 AM EDT
[2025-05-17 11:20] LABS: MANUAL DIFF FLAG NO
[2025-05-17 11:33] LABS: Hematocrit 40.2 % (37.0-47.0); Hemoglobin 13.0 g/dl (12.0-16.0); Imm Gran Abs Auto 0.02 X10*3/uL (0.00-0.03); Imm Gran Pct Auto 0.2 % (0.0-0.4); Lymphocytes Absolute Auto 3.1 X10*3/uL (1.2-4.9); Mean Corpuscular HGB Conc 32.3 g/dl (31.0-35.0); Mean Corpuscular Hemoglobin 27.7 pg (27.0-33.0); Mean Corpuscular Volume 85.5 fL (80.0-98.0); NRBC Abs Auto 0.000 X10*3/uL (0.0-0.012); NRBC Pct Auto 0.0 /100WBC (0.0-0.2); Platelet Count 217 X10*3/uL (160-400); Red Blood Count 4.70 X10*6/uL (4.20-5.50); White Blood Count 8.6 X10*3/uL (4.8-10.8)
[2025-05-20 02:24] LABS: Class Alternaria alternata 0; Class Aspergillus fumigatus 0; Class Bermuda Grass 0; Class Birch 0; Class Cat Dander 0; Class Cladosporium herbarum 0; Class Cockroach 0; Class Common Ragweed 0; Class Cottonwood 0; Class Derm. pterony 0; Class Dermatophagoides farinae 0; Class Dog Dander 0; Class Elm 0; Class Maple Box Elder 0; Class Mountain Cedar 0; Class Mouse Urine Protein 0; Class Mugwort 0; Class Oak 0; Class Penicillium crysogenum 0; Class Rough Pigweed 0; Class Sheep Sorrel 0; Class Sycamore 0; Class Timothy Grass 0; Class Walnut Tree 0; Class White Ash 0; Class White Mulberry 0; D002 - IgE D farinae <0.10 kU/L; E001 - IgE Cat Dander <0.10 kU/L; E005 - IgE Dog Dander <0.10 kU/L; G006 - IgE Timothy Grass <0.10 kU/L; I006-IgE Cockroach, German <0.10 kU/L; M002 - IgE Cladosporium herbar <0.10 kU/L; M003 - IgE Aspergillus fumigat <0.10 kU/L; M006 - IgE Alternaria alternat <0.10 kU/L; T001 IgE Maple/Box Elder <0.10 kU/L; T006 - IgE Cedar, Mountain <0.10 kU/L; T007 - IgE Oak, White <0.10 kU/L; T008 IgE Elm, American <0.10 kU/L; T010 - IgE Walnut <0.10 kU/L; T011 - IgE Maple Leaf Sycamore <0.10 kU/L; T014 - IgE Cottonwood <0.10 kU/L; T015 - IgE Ash, White <0.10 kU/L; T070 - IgE White Mulberry <0.10 kU/L; W001 - IgE Ragweed, Short <0.10 kU/L; W006 - IgE Mugwort <0.10 kU/L; W014 IgE Pigweed, Common <0.10 kU/L; W018 IgE Sheep Sorrel <0.10 kU/L
== END 2025-05-17 10:16 | disposition home or self-care (01) ==
LOC: HO.XRAY 10:15
PROVIDERS: PCP Internal Medicine; Referring Provider Internal Medicine; Visit Provider Nurse Practitioner Family
DX: J45.909 Unspecified asthma, uncomplicated (principal); R05.9 Cough, unspecified; Z91.09 Other allergy status, other than to drugs and biological substances
CPT/HCPCS: 36415; 71046; 82785; 85025; 86003; 99202

== ENCOUNTER 2025-05-17 10:15 | Outpatient (AMB) | payer OTHER, SELFPAY ==
--- NOTE | 2025-05-17 10:17 | MHC.OFFVIS ---
Vital Signs 05/17/25 10:21 Height 5 ft 5 in Weight 176 lb 5.917 oz BMI 29.3 BP 120/66 Blood Pressure Location Rt brachial Position Sitting Pulse 65 Pulse Source Pulse Oximeter Pulse Oximetry (%) 97 Oxygen Delivery Method Room Air Intake Visit Reasons: Asthma/ Cough Allergies codeine (CODEINE) Allergy (Intermediate, Verified 05/17/25 10:24) DIZZINESS loratadine (LORATADINE) Allergy (Intermediate, Verified 05/17/25 10:24) NOSEBLEED, nose bleed, nose bleed,headaches amoxicillin (AMOXICILLIN) Allergy (Unknown, Verified 05/17/25 10:24) UNKNOWN REACTION-CHILDHOOD ALLERGY Environmental Allergy (Unknown, Uncoded 05/17/25 10:24) unknown Codeine Phosphate Adverse Reaction (Unknown, Uncoded 05/17/25 10:24) lightheaded HPI HPI Asthma/ Cough: Details: Caroline is a pleasant 64 year old female, former smoker, with underlying asthma and GERD. She was referred by PCP for pulmonary for pulmonary evaluation. The patient has a history of asthma since childhood, characterized by severe episodes requiring hospital visits but never intubation. She underwent allergy testing, which revealed dust allergies, and received allergen immunotherapy. In recent years, she experiences respiratory symptoms primarily in colder months, progressing to bronchitis with dyspnea and mucus production. The mucus is initially clear but becomes martinez with increased coughing. She reports intermittent heaviness in the lungs over the past five years, with no consistent shortness of breath or wheezing outside of illness. Allergy medications like Benadryl provide temporary relief, while Zyrtec is less effective. The patient uses Symbicort as needed but is uncertain about its regular use, despite having a prescription. She has albuterol however doesn't use consistently. 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 She denies any pertinent family history. [facility] Medical History Aneurysm Hepatic steatosis Abdominal fullness GERD (gastroesophageal reflux disease) Surgical History Hx of brain surgery Hx of colonoscopy Family History Father No problems noted. Mother No problems noted. 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 Cognitive needs: No Hearing needs: No Vision needs: No Review of Systems Const Denies chills, Denies excessive sweating, Denies fever(s), Denies headache(s) and Denies night sweats Eyes Denies dry eyes, Denies irritation and Denies itchy eyes ENT Reports Normal hearing present, Denies headache(s), Denies nasal congestion, Denies nasal discharge, Denies post nasal drip and Denies sore throat Card Denies chest pain, Denies chest pain at rest, Denies chest pain with activity, Denies claudication, Denies leg edema, Denies orthopnea and Denies paroxysmal nocturnal dyspnea Resp Denies chest congestion, Denies excessive phlegm production, Denies pain on inspiration, Denies pain with cough and Denies stridor Musc Denies myalgias Neuro Reports Normal hearing present and Denies headache(s) Endo Denies excessive sweating Dragan/Lymph Denies lymphadenopathy Aller/Immun Denies itchy eyes and Denies seasonal rhinorrhea Physical Exam Vital Signs: Last Vital Signs Pulse 65 05/17/25 10:21 BP 120/66 05/17/25 10:21 Pulse Ox 97 05/17/25 10:21 Oxygen Delivery Method Room Air 05/17/25 10:21 BMI result Body Mass Index 29.3 Const General: cooperative, healthy appearing, comfortable, no acute distress, well developed and alert Nutritional Appearance: obese Orientation/consciousness: patient oriented x3 Limitations: no limitations HEENT Head: Yes normal to inspection, Yes normocephalic and Yes atraumatic Ears: hearing grossly normal bilaterally and external ears normal Eyes General: appearance normal, both eyes and all related structures Eyelids: Yes eyelids normal Sclerae: sclerae normal EOM: EOMs intact bilaterally Neck Neck: Yes normal visual inspection and Yes no lymphadenopathy Lymphatic: no lymphadenopathy noted Chest Chest palpation & inspection: normal inspection of the chest Resp Effort & Inspection: normal respiratory effort, able to speak in complete sentences, no audible wheezes, no cough, no stridor, not tachypneic, no tripod positioning and no use of accessory muscles Auscultation: diminished lung sounds Cardio Jugular venous distension: no JVD Rate: regular rate Rhythm: regular rhythm Skin Other: warm, dry General skin exam: no rashes or lesions noted Neuro General: patient oriented x3 Cranial nerves: Yes Normal hearing present Cognition (Neuro): normal cognition Gait exam (Neuro): Normal gait present Extrem General: Yes normal to inspection, Yes capillary refill normal, Yes no clubbing, cyanosis or edema and Yes no pedal edema Psych Appearance: grossly normal and well kempt Speech and movement: Normal speech and movement present and Clear speech present Affect: normal affect Attitude: cooperative Thought process: Normal thought process present Thought content: Normal thought content present Insight: Good insight present (Psych) Judgement: Good judgement present (Psych) Assessment & Plan Assessment & Plan (1) Asthma: Code(s): J45.909 - Unspecified asthma, uncomplicated Category: Medical (2) Environmental allergies: Code(s): Z91.09 - Other allergy status, other than to drugs and biological substances Category: Medical Plan The patient will undergo a pulmonary function test to assess lung function and response to bronchodilators. Allergy testing will be conducted to identify potential triggers for her respiratory symptoms. The patient is advised to start using Symbicort regularly, with one inhalation in the morning and one at night, increasing to two puffs if symptoms worsen. A chest x-ray is recommended to evaluate for any underlying parenchymal condition, given the history of bronchitis and asthma. All questions were answered and patient is in agreement of plan. Will follow up 8-10 weeks or sooner if needed. Orders: Orders Resp Allergy Profile Region I Today Z91.09 - Other allergy status, other than to drugs and biological substances XR chest 2V Today R05.9 - Cough, unspecified PFT pulmonary function test Today J45.909 - Unspecified asthma, uncomplicated Complete Blood Count Auto Diff Today Z91.09 - Other allergy status, other than to drugs and biological substances Immunoglobulin E Today Z91.09 - Other allergy status, other than to drugs and biological substances XR chest 2V Today R05.9 - Cough, unspecified Coding Level of Care Code New Pt Level 4 (68942) Diagnoses Asthma J45.909 Environmental allergies Z91.09
[2025-05-17 10:21] VITALS: BP 120/66; PULSE 65; O2SAT 97; BMI 29.3
--- OUTSIDE RECORDS SUMMARY | 2025-05-17 11:21 | XMS_ITS | Clinical Summary ---
Author Organization [address] Address [address] [place] [address] [place] [address] Phone Care Team Providers Care Bundle Cutter Name Role Phone Arabella Breaux MD Primary Care Provider [phone] Surgical History Surgery Date Site/Laterality Comments BREAST SURGERY 2009 Right PROCEDURE: ID UNLISTED PROCEDURE BREAST; COMMENT: b9 APPENDECTOMY PROCEDURE: [...] is recommended in 1 year. Mammo Location: [facility], [address] [place] [address], [id number], . -------- FINAL REPORT -------- Dictated By: Tessa Morel Dictated Date: 01/21/2025 14:51 ET Assigned Physician: Tessa Morel Reviewed and Electronically Signed By: Tessa Morel Signed Date: 01/21/2025 14:55 ET Workstation ID: [id number] Transcribed By: Self Edit Transcribed Date: 01/21/2025 [...] is recommended in 1 year. Mammo Location: [facility], [address] [place] [address], [address], . -------- FINAL REPORT -------- Dictated By: Tessa Morel Dictated Date: 01/21/2025 14:51 ET Assigned Physician: Tessa Morel Reviewed and Electronically Signed By: Tessa Morel Signed Date: 01/21/2025 14:55 ET Workstation ID: [id number] Transcribed By: Self Edit Transcribed Date: 01/21/2025 14:51 ET Arabella Breaux MD IMG BI PROCEDURES Final Result from Last 3 Months or Most Recently Relevant to Health Maintenance Insurance [facility] [employer] Care Teams Bundle Cutter Relationship Specialty Start Date End Date Arabella Breaux MD [address] [facility] [place] [address] PCP - General 09/23/10
== END 2025-05-17 10:56 | disposition home or self-care (01) ==
LOC: HO.HPS 10:16
PROVIDERS: PCP Internal Medicine; Referring Provider Internal Medicine; Visit Provider Nurse Practitioner Family
DX: J45.909 Unspecified asthma, uncomplicated (principal); Z91.09 Other allergy status, other than to drugs and biological substances
CPT/HCPCS: 99204

== ENCOUNTER → 2025-05-17 11:19 | Outpatient (BNV) | payer OTHER, SELFPAY | PROVIDERS: PCP Internal Medicine; Referring Provider Internal Medicine; Visit Provider Radiology Diagnostic Radiology | DX: R05.9 Cough, unspecified (principal) | CPT/HCPCS: 71046 ==

== ENCOUNTER 2025-05-25 06:16 | Day surgery (SDC) | payer OTHER, SELFPAY ==
--- OUTSIDE RECORDS SUMMARY | 2025-04-19 13:59 | XMS_ITS | Clinical Summary ---
Author Organization [facility] [address] [place] [address] Address [address] [place], [place] Phone Care Team Providers Care Conductor Sleeping Car Name Role Phone Arabella Breaux MD Primary Care Provider [phone] Encounters Date Type Department Care Team Description 01/21/2025 10:34 AM EDT - 01/21/2025 11:59 PM EDT Hospital Encounter Radiology Department [address] [phone] Encounter for screening mammogram for breast cancer Discharge Disposition: Home or Self Care from Last 3 Months Surgical History Surgery Date Site/Laterality Comments BREAST SURGERY 2009 Right PROCEDURE: [place] UNLISTED PROCEDURE BREAST; COMMENT: b9 APPENDECTOMY PROCEDURE: HISTORICAL APPENDECTOMY BREAST BIOPSY 2009 Right PROCEDURE: BX BREAST; PERC NEEDLE CORE W/IMAG GUID; COMMENT: b9 OTHER SURGICAL HISTORY 06/2018 PROCEDURE: ---- OTHER ----; COMMENT: post brain aneurysm clip Medical History Medical History Date Comments Aneurysm ([facility]/HCC V24) 01/12/2019 DX:Aneury sm ([facility]) Family History Medical History Relation [...] is recommended in 1 year. Mammo Location: [facility], [address] [place] [address], [address], . -------- FINAL REPORT -------- Dictated By: Tessa Morel Dictated Date: 01/21/2025 14:51 ET Assigned Physician: Tessa Morel Reviewed and Electronically Signed By: Tessa Morel Signed Date: 01/21/2025 14:55 ET Workstation ID: [id number] Transcribed By: Self Edit Transcribed Date: 01/21/2025 [...] is recommended in 1 year. Mammo Location: [facility], [address] [place] [address], [address], . -------- FINAL REPORT -------- Dictated By: Tsesa Morel Dictated Date: 01/21/2025 14:51 ET Assigned Physician: Tessa Morel Reviewed and Electronically Signed By: Tessa Morel Signed Date: 01/21/2025 14:55 ET Workstation ID: [id number] Transcribed By: Self Edit Transcribed Date: 01/21/2025 14:51 ET Arabella Breaux MD IMG BI PROCEDURES Final Result from Last 3 Months Insurance [id number] Care Teams Conductor Sleeping Car Relationship Specialty Start Date End Date Arabella Breaux MD [address] [place] [phone] PCP - General 09/23/10
[2025-05-21 06:51] VITALS: BMI 29.3
--- NOTE | 2025-05-21 11:09 | HO.ANESPROP2 ---
Documented by User: Polly Eden NP 05/21/25 11:21 HPI - Anesthesia Eval Consult details Narrative: 64 yr old female for colonoscopy Asthma: saw [facility] pulmonology, chest xray was ordered, normal findings; advised to use her ICS/LABA regularly. H/O brain aneurysm: s/p brain surgery at [facility] in 2018, medical clip in head, no MRIs; follows locally with [facility], last visit 04/2025 Recently referred to cardiology for ?RBBB on 03/2025 EKG: spoke to pt, she walks 2 miles every day, no CP/SOB PMFSH Active Problems Active Problems: All Active Problems (Updated 05/17/25 @ 13:00 by Germaine Peters NP) Asthma (Acute) Cough (Acute) Migraine with aura, not intractable, without status migrainosus (Acute) Occipital neuralgia (Acute) Idiopathic stabbing headache (Acute) Anxiety (Acute) Migraine (Acute) Cerebellar atrophy (Acute) Nasal congestion (Acute) Abnormal EKG (Acute) Chest heaviness (Acute) Neuralgia (Acute) Skin cancer screening (Acute) Recurrent cough (Acute) URI with cough and congestion (Acute) Dizziness (Acute) Otitis media (Acute) URI, acute (Acute) Brain aneurysm (Acute) Pressure in head (Acute) Respiratory tract congestion with cough (Acute) Blocked ear (Acute) Asthma, moderate persistent (Acute) Mammographic extreme density, left breast (Acute) Vitamin D deficiency (Acute) Rectal bleeding (Acute) Asthma exacerbation (Acute) Fatigue (Acute) Seasonal asthma (Acute) Numbness in both hands (Acute) Snoring (Acute) Daytime sleepiness (Acute) Foot pain, left (Acute) Sleep disturbance (Acute) Fatty liver (Acute) Vaginitis (Acute) Rash (Acute) Muscle stiffness (Acute) Tired (Acute) Dermatitis (Acute) Dysthymia (Acute) Tired (Acute) Encounter for general adult medical examination with abnormal findings (Acute) Environmental allergies (Acute) Nausea (Acute) Hepatic steatosis (Acute) Abdominal fullness (Acute) GERD (gastroesophageal reflux disease) (Acute) Past Medical History Medical History Aneurysm Hepatic steatosis Abdominal fullness GERD (gastroesophageal reflux disease) Family History Family History Father No problems noted. Mother No problems noted. Family history of problems with anesthesia: No Surgical History Surgical History Hx of brain surgery Hx of colonoscopy History of Problems with Anesthesia: No Social History Social History Household Members: None Housing: Condominium Alcohol intake: current Alcohol intake frequency: does not drink Patient Tobacco Use Status: Former Tobacco user e-Cigarette/Vaping Use: Never Used Use of substances other than those prescribed or required for medical reasons: No Have you been hit, kicked, punched, or otherwise hurt by someone within the past year? 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 Cognitive needs: No Hearing needs: No Vision needs: No Meds Allergies Allergy/AdvReac Type Severity Reaction Status Date / Time codeine (CODEINE) Allergy Intermediate DIZZINESS Verified 05/17/25 10:24 loratadine (LORATADINE) Allergy Intermediate NOSEBLEED, Verified 05/17/25 10:24 nose bleed, nose bleed,headaches amoxicillin (AMOXICILLIN) Allergy Unknown UNKNOWN Verified 05/17/25 10:24 REACTION-CHILDHOOD ALLERGY Environmental Allergy Unknown unknown Uncoded 05/17/25 10:24 Codeine Phosphate AdvReac Unknown lightheaded Uncoded 05/17/25 10:24 Exam Height,Weight and Vital Signs: Height 5 ft 5 in Weight 79.832 kg Narrative Narrative: EKG 03/2025: NSR, ?incomplete RBBB, rate 69 Head CTA 2023 IMPRESSION: Status post left supraclinoid ICA aneurysm repair. No definite evidence of residual aneurysmal sac. No large vessel occlusion. No acute intracranial hemorrhage or infarct. Assessment and Plan Final Anesthetic Review Family History of Problems with Anesthesia: No History of Problems with Anesthesia: No Documented by User: John Carbajal MD 05/25/25 07:30 PMFSH Past Medical History Medical History Aneurysm Hepatic steatosis Abdominal fullness GERD (gastroesophageal reflux disease) Family History Family History Father No problems noted. Mother No problems noted. Surgical History Surgical History Hx of brain surgery Hx of colonoscopy Social History Social History Household Members: None Housing: Condominium Alcohol intake: current Alcohol intake frequency: does not drink Patient Tobacco Use Status: Former Tobacco user e-Cigarette/Vaping Use: Never Used Use of substances other than those prescribed or required for medical reasons: No Have you been hit, kicked, punched, or otherwise hurt by someone within the past year? 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 Cognitive needs: No Hearing needs: No Vision needs: No Meds Allergies Allergy/AdvReac Type Severity Reaction Status Date / Time codeine (CODEINE) Allergy Intermediate DIZZINESS Verified 05/17/25 10:24 loratadine (LORATADINE) Allergy Intermediate NOSEBLEED, Verified 05/17/25 10:24 nose bleed, nose bleed,headaches amoxicillin (AMOXICILLIN) Allergy Unknown UNKNOWN Verified 05/17/25 10:24 REACTION-CHILDHOOD ALLERGY Environmental Allergy Unknown unknown Uncoded 05/17/25 10:24 Codeine Phosphate AdvReac Unknown lightheaded Uncoded 05/17/25 10:24 Exam Airway Mallampati Class: II TM Dist: <=3cm Neck ROM: Full Loose/Missing/Broken Teeth: No Heart: ok Lungs: ok Assessment and Plan Assessment Anesthesia Assessment: Anesthesia Plan Discussed and Chart Reviewed Final Anesthetic Review NPO: Yes ASA Class: III Final Preanesthetic Review: No Changes in Pt Med Stat, Meds/Allgs Chart Reviewed, Consent Obtained/Reviewed and Anes Risks/Benef Reviewed Patient Risk: Intermediate Procedure Risk: Low Anesthetic Plan Anesthetic Plan: MAC: and Agree w/ Assess. and Plan Disposition: Standard PACU
[2025-05-25 06:57] VITALS: BMI 28.4
[2025-05-25 07:04] VITALS: BMI 28.4
[2025-05-25 07:10] VITALS: BP 101/61; PULSE 70; RESP 20; TEMP 36.9; O2SAT 98
[2025-05-25] MEDS: Lactated Ringers 1,000 ML 100 ML IVCONT (07:22)
--- NOTE | 2025-05-25 07:28 | PC.NURSE ---
Dr Carbajal aware pt currently wearing contact lenses. okay'd pt to leave them in for her procedure. Pt states she usually sleeps with them in.
--- NOTE | 2025-05-25 07:43 | MHC.SHP ---
Pre-Procedural Eval Section A - 24 Hr Update-Section A only Date of Service: 05/25/25 Section B - Complete if H&P > 30 days Chief Complaint: screening Relevant Family History (Specify if Yes): No Relevant Social History: None Present Medications: see Short Stay Collaborative assessment Medical History: Significant History (Aneurysm Hepatic steatosis Abdominal fullness GERD (gastroesophageal reflux disease)) History of Previous Operations: Relevant previous surgery/procedure and date(s) ( Hx of brain surgery Hx of colonoscopy) Allergies: Allergies Allergy/AdvReac Type Severity Reaction Status Date / Time codeine (CODEINE) Allergy Intermediate DIZZINESS Verified 05/17/25 10:24 loratadine (LORATADINE) Allergy Intermediate NOSEBLEED, Verified 05/17/25 10:24 nose bleed, nose bleed,headaches amoxicillin (AMOXICILLIN) Allergy Unknown UNKNOWN Verified 05/17/25 10:24 REACTION-CHILDHOOD ALLERGY Environmental Allergy Unknown unknown Uncoded 05/17/25 10:24 Codeine Phosphate AdvReac Unknown lightheaded Uncoded 05/17/25 10:24 Review of Systems Sugical H&P ROS: Negative: Constitution, Cardiovascular, Respiratory, Neurological, Psychiatric, Hem-Onc, Allergic/Immunologic, Gastrointestinal, Genitourinary, Musculoskeletal, Integumentary, Endocrine and Eyes/Ears/Nose/Throat Exam Surgical H&P Exam: Normal: HEENT, Normal: Heart, Normal: Lungs, Normal: Extremities, Normal: Abdomen, Normal: Skin and Normal: Neurological Plan Diagnosis/Plan: Unchanged I have reviewed the history and physical and performed a pertinent physical examination on my patient. No changes have occurred unless specified. Time Spent With Patient Time: Total time managing care of this patient today ____ minutes.
--- NOTE | 2025-05-25 08:13 | P.OPN-COLO_ITS ---
Colonoscopy Operative Note Operative Note Date of Service: 05/25/25 Narrative: Operative Information Procedure Description: Colonoscopy Indication: hx of colon polyps Anesthesia: MAC COLONOSCOPY Instrument: Olympus variable stiffness pediatric scope 190L Colonoscopy Monitoring: Vital signs and clinical assessment, continuous EKG monitoring, Pulse oximetry, Carbon Dioxide monitoring and blood pressure monitoring were done throughout the procedure. Colon withdrawal time was 20 minutes. Procedure: The patient was placed in the left lateral decubitis position and pre-procedure medications were administered. After a digital rectal examination of the ano-rectum, the video colonoscope was inserted into the rectum and advanced through the colon to the cecum/TI. The colonoscope was slowly withdrawn in a retrograde panoramic fashion and the colon mucosa was carefully examined including a retroflexed view of the rectum. Findings and interventions are described below. Procedure Difficulty: easy Findings: Terminal Ileum-normal Cecum:normal right sided retroflexion- normal Ascending Colon: normal Transverse Colon - 3-4 mm sessile polyp removed with cold forceps Descending Colon:normal Sigmoid Colon: mild diverticulosis Rectum: Retroflexion with small internal hemorrhoids seen, grade I, 10 mm inflammed polypoid lesion, semi pedunculated noted on retroflexion in distal rectum, injected with few cc of epinephrine and removed piece meal with cold snare and then clipped x 3 with nexpowder sprayed Anorectum - normal Intervention: cold forceps, cold snare and epinephrine injection, clips Colon preparation: [place] Bowel Preparation Scale Right colon; 3 Transverse colon: 3 Left colon; 3 (0 = Unprepared colon segment with mucosa not seen due to solid stool that cannot be cleared. 1 = Portion of mucosa of the colon segment seen, but other areas of the colon segment not well seen due to staining, residual stool and/or opaque liquid. 2 = Minor amount of residual staining, small fragments of stool and/or opaque liquid, but mucosa of colon segment seen well. 3 = Entire mucosa of colon segment seen well with no residual staining, small fragments of stool or opaque liquid) Impression and Post Procedure Diagnosis: diverticulosis colon polyps internal hemorrhoids Plan: High fiber diet leaflet Avoid straining at stool, epsom salts and sitz bath, anusol supps or cream Repeat Colonoscopy in 2-3 years or earlier if clinically indicated Above findings were reviewed with the patient and relevant handouts were provided if indicated.
[2025-05-25 08:19] VITALS: BP 90/63; PULSE 83; RESP 18; TEMP 36.9; O2SAT 97
[2025-05-25 08:34] VITALS: BP 110/52; PULSE 60; RESP 16; TEMP 36.1; O2SAT 99
== END 2025-05-25 08:54 | disposition home or self-care (01) ==
PROVIDERS: PCP Internal Medicine; Visit Provider Internal Medicine Gastroenterology
PROC: 0DJD8ZZ Inspection of Lower Intestinal Tract, Via Natural or Artificial Opening Endoscopic (ICD-10-PCS; CPT 45378; principal; 2025-05-25 07:30)
DX: Z12.11 Encounter for screening for malignant neoplasm of colon (principal); Z86.0101 Personal history of adenomatous and serrated colon polyps; D01.3 Carcinoma in situ of anus and anal canal; K63.5 Polyp of colon; D12.8 Benign neoplasm of rectum; K57.30 Diverticulosis of large intestine without perforation or abscess without bleeding; K64.0 First degree hemorrhoids
CPT/HCPCS: 45385; 45380; 45381; 88305; 88341; 88342; J0168; J2003; J2704

== ENCOUNTER → 2025-05-25 06:16 | Outpatient (BNV) | payer OTHER, SELFPAY | PROVIDERS: PCP Internal Medicine; Visit Provider Internal Medicine Gastroenterology | DX: Z12.11 Encounter for screening for malignant neoplasm of colon (principal); K63.5 Polyp of colon; K57.90 Diverticulosis of intestine, part unspecified, without perforation or abscess without bleeding; K64.8 Other hemorrhoids | CPT/HCPCS: 45380; 45381; 45385 ==

== ENCOUNTER 2025-05-31 15:06 | Outpatient (AMB) | payer OTHER, SELFPAY ==
--- NOTE | 2025-05-31 15:09 | MHC.OFFVIS ---
Vital Signs 05/31/25 15:10 Height 5 ft 5 in Weight 174 lb BMI 29.0 BP 134/68 Blood Pressure Location Rt brachial Position Sitting Pulse 83 Intake Visit Reasons: dysplasia of anus Intake Note: Patient referred by Dr. Lou for lesion on colon biopsied during colonoscopy. Patient c/o: feels nervous about results. 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: No Accompanied by: Self / Same As Patient Allergies codeine (CODEINE) Allergy (Intermediate, Verified 05/31/25 15:15) DIZZINESS loratadine (LORATADINE) Allergy (Intermediate, Verified 05/31/25 15:15) NOSEBLEED, nose bleed, nose bleed,headaches amoxicillin (AMOXICILLIN) Allergy (Unknown, Verified 05/31/25 15:15) UNKNOWN REACTION-CHILDHOOD ALLERGY Environmental Allergy (Unknown, Uncoded 05/31/25 15:15) unknown Codeine Phosphate Adverse Reaction (Unknown, Uncoded 05/31/25 15:15) lightheaded Medication List - Last Reconciled 05/31/25 by Josiah Duggan MD albuterol sulfate 90 mcg/actuation (ProAir HFA) 1 inh inhalation QID PRN 30 days budesonide-formoterol 160-4.5 mcg/actuation (Symbicort) 2 puffs inhalation BID 30 days cetirizine (Zyrtec) 10 mg PO DAILY 90 days cetirizine-pseudoephedrine 5-120 mg ER 1 tab PO BID 7 days fluticasone propionate 50 mcg/actuation 1 spray intranasal Q12H topiramate 25 mg orally one at night; HPI HPI dysplasia of anus: Details: 64 year female referred for an AIN lesion in the anal rectum. She had a colonoscopy with Dr. Lou last May 25. 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 She denies any anal complaints. She denies any anal receptive intercourse. She denies any bleeding or any complaints with regards to her rectum. She has a history of a craniotomy for clipping of an aneurysm in the past. [facility] Medical History Aneurysm Hepatic steatosis Abdominal fullness GERD (gastroesophageal reflux disease) Surgical History Hx of brain surgery Hx of colonoscopy Family History Father No problems noted. Mother No problems noted. 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 Cognitive needs: No Hearing needs: No Vision needs: No Review of Systems Const Denies chills and Denies fever(s) Card Denies chest pain, Denies dyspnea and Denies dyspnea on exertion Resp Denies cough, Denies dyspnea and Denies dyspnea on exertion GI Denies hematochezia and Denies change in bowel habits Denies hematuria Musc Denies back pain and Denies limited range of motion Neuro Denies focal weakness and Denies convulsions Psych Denies depression and Denies mood swings Physical Exam Vital Signs: Last Vital Signs Pulse 83 05/31/25 15:10 BP 134/68 05/31/25 15:10 BMI result Body Mass Index 29.0 Const General: comfortable and no acute distress Orientation/consciousness: patient oriented x3 Neck Neck: Yes no lymphadenopathy Resp Auscultation: clear to auscultation bilaterally Cardio Rhythm: regular rhythm GI Other: Small external hemorrhoids Palpation (GI): Soft to palpation, nontender and no guarding Neuro General: patient oriented x3 Office Procedures Anoscopy She was in prone luis-knife position. The anoscope was gently inserted a full examination of the anal canal was done. I did not see any lesions. She did have some small hemorrhoidal columns. There were no ulceration or any abnormal looking mucosa. The biopsy clip was seen to be in place. There were no lesions surrounding this. There was no induration on digital exam. There was no bleeding. 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 Anoscopy does not reveal any persistent lesion. There was no polyp or any mucosal abnormality seen. I have discussed the above with Dr. Lou. He plans to do a flexible sigmoidoscopy in 6 months. I will bring the patient in for an anal Pap in the next 2-3 weeks She understands the plan well. Regardless of the sigmoidoscopy findings, she we will need to be monitored for anoscopy every 6 months here in the office. Coding Level of Care Code New Pt Level 3 (07447) Diagnoses Anal dysplasia K62.82 CPT Codes Details - CPT: 19024-[id number] ([id number])
[2025-05-31 15:10] VITALS: BP 134/68; PULSE 83; BMI 29.0
--- OUTSIDE RECORDS SUMMARY | 2025-05-31 18:18 | XMS_ITS | Clinical Summary ---
Author Organization [address] Address [address] [place] [address] [place] [address] Phone Care Team Providers Care Nursing Care Partner Name Role Phone Arabella Breaux MD Primary Care Provider [phone] Surgical History Surgery Date Site/Laterality Comments BREAST [...] - Risk 60-74 years 1-dose series) 2022 Depression Screening 09/23/2024 COVID-19 Vaccine ( - season) 2025 09/17/2022, 04/08/2022, 08/21/2021, Additional history exists Influenza Vaccine (#1) 2025 Breast Cancer Screening [...] is recommended in 1 year. Mammo Location: [facility], [address] [place] [address], [id number], . -------- FINAL REPORT -------- Dictated By: Tessa Morel Dictated Date: 01/21/2025 14:51 ET Assigned Physician: Tessa Morel Reviewed and Electronically Signed By: Tessa Morel Signed Date: 01/21/2025 14:55 ET Workstation ID: [id number] Transcribed By: Self Edit Transcribed Date: 01/21/2025 [...] is recommended in 1 year. Mammo Location: [facility], [address] [place] [address], [id number], . -------- FINAL REPORT -------- Dictated By: Tessa Morel Dictated Date: 01/21/2025 14:51 ET Assigned Physician: Tessa Morel Reviewed and Electronically Signed By: Tessa Morle Signed Date: 01/21/2025 14:55 ET Workstation ID: [id number] Transcribed By: Self Edit Transcribed Date: 01/21/2025 14:51 ET Arabella Breaux MD IMG BI PROCEDURES Final Result from Last 3 Months or Most Recently Relevant to Health Maintenance Insurance [facility] [employer] Care Teams Nursing Care Partner Relationship Specialty Start Date End Date Arabella Breaux MD [address] [place] [address] PCP - General 09/23/10
== END 2025-05-31 15:43 | disposition home or self-care (01) ==
LOC: HO.HGS 15:07
PROVIDERS: PCP Internal Medicine; Visit Provider Surgery
DX: K62.82 Dysplasia of anus (principal)
CPT/HCPCS: 46600; 99203

== ENCOUNTER → 2025-05-31 15:06 | Outpatient (BNVA) | payer OTHER, SELFPAY | PROVIDERS: PCP Internal Medicine; Visit Provider Surgery | DX: K62.82 Dysplasia of anus (principal) | CPT/HCPCS: 46600; 99202 ==

== ENCOUNTER 2025-06-14 10:50 | Outpatient (REF) | payer OTHER, SELFPAY | END 2025-06-14 10:51 | disposition home or self-care (01) | LOC: HO.LNP 10:50 | PROVIDERS: PCP Internal Medicine; Visit Provider Surgery | DX: K62.82 Dysplasia of anus (principal) | CPT/HCPCS: 88112; 99212 ==

== ENCOUNTER 2025-06-14 10:50 | Outpatient (AMB) | payer OTHER, SELFPAY ==
--- NOTE | 2025-06-14 10:54 | A.OFFVIS_ITS ---
Vital Signs 06/14/25 11:01 Height 5 ft 5 in Weight 173 lb 15.997 oz BMI 29.0 BP 142/64 H Blood Pressure Location Lt brachial Position Sitting Pulse 64 Intake Visit Reasons: 2wk fu/v anal dysplasia Intake Note: Patient was scheduled today to follow up anal dysplasia. Due for anal pap exam as directed on last office visit 05-31-2025. Patient c/o: no concerns. 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 I had done her anoscopy 2 weeks ago in view of the history of AIN 2-3 for a distal rectal/anal polyp removed on colonoscopy She denies any new complaints. [facility] Medical History Aneurysm Hepatic steatosis Abdominal fullness GERD (gastroesophageal reflux disease) Surgical History Hx of brain surgery Hx of colonoscopy Family History Father No problems noted. Mother No problems noted. 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 The cytology brush was inserted in the anal canal was rotated multiple times. The brush was then dipped in cytology prep. She tolerated procedure well. There were no immediate complications. 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 She tolerated procedure well. 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
[2025-06-14 11:01] VITALS: BP 142/64; PULSE 64; BMI 29.0
--- OUTSIDE RECORDS SUMMARY | 2025-06-14 13:27 | XMS_ITS | Clinical Summary ---
Author Organization [address] Address [address] [place] [address] [place] [address] Phone Care Team Providers Care Flight Test Data Acquisition Technician Name Role Phone Arabella Breaux MD Primary Care Provider [phone] Surgical History Surgery Date Site/Laterality Comments BREAST SURGERY 2009 Right PROCEDURE: MT UNLISTED PROCEDURE BREAST; COMMENT: b9 APPENDECTOMY PROCEDURE: [...] Sex Female 10:27 PM EST Gender Identity Female 06/06/2025 9:26 AM EDT Sexual Orientation Straight 06/06/2025 9: 26 AM EDT Obstetrics History Para Term AB IAB SAB [...] Depression Screening 09/23/2024 COVID-19 Vaccine ( - 2024- season) 2025 09/17/2022, 04/08/2022, 08/21/2021, Additional history [...] is recommended in 1 year. Mammo Location: [facility], [address] [place] [address], [id number], . -------- FINAL REPORT -------- Dictated By: Tessa Morel Dictated Date: 01/21/2025 14:51 ET Assigned Physician: Tessa Morel Reviewed and Electronically Signed By: Tessa Morel Signed Date: 01/21/2025 14:55 ET Workstation ID: [id number] Transcribed By: Self Edit Transcribed Date: 01/21/2025 [...] is recommended in 1 year. Mammo Location: [facility], [address] [place] [address], [address], . -------- FINAL REPORT -------- Dictated By: Tessa Morel Dictated Date: 01/21/2025 14:51 ET Assigned Physician: Tessa Morel Reviewed and Electronically Signed By: Tessa Morel Signed Date: 01/21/2025 14:55 ET Workstation ID: [id number] Transcribed By: Self Edit Transcribed Date: 01/21/2025 14:51 ET Arabella Breaux MD IMG BI PROCEDURES Final Result from Last 3 Months or Most Recently Relevant to Health Maintenance Insurance [facility] [employer] Care Teams Flight Test Data Acquisition Technician Relationship Specialty Start Date End Date Arabella Breaux MD [address] [place] [address] [facility] - General 09/23/10
== END 2025-06-14 11:09 | disposition home or self-care (01) ==
LOC: HO.HGS 10:51
PROVIDERS: PCP Internal Medicine; Visit Provider Surgery
DX: K62.82 Dysplasia of anus (principal)
CPT/HCPCS: 99213

== ENCOUNTER 2025-08-09 09:41 | Outpatient (AMB) | payer OTHER, SELFPAY ==
[2025-08-09 09:52] VITALS: BP 130/70; PULSE 72; BMI 30.4
--- NOTE | 2025-08-09 09:52 | A.OFFVIS_ITS ---
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 Required: No Allergies codeine (CODEINE) Allergy (Intermediate, Verified 06/14/25 11:02) DIZZINESS loratadine (LORATADINE) Allergy (Intermediate, Verified 06/14/25 11:02) NOSEBLEED, nose bleed, nose bleed,headaches amoxicillin (AMOXICILLIN) Allergy (Unknown, Verified 06/14/25 11:02) UNKNOWN REACTION-CHILDHOOD ALLERGY Environmental Allergy (Unknown, Uncoded 06/14/25 11:02) unknown Codeine Phosphate Adverse Reaction (Unknown, Uncoded 06/14/25 11:02) lightheaded Medication List - Last Reconciled 08/09/25 by Praful Bowen MD albuterol sulfate 90 mcg/actuation (ProAir HFA) 1 inh inhalation QID PRN 30 days budesonide-formoterol 160-4.5 mcg/actuation (Symbicort) 2 puffs inhalation BID 30 days fluticasone propionate 50 mcg/actuation 1 spray intranasal Q12H topiramate 25 mg orally one at night; HPI Comments Details: Thank you for referring Caroline in cardiology consultation today for precordial chest pain. She is a 65-year-old female with prior history of cerebral aneurysm repair, mild hyperlipidemia not on treatment, asthma was referred to us for precordial chest pain. Patient says that few months ago she was under lot of stress at the time she would notice intermittent episodes of pressure-like symptoms under stressful situations since then would resolve. She says she walks her dog regularly and does not have any symptoms of pressure while doing that. She also feels anxious and sometimes feels a rapid heart rate and also has exertional shortness of breath. She denies any orthopnea, PND, leg edema. No prolonged palpitation irregular heartbeat reported by her. She says since then more recently her symptoms of stress have reduced and her symptoms of chest pressure have improved as well. She is worried about a heart held due to family history of her mother passing away at age 67 from possible heart-related issues although she is not sure as this happened in her [place] country and there was no follow-up after that. Her last LDL is 125 mg/dL. She is currently not on any treatment. [facility] Medical History Aneurysm Hepatic steatosis Abdominal fullness GERD (gastroesophageal reflux disease) Surgical History Hx of brain surgery Hx of colonoscopy Family History Father No problems noted. Mother No problems noted. 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 Cognitive needs: No Hearing needs: No Vision needs: No Review of Systems Const Denies chills, Denies fatigue, Denies fever(s), Denies frequent falls, Denies weakness, Denies weight gain and Denies weight loss Eyes Reports loss of vision ENT Reports dizziness Card Reports chest pain, Denies leg edema, Reports lightheadedness, Reports palpitations, Reports dyspnea, Reports dyspnea on exertion, Reports orthopnea and Denies other (loss of consciousness) Resp Denies cough, Reports dyspnea, Reports dyspnea on exertion and Denies wheezing GI Denies hematochezia and Denies change in stool character Denies urinary frequency and Denies dysuria Musc Denies abnormal gait, Reports muscle weakness, Reports numbness, Reports radiating pain into limb and Reports tingling Skin/Breast Denies nail changes and Denies rash Neuro Denies abnormal gait, Reports dizziness, Denies frequent falls, Reports loss of vision, Denies memory loss, Reports numbness, Reports tingling and Denies weakness Psych Denies depression and Denies memory loss Endo Denies fatigue and Reports palpitations Dragan/Lymph Reports easy bruising and Reports other (anemia) Aller/Immun Denies wheezing Physical Exam Vital Signs: Last Vital Signs Pulse 72 08/09/25 09:52 BP 130/70 08/09/25 09:52 BMI result Body Mass Index 30.4 Const General: cooperative, comfortable, no acute distress, alert, awake, Physically active and well groomed Nutritional Appearance: overweight Orientation/consciousness: patient oriented x3 Limitations: no limitations HEENT Head: Yes normocephalic and Yes atraumatic Neck Neck: Yes trachea midline, Yes supple and Yes no JVD Resp Effort & Inspection: normal respiratory effort Auscultation: clear to auscultation bilaterally Cardio Jugular venous distension: no JVD Rate: regular rate Rhythm: regular rhythm Heart sounds: S1 normal heart sound present, S2 normal heart sound present, no click, no gallops, no murmurs and no rubs GI Auscultation: normal bowel sounds Skin General skin exam: no rashes or lesions noted Neuro General: patient oriented x3 and no focal motor deficits Extrem General: Yes no clubbing, cyanosis or edema Psych Appearance: grossly normal Office Procedures EKG Details: EKG shows normal sinus rhythm with normal EKGs [id number], Complete Assessment & Plan Assessment & Plan (1) Atypical chest pain: Code(s): R07.89 - Other chest pain Category: Medical Plan: Atypical chest pain with stress-induced discomfort in the precordial area with no exertional symptoms in this middle-aged woman with mild hyperlipidemia, unclear family history, prior smoking. Underlying obstructive coronary artery disease needs to be ruled out. Will suggest a stress echocardiogram to further assess for the same. Will also suggest an echocardiogram to evaluate for cardiac structure and function to evaluate for hypertensive heart disease and pulmonary hypertension. These tests will be scheduled in near future. Further treatment based on the finding. If these tests are within normal limits at a reasonable workload I would strongly recommend her to undergo coronary calcium score to further guide therapy and treatment and risk factor modification with target treatment for LDL. This was discussed with her. She understands. Follow up in the clinic in 4 weeks after above-mentioned test. Thank you for allowing me to partake in her care Orders: Orders CA echo stress exercise Today R07.89 - Other chest pain CA echo transthoracic complete Today R07.89 - Other chest pain Coding Level of Care Code New Pt Level 4 (05534) Complex EM visit Add On G2211 Diagnoses Atypical chest pain R07. CPT Codes EKG - CPT: 93857-Fbycdgmsycewxqigy, Complete ([id number])
== END 2025-08-09 10:16 | disposition home or self-care (01) ==
LOC: HO.HCS 09:42
PROVIDERS: PCP Internal Medicine; Visit Provider Internal Medicine Cardiovascular Disease
DX: R07.89 Other chest pain (principal)
CPT/HCPCS: 93010; 99204

== ENCOUNTER → 2025-08-09 09:41 | Outpatient (BNVA) | payer OTHER, SELFPAY | PROVIDERS: PCP Internal Medicine; Visit Provider Internal Medicine Cardiovascular Disease | DX: R07.2 Precordial pain (principal); R07.89 Other chest pain | CPT/HCPCS: 93005; 99202 ==